=== PATIENT | female | born 1970 | race Caucasian/White ===

== ENCOUNTER 2018-06-15 19:20 | Emergency (ER) | payer MEDICARE, MEDICAID, SELFPAY ==
[2018-06-15] VITALS (8 sets, daily range): BP systolic 90–105; BP diastolic 60–74; PULSE 77–93; RESP 18–22; TEMP 36.7; O2SAT 93–96
--- NOTE | 2018-06-15 19:27 | DI.RAD.S_ITS ---
PROCEDURE: XR CHEST 1V INDICATIONS: chest pain TECHNIQUE: One view of the chest was acquired. COMPARISON: [facility], CR, XR CHEST 1 VIEW, 05/24/2018, 12:10. FINDINGS: Surgical changes and devices: None. Lungs and pleura: No pleural effusions or pneumothorax. Lungs are clear. Mediastinum: Mediastinal contours appear normal. Heart size is normal. Bones and chest wall: No suspicious bony lesions. Overlying soft tissues appear unremarkable. IMPRESSION: No acute pulmonary process. Dictated by: Keri Benites M.D. on 06/15/2018 at 20:40 Approved by: Keri Benites M.D. on 06/15/2018 at 20:41
[2018-06-15 19:49] LABS: Add Manual Diff / Slide Review NO; Basophils Percent Auto 0.6 % (0-2); Eosinophils Percent Auto 1.7 % (2-4); Hematocrit 39.7 % (36-46); Hemoglobin 13.2 g/dL (12.0-16.0); Lymphocytes Percent Auto 47.9 % (25-40); Mean Corpuscular HGB Conc 33.4 % (30-36); Mean Corpuscular Hemoglobin 28.2 PG (26-34); Mean Corpuscular Volume 84.3 fL (80-100); Monocytes Percent Auto 8.8 % (3-14); Neutrophils Absolute Auto 5000 /uL (3000-5900); Platelet Count 340 X10^3/uL (150-400); White Blood Cell Count 12.2 X10^3/uL (4.5-11.0)
[2018-06-15 19:55] LABS: Prothrombin Time 10.4 SECONDS (10.1-12.7)
[2018-06-15 19:58] LABS: PTT Partial Thromboplastin Tim 31 SECONDS (26.4-36.2)
[2018-06-15 19:59] LABS: Alanine Aminotransferase 24 IU/L (9-52); Albumin 3.8 g/dL (3.5-5.0); Albumin Globulin Ratio 1.2 (1.0-2.8); Alkaline Phosphatase 90 U/L (38-126); Aspartate Aminotransferase 22 IU/L (14-36); BUN Creatinine Ratio 7.3 (6-22); Bilirubin Total 0.2 mg/dL (0.2-1.3); Blood Urea Nitrogen 8 mg/dL (7-17); Calcium 8.6 mg/dL (8.4-10.2); Carbon Dioxide 28 mmol/L (22-32); Chloride 104 mmol/L (98-107); Creatine Kinase 56 U/L (30-135); Estimated Glomerular Filt Rate 52.8 mL/min (>60); Globulin 3.1 g/dL (1.7-4.1); Glucose 114 mg/dL (70-100); HEMOLYSIS < 15 (0-50); Lipase 106 U/L (23-300); Potassium 4.1 mmol/L (3.4-5.1); Sodium 140 mmol/L (137-145); Total Protein 6.9 g/dL (6.3-8.2)
[2018-06-15 20:12] LABS: Troponin I < 0.012 ng/mL (0.01-0.034)
--- NOTE | 2018-06-15 20:33 | DI.CT.S_ITS ---
PROCEDURE: CT ANGIO CHEST PE PROTOCOL INDICATIONS: SOB, CP, sedentary lifestyle, tachycardic TECHNIQUE: After the administration of intravenous contrast, 2 mm thick sections acquired from the pulmonary apices to the posterior costophrenic angles. 3-dimensional maximum intensity projection (MIP) coronal and sagittal reformats were then acquired through the thorax. For radiation dose reduction, the following was used: automated exposure control, adjustment of mA and/or kV according to patient size. COMPARISON: [facility], CR, XR CHEST 1V, 06/15/2018, 19:37. [facility], CT, CT ANGIO CHEST ABDOMEN, 05/25/2018, 13:58. FINDINGS: Image quality: Excellent. Pulmonary arteries: Pulmonary arteries are normal in size, and demonstrate no intraluminal filling defects to suggest central pulmonary embolism. Lungs and pleura: Minimal appearance of scattered groundglass like opacities. These are suspected to be residual of multiple areas of opacity identified on the 05/25/18 exam. No pleural effusions or pneumothorax. Central and peripheral airways are patent. Mediastinum: Heart size is normal, without pericardial effusion. No mediastinal or hilar adenopathy. Thoracic aorta is normal in caliber and enhancement. Esophagus is normal in caliber, without hiatal hernia. Bones and chest wall: No suspicious bony lesions. Ribs and thoracic spine appear intact throughout. Thyroid gland is unremarkable. No axillary or supraclavicular adenopathy. Abdomen: Hepatic cyst is noted. Otherwise, visualized upper abdominal solid organs appear normal in the early arterial phase of enhancement. IMPRESSION: 1. No pulmonary embolism. 2. Faint scattered groundglass opacities suggestive of resolving previously identified infection/inflammation. Dictated by: Keri Benites M.D. on 06/16/2018 at 8:44 Approved by: Keri Benites M.D. on 06/16/2018 at 8:47
--- NOTE | 2018-06-15 20:55 | ED_ITS ---
HPI - Chest Pain General Chief Complaint: Chest Pain Stated Complaint: Chest Pain Time Seen by Provider: 06/15/18 19:25 Source: patient and EMS Mode of arrival: EMS Limitations: no limitations History of Present Illness HPI narrative: 48-year-old female with history of hypertension hyperlipidemia presents with sharp and stabbing anterior chest pain without palliation or radiation which started sometime around noon today. She states it does hurt worse with movement or deep breath. She denies associated symptoms such as dizziness, weakness or lightheadedness. She denies any nausea, vomiting or diarrhea. She denies any history of the same. She does state that she feels short of breath but with further discussion it seems more related to a discomfort with a deep breath. She denies any recent travel, or injuries or surgeries, history of blood clots or cancer, she does mention that she historically just lays in bed all the time. She denies any lower extremity swelling or pain nor does she use any type of blood thinner. She does occasionally take aspirin. Patient was transported by EMS and was administered nitroglycerin which had no effect and morphine prior to her arrival. The morphine helped but that combination lowered her blood pressure to the 90s. MD complaint: chest pain Onset (ago): minute(s) Duration: intermittent Onset: during rest Pain location: substernal Severity: moderate Quality: sharp Pain radiation: none Relieving factors: nothing Exacerbating factors: inspiration Context: recent immobilization Treatments prior to arrival chest pain: aspirin and nitroglycerin Related Data On Oral Contraceptives: No Home Medications Medication Instructions Recorded Confirmed omeprazole 20 mg PO QDAY #0 06/18/11 rosuvastatin [Crestor] #0 12/07/11 alprazolam 0.25 mg PO PRN #0 10/01/12 aspirin 81 mg PO QDAY #0 09/14/16 lisinopril 2.5 mg PO QDAY #0 09/14/16 meloxicam [Mobic] 7.5 mg PO AMCC #0 tab 09/14/16 Previous Rx's Medication Instructions Recorded nitroglycerin [Nitrostat] 0.4 mg SUBLINGUAL Q5MP PRN #20 tab 09/15/16 Allergies Allergy/AdvReac Type Severity Reaction Status Date / Time adhesive [ADHESIVE] Allergy Intermediate RASH Verified 06/15/18 19:31 metformin [METFORMIN] AdvReac Intermediate VOMITING/DI Verified 06/15/18 19:31 ARRHEA codeine [CODEINE] AdvReac Mild VOMITING Verified 06/15/18 19:31 Review of Systems Review of Systems All systems reviewed & are unremarkable except as noted in HPI and below Constitutional Denies chills, Denies fever(s), Denies lethargy and Denies weakness Eyes Denies change in vision, Denies eye discharge, Denies irritation and Denies loss of vision ENT Ears, Nose, Mouth, and Throat: Denies change in voice, Denies neck pain and Denies sore throat Cardiovascular Reports chest pain, Denies irregular heart rhythm, Denies lightheadedness, Denies palpitations, Denies dyspnea, Denies dyspnea on exertion and Denies orthopnea Respiratory Denies cough, Reports pain on inspiration, Reports pain with cough, Denies dyspnea, Denies dyspnea on exertion and Denies wheezing Gastrointestinal Gastrointestinal: Denies abdominal pain, Denies change in bowel habits, Denies diarrhea, Denies nausea and Denies vomiting Genitourinary Denies hematuria, Denies flank pain, Denies urinary incontinence and Denies urinary urgency Musculoskeletal Denies neck pain Integumentary/Breasts Denies pruritus, Denies erythema, Denies rash and Denies wounds Neurologic Denies confusion, Denies loss of vision and Denies weakness Psychiatric Denies anxiety, Denies confusion, Denies depression, Denies homicidal ideation and Denies suicidal ideation Endocrine Denies palpitations Hematologic/Lymphatic Denies easy bruising Allergic/Immunologic Denies wheezing PFSH Medical History Anxiety (Acute) COPD (chronic obstructive pulmonary disease) (Acute) Chronic pain (Acute) Diabetes (Acute) Fibromyalgia (Acute) HTN (hypertension) (Acute) Hyperlipidemia (Acute) Exam Narrative Exam Narrative: 48-year-old female in obvious distress, tearful and anxious, clutching her anterior chest stating it hurts Initial Vital Signs Initial Vital Signs: Vital Signs Temperature 98.1 F 06/15/18 19:10 Pulse Rate 93 H 06/15/18 19:10 Respiratory Rate 18 06/15/18 19:10 Blood Pressure 103/70 06/15/18 19:10 Pulse Oximetry 95 06/15/18 19:10 Const General: cooperative, well developed, acute distress and anxious Nutritional Appearance: well nourished Orientation: alert, awake, oriented x3 and not confused HENVA Head: normocephalic and atraumatic Ears: external ears normal and TM's normal bilaterally Nose: external nose normal and No nasal discharge Face and sinus: sinuses nontender, face symmetric, no sinus tenderness and No dry mucous membranes Mouth: oral mucosae normal and moist mucous membranes Teeth and gingiva: dentition normal Throat: tonsils normal and uvula midline Eyes General: appearance normal, both eyes and all related structures Eyelids: eyelids normal Conjunctivae: conjunctivae normal Sclera: sclerae normal Pupils: PERRL EOM: EOM intact bilaterally Chest Chest: normal inspection of the chest and tenderness (With palpation of anterior chest) Resp Effort & Inspection: normal respiratory effort, able to speak in complete sentences, no respiratory distress and no use of accessory muscles Auscultation: clear to auscultation bilaterally, no rales, no rhonchi and no wheezes GI Inspection: non-distended Palpation: soft, no hepatosplenomegaly, No guarding, No pulsatile mass and No tender Auscultation: normal bowel sounds Back/Spine/Pelvis Back: No CVA tenderness Cervical Spine: cervical ROM normal and No pain with cervical ROM Thoracic/Lumbar Spine: thoracic and lumbar spine normal to inspection Skin General: no rashes or lesions noted, No jaundice and No petechiae Neuro General: alert, oriented x3, gait normal and no focal motor deficits Cognition: normal cognition Speech: speech normal Gait: normal gait Extrem General: full ROM, no clubbing, cyanosis or edema, no pedal edema and no calf tenderness Right lower extremity: no edema Left lower extremity: no edema Psych Appearance: well kempt Mental Status: mental status grossly normal Mood: anxious mood Attitude: cooperative Thought Content: normal and suicidality Judgment: judgment good Scores HEART Score Heart Score history: Slightly Suspicious Heart Score EKG: Normal Heart Score Age: 45-64 years old Heart Score risk factors: 1-2 risk factors Heart Score troponin: < or = to normal limit Heart Score Total: 2 Course Orders Ordered: ED Orders 06/15/18 20:33 CT angio chest PE protocol Stat Discontinued Medications Ketorolac Tromethamine (Toradol) 15 mg IV NOW ONE Stop: 06/15/18 20:34 Last Admin: 06/15/18 21:20 Dose: 15 mg Vital Signs - 8 hr 06/15/18 21:27 06/15/18 22:09 06/15/18 23:01 Pulse Rate 80 77 Respiratory Rate 21 19 20 Blood Pressure Blood Pressure [Left Arm] 97/74 95/74 90/66 Pulse Oximetry 95 96 96 06/15/18 23:24 06/15/18 23:29 Pulse Rate 78 78 Respiratory Rate 18 18 Blood Pressure 90/60 Blood Pressure [Left Arm] 90/60 Pulse Oximetry 95 95 MDM - Chest Pain Differential Diagnosis Likely pneumothorax, stable angina, unstable angina pectoris, atypical chest pain, st elevation myocardial infarction, costochondritis, chest pain and biliary colic Medical Records Data Attestation: I reviewed the patient's medical records. Lab Data Attestation: I reviewed the patient's lab results. Result diagrams: 06/15/18 19:39 06/15/18 19:39 Lab Results 06/15/18 06/15/18 06/15/18 Range/Units 19:39 19:39 19:39 WBC 12.2 H (4.5-11.0) X10^3/uL RBC 4.70 (4.0-5.2) X10^6/uL Hgb 13.2 (12.0-16.0) g/dL Hct 39.7 (36-46) % MCV 84.3 (80-100) fL MCH 28.2 (26-34) PG MCHC 33.4 (30-36) % RDW 16.0 H (11.6-14.8) % Plt Count 340 (150-400) X10^3/uL Neut % (Auto) 41.0 L (50-75) % Lymph % (Auto) 47.9 H (25-40) % Alfalfa % (Auto) 8.8 (3-14) % Eos % (Auto) 1.7 L (2-4) % Baso % (Auto) 0.6 (0-2) % Neut # (Auto) 5000 (7819-3674) /uL PT 10.4 (10.1-12.7) SECONDS INR 1.0 (0.9-1.3) APTT 31 (26.4-36.2) SECONDS Sodium 140 (137-145) mmol/L Potassium 4.1 (3.4-5.1) mmol/L Chloride 104 (98-107) mmol/L Carbon Dioxide 28 (22-32) mmol/L BUN 8 (7-17) mg/dL Creatinine 1.10 H (0.52-1.04) mg/dL Estimated GFR 52.8 L (>60) mL/min BUN/Creatinine Ratio 7.3 (6-22) Glucose 114 H (70-100) mg/dL Calcium 8.6 (8.4-10.2) mg/dL Total Bilirubin 0.2 (0.2-1.3) mg/dL AST 22 (14-36) IU/L ALT 24 (9-52) IU/L Alkaline Phosphatase 90 (38-126) U/L Total Creatine Kinase 56 (30-135) U/L Troponin I < 0.012 (0.01-0.034) ng/mL Total Protein 6.9 (6.3-8.2) g/dL Albumin 3.8 (3.5-5.0) g/dL Globulin 3.1 (1.7-4.1) g/dL Albumin/Globulin Ratio 1.2 (1.0-2.8) Lipase 106 (23-300) U/L Imaging Data CT scan - chest: Radiologist's impression: Pulmonary embolism is not identified. Scattered ground-glass opacities in the right upper, right middle lobe and lower lobes bilaterally may represent interstitial process of indeterminate chronicity. No pleural fluid. No thoracic aneurysm or dissection identified ECG Data Attestation: I personally reviewed and interpreted this ECG as follows: Prior ECG tracings: not available for review Interpretation: Normal sinus rhythm, rate 95, no ectopy. No signs ischemia status has ST segmental elevation or depression, or T-wave inversions MDM Narrative Medical decision making narrative: Patient presents with multiple hours of sharp and stabbing, reproducible anterior chest pain without radiation. She denies cardiac equivalent such as dizziness, weakness or lightheadedness, shortness of breath, nausea, vomiting or diaphoresis. EKG is normal sinus rhythm without any signs of ischemia. Troponins negative. HEART Score 2. Pain sharp and reproduceable on exam. CTA Chest shows no PE. Liver, GB, pancreatic labs normal. Patient has history of costochondritis and states this feels the same Discharge Plan Departure Patient Disposition: Home, Self-Care Clinical Impression: Acute chest wall pain Discharge Date/Time: 06/15/18 23:49 Interventions: ED Discharge Assessment Last Done: 06/15/18 23:29 Instructions: DI for Atypical Chest Pain Activity Restrictions/Additional Instructions: *You have been diagnosed with [ chest wall pain, noncardiac ] *What to do: *Take medications as directed, such as anti-inflammatories and Tylenol *Follow up with your primary care provider in 2-3 days, call for an appointment. Let them know you were seen in the Emergency Department and that we ask that you be seen in follow up *Return to ER if you should have any new, worsening or concerning symptoms , such as [ shortness of breath, fever over 101 F, persistent vomiting, other bothersome symptoms] Prescriptions: No Action omeprazole 20 MG capsule,delayed release(DR/EC) 20 mg PO QDAY Qty: 0 RF: 0 rosuvastatin [Crestor] 10 MG tablet Qty: 0 RF: 0 alprazolam 0.25 MG tablet 0.25 mg PO PRN Qty: 0 RF: 0 aspirin 81 MG tablet,delayed release (DR/EC) 81 mg PO QDAY Qty: 0 RF: 0 meloxicam [Mobic] 7.5 MG tablet 7.5 mg PO AMCC Qty: 0 RF: 0 lisinopril 2.5 MG tablet 2.5 mg PO QDAY Qty: 0 RF: 0 nitroglycerin [Nitrostat] 0.4 MG tablet, sublingual 0.4 mg Sublingual Q5MP PRNQty: 20 RF: 0 Referrals: Shikha Swartz PA-C [Primary Care Provider] -
[2018-06-15] MEDS: KETOROLAC 60 MG/2 ML VIAL 15 MG IV (21:20)
--- NOTE | 2018-06-15 23:27 | PC.NURSE ---
throughout the patient's stay she was holding her chest and complaining of severe pain. After the torodol IV she said the pains were less frequent but still quite sever when they came. Md made aware. Patient went in to tell patient she didn't have a blood clot and the Ibuprofen and tylenol would work best for what is most likely chondocondritis.
== END 2018-06-15 23:49 | disposition home or self-care (01) ==
PROVIDERS: Emergency Provider Emergency Medicine; Family Provider Physician Assistant; PCP Physician Assistant
DX: R07.89 Other chest pain (principal)
CPT/HCPCS: 36415; 71045; 71275; 80053; 82550; 82553; 83690; 84484; 85025; 85610; 85730; 93005; 96374; 99283; 99285; J1885; Q9967

== ENCOUNTER 2018-09-18 16:29 | Emergency (ER) | payer MEDICARE, MEDICAID, SELFPAY ==
[2018-09-18] VITALS (9 sets, daily range): BP systolic 92–123; BP diastolic 61–80; PULSE 70–80; RESP 12–26; TEMP 37; O2SAT 98–100; BMI 30.7
--- NOTE | 2018-09-18 16:55 | PC.NURSE ---
reports, woke up with headache, always waking with headache, dizziness, chest pain for 2 hours, shortness of breath, anxious, states, i should have taken xanax
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
[2018-09-18 17:35] LABS: Add Manual Diff / Slide Review NO; Basophils Percent Auto 0.7 % (0-2); Eosinophils Percent Auto 1.9 % (2-4); Hematocrit 42.2 % (36-46); Hemoglobin 13.8 g/dL (12.0-16.0); Lymphocytes Percent Auto 48.2 % (25-40); Mean Corpuscular HGB Conc 32.8 % (30-36); Mean Corpuscular Hemoglobin 27.5 PG (26-34); Mean Corpuscular Volume 83.7 fL (80-100); Monocytes Percent Auto 6.5 % (3-14); Neutrophils Absolute Auto 4800 /uL (3000-5900); Neutrophils Percent Auto 42.7 % (50-75); Platelet Count 315 X10^3/uL (150-400); Red Blood Cell Count 5.04 X10^6/uL (4.0-5.2); Red Cell Distribution Width 16.3 % (11.6-14.8); White Blood Cell Count 11.1 X10^3/uL (4.5-11.0)
--- NOTE | 2018-09-18 17:38 | PC.NURSE ---
medicated for comfort, states, squeezing
--- NOTE | 2018-09-18 17:38 | PC.NURSE ---
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
[2018-09-18] MEDS: MORPHINE 4 MG/ML INJ IV ×2 (17:40→19:23)
[2018-09-18] MEDS: ALPRAZolam 0.5 MG TABLET 1 MG PO (17:46)
[2018-09-18] MEDS: SODIUM CHLORIDE 0.9% 1,000 ML 1000 ML IV (17:49)
--- NOTE | 2018-09-18 17:49 | PC.NURSE ---
saline not scanned, pt arrived with ns infusing.
[2018-09-18 17:50] LABS: INR 0.9 (0.9-1.3); Prothrombin Time 9.8 SECONDS (10.1-12.7)
[2018-09-18 17:53] LABS: PTT Partial Thromboplastin Tim 31 SECONDS (26.4-36.2)
[2018-09-18 17:55] LABS: Alanine Aminotransferase 22 IU/L (9-52); Albumin Globulin Ratio 1.2 (1.0-2.8); Alkaline Phosphatase 84 U/L (38-126); Aspartate Aminotransferase 23 IU/L (14-36); Bilirubin Total 0.2 mg/dL (0.2-1.3); Blood Urea Nitrogen 8 mg/dL (7-17); Calcium 8.8 mg/dL (8.4-10.2); Carbon Dioxide 29 mmol/L (22-32); Chloride 104 mmol/L (98-107); Creatine Kinase 32 U/L (30-135); Estimated Glomerular Filt Rate > 60.0 mL/min (>60); Globulin 3.3 g/dL (1.7-4.1); Glucose 81 mg/dL (70-100); HEMOLYSIS < 15 (0-50); Lipase 116 U/L (23-300); Potassium 4.3 mmol/L (3.4-5.1); Sodium 141 mmol/L (137-145); Total Protein 7.3 g/dL (6.3-8.2)
[2018-09-18 18:00] LABS: B Type Natriuretic Peptide < 29.4 (<100)
[2018-09-18 18:07] LABS: Troponin I < 0.012 ng/mL (0.01-0.034)
--- NOTE | 2018-09-18 18:28 | PC.NURSE ---
pt states, still has pain, and states, not slurring at this time. reassured. still waiting for pending result
[2018-09-18 20:16] LABS: Troponin I < 0.012 ng/mL (0.01-0.034)
== END 2018-09-18 21:29 | disposition home or self-care (01) ==
PROVIDERS: Emergency Provider Emergency Medicine; Family Provider Physician Assistant; PCP Physician Assistant
DX: R07.89 Other chest pain (principal); Z77.29 Contact with and (suspected) exposure to other hazardous substances
CPT/HCPCS: 36415; 71045; 80053; 82550; 83690; 83880; 84484; 85025; 85610; 85730; 93005; 93010; 93041; 96361; 96374; 96376; 99285; J2270

== ENCOUNTER → 2018-12-24 12:45 | Outpatient (CLI) | payer MEDICARE, MEDICAID, SELFPAY ==
--- NOTE | 2018-12-24 | DI.RAD.S_ITS ---
PROCEDURE: XR KUB INDICATIONS: pain TECHNIQUE: One view of the abdomen acquired. COMPARISON: [facility], CT, KIDNEY/ URETER/BLADDER, 10/01/2012, 18:11. [facility], CT, CT ANGIO CHEST PE PROTOCOL, 06/15/2018, 20:32. FINDINGS: Surgical changes and devices: Surgical clips in the right lower quadrant. Bowel: Bowel gas pattern is nonspecific with proximal colonic gas and paucity of small bowel gas and distal colonic gas. Soft tissues: No suspicious abdominal calcifications. Visualized solid organ contours appear normal in size. Bones: No suspicious bony lesions. IMPRESSION: Nonspecific bowel gas pattern. If clinical symptoms persist or clinical suspicion for pathology is high, CT with contrast is suggested for further evaluation. Dictated by: Leah Salgado M.D. on 12/24/2018 at 17:33 Approved by: Leah Salgado M.D. on 12/24/2018 at 17:35
== END ==
PROVIDERS: Family Provider Physician Assistant; PCP Physician Assistant; Visit Provider Family Medicine
DX: R10.9 Unspecified abdominal pain (principal); R14.1 Gas pain
CPT/HCPCS: 74018

== ENCOUNTER 2019-01-10 03:48 | Emergency (ER) | payer MEDICARE, MEDICAID, SELFPAY ==
[2019-01-10] VITALS (14 sets, daily range): BP systolic 74–137; BP diastolic 54–96; PULSE 82–110; RESP 13–24; TEMP 36.4–36.7; O2SAT 89–98; BMI 29.2
[2019-01-10] MEDS: SODIUM CHLORIDE 0.9% 1,000 ML 1000 ML IV ×2 (04:30→05:30)
[2019-01-10 04:59] LABS: Add Manual Diff / Slide Review NO; Basophils Absolute Auto 100 /uL (0-100); Basophils Percent Auto 0.4 % (0-2); Eosinophils Absolute Auto 200 /uL (0-450); Eosinophils Percent Auto 1.3 % (2-4); Hematocrit 45.7 % (36-46); Hemoglobin 15.1 g/dL (12.0-16.0); Lymphocytes Absolute Auto 4800 /uL (1100-4500); Lymphocytes Percent Auto 39.4 % (25-40); Mean Corpuscular Hemoglobin 27.8 PG (26-34); Mean Corpuscular Volume 84.2 fL (80-100); Monocytes Absolute Auto 900 /uL (0-900); Monocytes Percent Auto 7.1 % (3-14); Neutrophils Absolute Auto 6300 /uL (1500-7000); Neutrophils Percent Auto 51.8 % (50-75); Platelet Count 325 X10^3/uL (150-400); Red Blood Cell Count 5.43 X10^6/uL (4.0-5.2); Red Cell Distribution Width 16.1 % (11.6-14.8); White Blood Cell Count 12.1 X10^3/uL (4.5-11.0)
[2019-01-10 05:04] LABS: Creatine Kinase 77 U/L (30-135)
[2019-01-10 05:12] LABS: Acetaminophen < 10 ug/mL (10-30); Alanine Aminotransferase 31 IU/L (9-52); Albumin 4.3 g/dL (3.5-5.0); Albumin Globulin Ratio 1.3 (1.0-2.8); Alkaline Phosphatase 64 U/L (38-126); Aspartate Aminotransferase 31 IU/L (14-36); BUN Creatinine Ratio 12.5 (6-22); Bilirubin Total 0.3 mg/dL (0.2-1.3); Blood Urea Nitrogen 10 mg/dL (7-17); Calcium 8.7 mg/dL (8.4-10.2); Carbon Dioxide 21 mmol/L (22-32); Chloride 107 mmol/L (98-107); Estimated Glomerular Filt Rate > 60.0 mL/min (>60); Ethanol (ETOH) 166 mg/dL; Globulin 3.3 g/dL (1.7-4.1); Glucose 118 mg/dL (70-100); HEMOLYSIS 28 (0-50); Potassium 4.7 mmol/L (3.4-5.1); Sodium 143 mmol/L (137-145); Total Protein 7.6 g/dL (6.3-8.2)
[2019-01-10 05:19] LABS: Troponin I < 0.012 ng/mL (0.01-0.034)
[2019-01-10 05:50] LABS: Urine Amphetamines Negative (Negative); Urine Barbiturates Negative (Negative); Urine Benzodiazepines Positive (Negative); Urine Cocaine Negative (Negative); Urine MDMA Negative (Negative); Urine Methadone Negative (Negative); Urine Methamphetamines Negative (Negative); Urine Morphine/Opi cutoff 2000 Negative (Negative); Urine Oxycodone Negative (Negative); Urine Phencyclidine Negative (Negative); Urine Tetrahydrocannabinol Positive (Negative); Urine Tricyclic Antidepressant Negative (Negative)
--- NOTE | 2019-01-10 06:06 | ED_ITS ---
HPI - Overdose <Jyothi Harish, DO - Last Filed: 01/12/19 07:46> General Chief Complaint: Toxicology Problem Stated Complaint: wants detox at [facility] Time Seen by Provider: 01/10/19 04:11 Source: patient and family Mode of arrival: ambulatory Limitations: no limitations History of Present Illness HPI Narrative: Patient is a 48-year-old female who presents 20 to go to detox from benzodiazepines. His she states that she called and got herself a bed at [facility]. However her speech is slurring and she is drowsy. Her daughter states that she took at least 8 Xanax prior to to calling her for a ride. She also drinks alcohol. His she now it is to the point where she is very difficult to understand. Her daughter says she has been through this with her many times in the past. She has significant history of coronary artery disease and cardiomyopathy. Onset (ago): hour(s) Related Data Home Medications Medication Instructions Recorded Confirmed alprazolam 2 mg PO QAM PRN 09/18/18 01/10/19 carvedilol 3.125 mg PO BID 09/18/18 01/10/19 fluticasone 1 spray INTRANASAL PRN PRN 09/18/18 01/10/19 fluticasone [Flovent HFA] 2 puff INHALATION BID 09/18/18 01/10/19 gabapentin 2 cap PO TID 09/18/18 01/10/19 isosorbide mononitrate 30 mg PO DAILY 09/18/18 01/10/19 liraglutide [Victoza 2-Leroy] 1.8 mg SUBCUT DAILY 09/18/18 01/10/19 loperamide 2 mg PO BID PRN 09/18/18 01/10/19 omeprazole 1 cap PO BID 09/18/18 01/10/19 ondansetron HCl 1 tab PO TID PRN 09/18/18 01/10/19 tizanidine 2 mg PO DAILY PRN 09/18/18 01/10/19 trazodone 100 mg PO BEDTIME PRN 09/18/18 01/10/19 alprazolam 1 mg PO QPM PRN 01/10/19 01/10/19 aspirin 325 mg PO DAILY 01/10/19 01/10/19 atorvastatin 20 mg PO DAILY 01/10/19 01/10/19 fluoxetine 80 mg PO DAILY 01/10/19 01/10/19 hydroxyzine pamoate 50 mg PO DAILY PRN 01/10/19 01/10/19 ibuprofen 800 mg PO Q6H PRN 01/10/19 01/10/19 lisinopril 2.5 mg PO DAILY 01/10/19 01/10/19 meloxicam 15 mg PO DAILY PRN 01/10/19 01/10/19 polyethylene glycol 3350 17 g PO DAILY 01/10/19 01/10/19 sucralfate 1 g PO QID 01/10/19 01/10/19 valacyclovir 1,000 mg PO Q8H 01/10/19 01/10/19 zolpidem 5 mg PO BEDTIME PRN 01/10/19 01/10/19 Previous Rx's Medication Instructions Recorded nitroglycerin [Nitrostat] 0.4 mg SUBLINGUAL Q5MP PRN #20 tab 09/15/16 Allergies Allergy/AdvReac Type Severity Reaction Status Date / Time adhesive [ADHESIVE] Allergy Intermediate RASH Verified 06/15/18 19:31 metformin [METFORMIN] AdvReac Intermediate VOMITING/DI Verified 06/15/18 19:31 ARRHEA codeine [CODEINE] AdvReac Mild VOMITING Verified 06/15/18 19:31 Review of Systems <Jyothi Moreira, - Last Filed: 01/12/19 07:46> Review of Systems ROS Unobtainable: All systems reviewed & are unremarkable except as noted in HPI and below Constitutional Denies fever(s) and Reports lethargy Eyes Denies change in vision, Denies eye discharge, Denies irritation and Denies loss of vision Cardiovascular Denies chest pain, Denies irregular heart rhythm, Denies lightheadedness, Denies palpitations, Denies dyspnea, Denies dyspnea on exertion and Denies orthopnea Respiratory Denies cough, Denies dyspnea, Denies dyspnea on exertion and Denies wheezing Gastrointestinal Gastrointestinal: Denies abdominal pain, Denies change in bowel habits, Denies diarrhea, Denies nausea and Denies vomiting Musculoskeletal Denies back pain, Denies muscle weakness, Denies numbness and Denies tingling Integumentary/Breasts Denies pruritus, Denies erythema, Denies rash and Denies wounds Neurologic Denies loss of vision, Denies numbness and Denies tingling Endocrine Denies palpitations Allergic/Immunologic Denies wheezing PFSH <DO Luke Juarez Last Filed: 01/12/19 07:46> Medical History Anxiety (Acute) COPD (chronic obstructive pulmonary disease) (Acute) Chronic pain (Acute) Diabetes (Acute) Fibromyalgia (Acute) HTN (hypertension) (Acute) Hyperlipidemia (Acute) Social History Smoking Status: Current every day smoker Social History Smoking Status: Current every day smoker alcohol intake: current substance use type: marijuana Exam <DO Luke Juarez Last Filed: 01/12/19 07:46> Initial Vital Signs Initial Vital Signs: Vital Signs Temperature 97.5 F L 01/10/19 03:55 Pulse Rate 110 H 01/10/19 03:55 Respiratory Rate 18 01/10/19 03:55 Blood Pressure 87/59 L 01/10/19 03:55 Pulse Oximetry 94 01/10/19 03:55 Gen.: Patient initially responsive to voice, drowsy continues to fall asleep HEENT: head is atraumatic pupils are equal reactive non pin point Neck: neck is supple Lungs: clear bilaterally no wheezing rales or rhonchi Cardiac: regular rate no murmurs Abdomen: soft nontender nondistended Extremities: moving all extremities Neurologic: slurring speech, responsive to painful stimuli <Annamarie Quispe DO - Last Filed: 01/10/19 18:06> Initial Vital Signs Initial Vital Signs: Vital Signs Temperature 97.5 F L 01/10/19 03:55 Pulse Rate 110 H 01/10/19 03:55 Respiratory Rate 18 01/10/19 03:55 Blood Pressure 87/59 L 01/10/19 03:55 Pulse Oximetry 94 01/10/19 03:55 Scores <DO Luke Juarez Last Filed: 01/12/19 07:46> GCS Davis coma scale eye opening: To pressure Red[place] coma scale verbal response: Words Davis coma scale motor response: Localising Davis coma scale total score: 10 Course <DO Luke Juarez Last Filed: 01/12/19 07:46> Orders Ordered: Discontinued Medications Aspirin (Aspirin Ec) 81 mg PO NOW ONE Stop: 01/10/19 11:19 Last Admin: 01/10/19 11:34 Dose: 81 mg Carvedilol (Coreg) 3.125 mg PO NOW ONE Stop: 01/10/19 11:19 Last Admin: 01/10/19 11:33 Dose: Not Given Carvedilol (Coreg) 3.125 mg PO NOW ONE Stop: 01/10/19 11:46 Last Admin: 01/10/19 11:44 Dose: 3.125 mg Gabapentin (Neurontin) 400 mg PO NOW ONE Stop: 01/10/19 11:19 Last Admin: 01/10/19 11:33 Dose: 400 mg Sodium Chloride (Normal Saline 0.9%) 1,000 mls @ 1,000 mls/hr IV CONT LUCIA Last Infusion: 01/10/19 05:30 Dose: 1,000 mls/hr Admin: 01/10/19 04:30 Dose: 1,000 mls/hr Sodium Chloride (Normal Saline 0.9%) 1,000 mls @ 1,000 mls/hr IV BOLUS ONE Stop: 01/10/19 07:37 Last Infusion: 01/10/19 06:42 Dose: 1,000 mls/hr Admin: 01/10/19 05:30 Dose: 1,000 mls/hr Isosorbide Mononitrate (Imdur) 30 mg PO NOW ONE Stop: 01/10/19 11:21 Last Admin: 01/10/19 11:33 Dose: 30 mg Lisinopril (Zestril) 5 mg PO NOW ONE Stop: 01/10/19 11:19 Last Admin: 01/10/19 11:33 Dose: 5 mg Pantoprazole Sodium (Protonix) 40 mg PO NOW ONE Stop: 01/10/19 11:17 Last Admin: 01/10/19 11:33 Dose: 40 mg Vital Signs - 8 hr 01/10/19 10:15 01/10/19 10:43 01/10/19 11:33 Temperature Pulse Rate 85 97 H 92 H Respiratory Rate 17 18 Blood Pressure 132/72 Blood Pressure [Left Arm] 105/67 137/92 H Pulse Oximetry 96 01/10/19 11:44 01/10/19 13:13 01/10/19 14:07 Temperature 98.1 F Pulse Rate 92 H 82 87 Respiratory Rate 14 18 Blood Pressure 132/79 125/92 H Blood Pressure [Left Arm] 130/82 Pulse Oximetry 96 98 <Annamarie Quispe, DO - Last Filed: 01/10/19 18:06> Orders Ordered: Discontinued Medications Aspirin (Aspirin Ec) 81 mg PO NOW ONE Stop: 01/10/19 11:19 Last Admin: 01/10/19 11:34 Dose: 81 mg Carvedilol (Coreg) 3.125 mg PO NOW ONE Stop: 01/10/19 11:19 Last Admin: 01/10/19 11:33 Dose: Not Given Carvedilol (Coreg) 3.125 mg PO NOW ONE Stop: 01/10/19 11:46 Last Admin: 01/10/19 11:44 Dose: 3.125 mg Gabapentin (Neurontin) 400 mg PO NOW ONE Stop: 01/10/19 11:19 Last Admin: 01/10/19 11:33 Dose: 400 mg Sodium Chloride (Normal Saline 0.9%) 1,000 mls @ 1,000 mls/hr IV CONT LUCIA Last Infusion: 01/10/19 05:30 Dose: 1,000 mls/hr Admin: 01/10/19 04:30 Dose: 1,000 mls/hr Sodium Chloride (Normal Saline 0.9%) 1,000 mls @ 1,000 mls/hr IV BOLUS ONE Stop: 01/10/19 07:37 Last Infusion: 01/10/19 06:42 Dose: 1,000 mls/hr Admin: 01/10/19 05:30 Dose: 1,000 mls/hr Isosorbide Mononitrate (Imdur) 30 mg PO NOW ONE Stop: 01/10/19 11:21 Last Admin: 01/10/19 11:33 Dose: 30 mg Lisinopril (Zestril) 5 mg PO NOW ONE Stop: 01/10/19 11:19 Last Admin: 01/10/19 11:33 Dose: 5 mg Pantoprazole Sodium (Protonix) 40 mg PO NOW ONE Stop: 01/10/19 11:17 Last Admin: 01/10/19 11:33 Dose: 40 mg Vital Signs - 8 hr 01/10/19 10:15 01/10/19 10:43 01/10/19 11:33 Temperature Pulse Rate 85 97 H 92 H Respiratory Rate 17 18 Blood Pressure 132/72 Blood Pressure [Left Arm] 105/67 137/92 H Pulse Oximetry 96 01/10/19 11:44 01/10/19 13:13 01/10/19 14:07 Temperature 98.1 F Pulse Rate 92 H 82 87 Respiratory Rate 14 18 Blood Pressure 132/79 125/92 H Blood Pressure [Left Arm] 130/82 Pulse Oximetry 96 98 MDM - Overdose <Jyothi Moreira DO - Last Filed: 01/12/19 07:46> Medical Records Attestation: I reviewed the patient's medical records. Lab Data Attestation: I reviewed the patient's lab results. Result diagrams: 01/10/19 04:15 01/10/19 04:15 Lab Results 01/10/19 01/10/19 01/10/19 Range/Units 04:15 04:15 04:15 WBC 12.1 H (4.5-11.0) X10^3/uL RBC 5.43 H (4.0-5.2) X10^6/uL Hgb 15.1 (12.0-16.0) g/dL Hct 45.7 (36-46) % MCV 84.2 (80-100) fL MCH 27.8 (26-34) PG MCHC 33.0 (30-36) % RDW 16.1 H (11.6-14.8) % Plt Count 325 (150-400) X10^3/uL Neut % (Auto) 51.8 (50-75) % Lymph % (Auto) 39.4 (25-40) % [place] % (Auto) 7.1 (3-14) % Eos % (Auto) 1.3 L (2-4) % Baso % (Auto) 0.4 (0-2) % Neut # (Auto) 6300 (4746-5915) /uL Lymph # (Auto) 4800 H (4799-7066) /uL [place] # (Auto) 900 (0-900) /uL Eos # (Auto) 200 (0-450) /uL Baso # (Auto) 100 (0-100) /uL Sodium 143 (137-145) mmol/L Potassium 4.7 (3.4-5.1) mmol/L Chloride 107 (98-107) mmol/L Carbon Dioxide 21 L (22-32) mmol/L BUN 10 (7-17) mg/dL Creatinine 0.80 (0.52-1.04) mg/dL Estimated GFR > 60.0 (>60) mL/min BUN/Creatinine Ratio 12.5 (6-22) Glucose 118 H (70-100) mg/dL Calcium 8.7 (8.4-10.2) mg/dL Total Bilirubin 0.3 (0.2-1.3) mg/dL AST 31 (14-36) IU/L ALT 31 (9-52) IU/L Alkaline Phosphatase 64 (38-126) U/L Total Creatine Kinase 77 (30-135) U/L CK-MB (CK-2) TNP CK-MB (CK-2) Rel Index TNP Troponin I < 0.012 (0.01-0.034) ng/mL Total Protein 7.6 (6.3-8.2) g/dL Albumin 4.3 (3.5-5.0) g/dL Globulin 3.3 (1.7-4.1) g/dL Albumin/Globulin Ratio 1.3 (1.0-2.8) Salicylates 6.0 (<20) mg/dL Urine Opiates Screen (Negative) Ur Oxycodone Screen (Negative) Urine Methadone Screen (Negative) Acetaminophen < 10 L (10-30) ug/mL Ur Barbiturates Screen (Negative) U Tricyclic Antidepress (Negative) Ur Phencyclidine Scrn (Negative) Ur Amphetamines Screen (Negative) U Methamphetamines Scrn (Negative) Ur MDMA Scrn (Ecstasy) (Negative) U Benzodiazepines Scrn (Negative) Urine Cocaine Screen (Negative) U Marijuana (THC) Screen (Negative) Ethyl Alcohol 166 mg/dL 01/10/19 Range/Units 05:30 WBC (4.5-11.0) X10^3/uL RBC (4.0-5.2) X10^6/uL Hgb (12.0-16.0) g/dL Hct (36-46) % MCV (80-100) fL MCH (26-34) PG MCHC (30-36) % RDW (11.6-14.8) % Plt Count (150-400) X10^3/uL Neut % (Auto) (50-75) % Lymph % (Auto) (25-40) % [place] % (Auto) (3-14) % Eos % (Auto) (2-4) % Baso % (Auto) (0-2) % Neut # (Auto) (8786-1732) /uL Lymph # (Auto) (6273-2487) /uL [place] # (Auto) (0-900) /uL Eos # (Auto) (0-450) /uL Baso # (Auto) (0-100) /uL Sodium (137-145) mmol/L Potassium (3.4-5.1) mmol/L Chloride (98-107) mmol/L Carbon Dioxide (22-32) mmol/L BUN (7-17) mg/dL Creatinine (0.52-1.04) mg/dL Estimated GFR (>60) mL/min BUN/Creatinine Ratio (6-22) Glucose (70-100) mg/dL Calcium (8.4-10.2) mg/dL Total Bilirubin (0.2-1.3) mg/dL AST (14-36) IU/L ALT (9-52) IU/L Alkaline Phosphatase (38-126) U/L Total Creatine Kinase (30-135) U/L CK-MB (CK-2) CK-MB (CK-2) Rel Index Troponin I (0.01-0.034) ng/mL Total Protein (6.3-8.2) g/dL Albumin (3.5-5.0) g/dL Globulin (1.7-4.1) g/dL Albumin/Globulin Ratio (1.0-2.8) Salicylates (<20) mg/dL Urine Opiates Screen Negative (Negative) Ur Oxycodone Screen Negative (Negative) Urine Methadone Screen Negative (Negative) Acetaminophen (10-30) ug/mL Ur Barbiturates Screen Negative (Negative) U Tricyclic Antidepress Negative (Negative) Ur Phencyclidine Scrn Negative (Negative) Ur Amphetamines Screen Negative (Negative) U Methamphetamines Scrn Negative (Negative) Ur MDMA Scrn (Ecstasy) Negative (Negative) U Benzodiazepines Scrn Positive H (Negative) Urine Cocaine Screen Negative (Negative) U Marijuana (THC) Screen Positive H (Negative) Ethyl Alcohol mg/dL Point of Care Testing Glucose POC 120 ECG Data Attestation: I personally reviewed and interpreted this ECG as follows: Prior ECG tracings: available for review Interpretation: normal sinus rhythm rate [address] changes no T-wave inversions similar to previous EKGs. MDM Narrative Medical decision making narrative: patient initially was able to give nurse some history with slurring of speech daughter. However patient progressively got sleepy ear responsive only to painful stimuli. Blood pressure also noted to decreased significantly it to a systolic in the 70s. She is given IV fluids placed in Trendelenburg. It does quickly return to the 90s. Patient is sleeping. Positive for alcohol as well. We did call to check bed placement for his [facility] right now they do not have beds is however they think that there will be discharges in the morning and they do request a social work evaluation. At this point patient is not medically cleared she will need to wake up and be more responsive and able to engage in conversation. Patient signed out to Dr. Quispe for further evaluation and treatment. <Annamarie Quispe, - Last Filed: 01/10/19 18:06> Lab Data Attestation: I reviewed the patient's lab results. Lab Results 01/10/19 01/10/19 01/10/19 Range/Units 04:15 04:15 04:15 WBC 12.1 H (4.5-11.0) X10^3/uL RBC 5.43 H (4.0-5.2) X10^6/uL Hgb 15.1 (12.0-16.0) g/dL Hct 45.7 (36-46) % MCV 84.2 (80-100) fL MCH 27.8 (26-34) PG MCHC 33.0 (30-36) % RDW 16.1 H (11.6-14.8) % Plt Count 325 (150-400) X10^3/uL Neut % (Auto) 51.8 (50-75) % Lymph % (Auto) 39.4 (25-40) % [place] % (Auto) 7.1 (3-14) % Eos % (Auto) 1.3 L (2-4) % Baso % (Auto) 0.4 (0-2) % Neut # (Auto) 6300 (7460-6095) /uL Lymph # (Auto) 4800 H (0448-8596) /uL [place] # (Auto) 900 (0-900) /uL Eos # (Auto) 200 (0-450) /uL Baso # (Auto) 100 (0-100) /uL Sodium 143 (137-145) mmol/L Potassium 4.7 (3.4-5.1) mmol/L Chloride 107 (98-107) mmol/L Carbon Dioxide 21 L (22-32) mmol/L BUN 10 (7-17) mg/dL Creatinine 0.80 (0.52-1.04) mg/dL Estimated GFR > 60.0 (>60) mL/min BUN/Creatinine Ratio 12.5 (6-22) Glucose 118 H (70-100) mg/dL Calcium 8.7 (8.4-10.2) mg/dL Total Bilirubin 0.3 (0.2-1.3) mg/dL AST 31 (14-36) IU/L ALT 31 (9-52) IU/L Alkaline Phosphatase 64 (38-126) U/L Total Creatine Kinase 77 (30-135) U/L CK-MB (CK-2) TNP CK-MB (CK-2) Rel Index TNP Troponin I < 0.012 (0.01-0.034) ng/mL Total Protein 7.6 (6.3-8.2) g/dL Albumin 4.3 (3.5-5.0) g/dL Globulin 3.3 (1.7-4.1) g/dL Albumin/Globulin Ratio 1.3 (1.0-2.8) Salicylates 6.0 (<20) mg/dL Urine Opiates Screen (Negative) Ur Oxycodone Screen (Negative) Urine Methadone Screen (Negative) Acetaminophen < 10 L (10-30) ug/mL Ur Barbiturates Screen (Negative) U Tricyclic Antidepress (Negative) Ur Phencyclidine Scrn (Negative) Ur Amphetamines Screen (Negative) U Methamphetamines Scrn (Negative) Ur MDMA Scrn (Ecstasy) (Negative) U Benzodiazepines Scrn (Negative) Urine Cocaine Screen (Negative) U Marijuana (THC) Screen (Negative) Ethyl Alcohol 166 mg/dL 01/10/19 Range/Units 05:30 WBC (4.5-11.0) X10^3/uL RBC (4.0-5.2) X10^6/uL Hgb (12.0-16.0) g/dL Hct (36-46) % MCV (80-100) fL MCH (26-34) PG MCHC (30-36) % RDW (11.6-14.8) % Plt Count (150-400) X10^3/uL Neut % (Auto) (50-75) % Lymph % (Auto) (25-40) % [place] % (Auto) (3-14) % Eos % (Auto) (2-4) % Baso % (Auto) (0-2) % Neut # (Auto) (6037-7998) /uL Lymph # (Auto) (1001-9391) /uL [place] # (Auto) (0-900) /uL Eos # (Auto) (0-450) /uL Baso # (Auto) (0-100) /uL Sodium (137-145) mmol/L Potassium (3.4-5.1) mmol/L Chloride (98-107) mmol/L Carbon Dioxide (22-32) mmol/L BUN (7-17) mg/dL Creatinine (0.52-1.04) mg/dL Estimated GFR (>60) mL/min BUN/Creatinine Ratio (6-22) Glucose (70-100) mg/dL Calcium (8.4-10.2) mg/dL Total Bilirubin (0.2-1.3) mg/dL AST (14-36) IU/L ALT (9-52) IU/L Alkaline Phosphatase (38-126) U/L Total Creatine Kinase (30-135) U/L CK-MB (CK-2) CK-MB (CK-2) Rel Index Troponin I (0.01-0.034) ng/mL Total Protein (6.3-8.2) g/dL Albumin (3.5-5.0) g/dL Globulin (1.7-4.1) g/dL Albumin/Globulin Ratio (1.0-2.8) Salicylates (<20) mg/dL Urine Opiates Screen Negative (Negative) Ur Oxycodone Screen Negative (Negative) Urine Methadone Screen Negative (Negative) Acetaminophen (10-30) ug/mL Ur Barbiturates Screen Negative (Negative) U Tricyclic Antidepress Negative (Negative) Ur Phencyclidine Scrn Negative (Negative) Ur Amphetamines Screen Negative (Negative) U Methamphetamines Scrn Negative (Negative) Ur MDMA Scrn (Ecstasy) Negative (Negative) U Benzodiazepines Scrn Positive H (Negative) Urine Cocaine Screen Negative (Negative) U Marijuana (THC) Screen Positive H (Negative) Ethyl Alcohol mg/dL Point of Care Testing Glucose POC 120 ECG Data Attestation: I personally reviewed and interpreted this ECG as follows: Interpretation: sinus rhythm, rate of 90, pr of 164, qrs of 101, qtc of 439. NO ST changes appreciated. MDM Narrative Medical decision making narrative: Patient evaluated by myself after signed out by Dr. Moreira. Patient awakens easily to verbal stimuli but falls back asleep quickly. Labs were reviewed, EKG UDS. Plan at this time is to wait for patient to be medically cleared. If she continues to wish for detox will consult with social work and recontact [facility] as they had potential beds available today. Recheck 1030, patient is still quite sleepy but arouses easily to verbal stimuli. She is rolling around on the bed frequently. She is waking up. 1130, recheck. Patient is alert and oriented. Dong much better. She is still interested in Detox. She denies taking any additional xanax, family had suspected that she had. She did have alcohol on board initially so unclear if purely related to alcohol or combination. Patient is medically cleared for detox. [facility] contacted. Sending over information. [facility] declines based on patient's past medical history. I discussed with patient. She plans to return home at this time and is comfortable returning home. She is already calling her daughter for a ride while I am in the room. She does not show any signs of withdrawal at this time. Patient was given some additional options. Discharge Plan Departure Patient Disposition: Home Clinical Impression: Desire for detoxification, Alcohol intoxication Discharge Date/Time: 01/10/19 14:09 Interventions: ED Discharge Assessment Last Done: 01/10/19 14:07 Activity Restrictions/Additional Instructions: Follow-up with your primary care office/[facility] or the attached number for options for detox. Continue home medications as prescribed. I do recommend avoiding alcohol. Return to the ER if you are having shaking, tremors, new chest pain, shortness of breath, passing out, persistent vomiting or other new or concerning symptoms. Below is another option for assistance if needed. If you feel you need to go to [facility]. Call had of time ([phone]) to inquire about an available bed. If there are no beds called daily and 9 AM and 9 PM to check on bed availability. If you're feeling suicidal or having suicidal thoughts, contact the suicide hotline: . Prescriptions: No Action nitroglycerin [Nitrostat] 0.4 MG tablet, sublingual 0.4 mg Sublingual Q5MP PRNQty: 20 RF: 0 tizanidine 4 mg tablet 2 mg PO DAILY PRN (Reason: muscle spasm) RF: 0 ondansetron HCl 8 mg tablet 1 tab PO TID PRN (Reason: Nausea And Vomiting) RF: 0 isosorbide mononitrate 30 mg tablet extended release 24 hr 30 mg PO DAILY RF: 0 gabapentin 400 mg capsule 2 cap PO TID RF: 0 carvedilol 3.125 mg tablet 3.125 mg PO BID RF: 0 trazodone 100 mg tablet 100 mg PO BEDTIME PRN (Reason: insomnia or depression) RF: 0 Flovent HFA 44 mcg/actuation HFA aerosol inhaler 2 puff Inhalation BID RF: 0 omeprazole 20 mg capsule,delayed release(DR/EC) 1 cap PO BID RF: 0 alprazolam 2 mg tablet 2 mg PO QAM PRN (Reason: Anxiety) RF: 0 fluticasone 50 mcg/actuation spray,suspension 1 spray Intranasal PRN PRN (Reason: Allergy Symptoms) RF: 0 loperamide 2 mg capsule 2 mg PO BID PRN (Reason: Diarrhea) RF: 0 Victoza 2-Leroy 0.6 mg/0.1 mL (18 mg/3 mL) Pen Injector 1.8 mg subcut DAILY RF: 0 atorvastatin 20 mg tablet 20 mg PO DAILY RF: 0 fluoxetine 40 mg capsule 80 mg PO DAILY RF: 0 hydroxyzine pamoate 50 mg capsule 50 mg PO DAILY PRN (Reason: itching and hives) RF: 0 zolpidem 5 mg tablet 5 mg PO BEDTIME PRN (Reason: Sleep) RF: 0 polyethylene glycol 3350 17 gram Powder In Packet 17 g PO DAILY RF: 0 aspirin 325 mg Tablet 325 mg PO DAILY RF: 0 ibuprofen 800 mg Tablet 800 mg PO Q6H PRN (Reason: pain and inflammation) RF: 0 meloxicam 15 mg Tablet 15 mg PO DAILY PRN (Reason: pain and inflammation) RF: 0 sucralfate 1 gram tablet 1 g PO QID RF: 0 valacyclovir 500 mg Tablet 1,000 mg PO Q8H RF: 0 alprazolam 2 mg tablet 1 mg PO QPM PRN (Reason: Anxiety) RF: 0 lisinopril 2.5 mg tablet 2.5 mg PO DAILY RF: 0 Referrals: Shikha Swartz PA-C [Primary Care Provider] -
--- NOTE | 2019-01-10 06:24 | PC.NURSE ---
Pt states she wants to go to detox for benzodiazapines, and called [facility] to get herself a bed an hour prior to arrival and is here for a medical clearance to go there. 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 Pt lives alone and called daugther to bring her here. Her daughter is at bedside and reports pt told her she took more Xanax than she should have, 8mg of Xanax, prior to calling her for a ride because she new she was going to detox. Daughter states pt has a hx of sustance abuse with prior detox and hospitalization. Pt is lethargic and slurring speech upon answering questions. PT denies wanting to harm self or others. Pt states she has DM type 2, cardiomyopathy and coronary artery disease.
--- NOTE | 2019-01-10 08:06 | PC.NURSE ---
pt is too drowsy to do well on the gcs. wakes up and falls back to sleep before answering simple questions. snoring loudly. maintaining airway.
--- NOTE | 2019-01-10 10:45 | PC.NURSE ---
Pt sleeping but wakes easily to a/o x 4. Taking water po. Encouraged to eat breakfast. Pt asking for xanax, states she didn't have any yesterday. Easy work of breathing. Skin is pink / warm/ dry.
--- NOTE | 2019-01-10 10:55 | PC.NURSE ---
Called for [facility] evaluation. Now pending.
[2019-01-10] MEDS: ISOSORBIDE MONONITRATE ER 30 MG TABLET PO (11:33)
[2019-01-10] MEDS: LISINOPRIL 5 MG TABLET PO (11:33)
[2019-01-10] MEDS: PANTOPRAZOLE 20 MG TABLET 40 MG PO (11:33)
[2019-01-10] MEDS: GABAPENTIN 100 MG CAPSULE 400 MG PO (11:33)
[2019-01-10] MEDS: ASPIRIN EC 81 MG TABLET PO (11:34)
[2019-01-10] MEDS: CARVEDILOL 3.125 MG TABLET PO (11:44)
--- NOTE | 2019-01-10 11:58 | PC.NURSE ---
Spoke w/ Estefania from [facility] intake [phone]. Will fax documents to [phone].
== END 2019-01-10 14:09 | disposition home or self-care (01) ==
PROVIDERS: Emergency Medicine; Emergency Provider Emergency Medicine; Family Provider Physician Assistant; PCP Physician Assistant
DX: F10.929 Alcohol use, unspecified with intoxication, unspecified (principal)
CPT/HCPCS: 80053; 80305; 80320; 80329; 82550; 82962; 84484; 85025; 93005; 96360; 96361; 99285; G0480

== ENCOUNTER → 2019-03-11 07:39 | Outpatient (CLI) | payer MEDICARE, MEDICAID, SELFPAY ==
--- NOTE | 2019-03-11 | DI.MRI.S_ITS ---
PROCEDURE: MR HEAD/BRAIN WO/W CON INDICATIONS: MEMORY LOSS/WEAKNESS/DIPLOPIA TECHNIQUE: Noncontrast axial T1 spin echo, axial T2 fast spin echo, sagittal and axial FLAIR, coronal T2 fast spin echo, axial gradient echo, axial diffusion and ADC through the brain. After the administration of contrast, axial and coronal 3D VIBE or T1 spin echo with fat saturation through the brain. COMPARISON: None. FINDINGS: Image quality: Partially degraded by motion artifact. CSF Spaces: Basal cisterns are patent. No extra-axial fluid collections. Ventricles are normal in size and shape. Brain: No midline shift. No intracranial bleeds or masses. No abnormal intracranial enhancement. The brainstem appears normal. Diffusion-weighted images demonstrate no acute ischemic insults. No chronic ischemic insults. Normal intravascular flow voids are present. Skull and face: Calvarial marrow is normal in signal. Orbits appear normal. Sinuses: Mild mucosal thickening within the bilateral sphenoid and right ethmoid air cells. Sinuses and mastoids otherwise appear clear. IMPRESSION: No acute intracranial abnormality. No explanation for memory loss, weakness, nor diplopia. Dictated by: Ericka Merrill M.D. on 03/11/2019 at 9:35 Approved by: Ericka Merrill M.D. on 03/11/2019 at 9:38
== END ==
PROVIDERS: PCP Family Medicine; Visit Provider Psychiatry & Neurology Neurology
DX: R41.3 Other amnesia (principal); R53.1 Weakness; H53.2 Diplopia
CPT/HCPCS: 70553

== ENCOUNTER 2019-08-03 05:58 | Emergency (ER) | payer MEDICARE, MEDICAID, OTHER, SELFPAY ==
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
[2019-08-03 06:00] VITALS: BP 118/74; PULSE 112; RESP 20; TEMP 36.8; O2SAT 97; BMI 27.6
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
[2019-08-03] MEDS: ACETAMINOPHEN 325 MG TABLET 975 MG PO (06:41)
[2019-08-03 07:57] VITALS: BP 116/71; PULSE 105; RESP 15; O2SAT 94
[2019-08-03] MEDS: HYDROCODONE/ACET 5/325 PREPACK 1 BOTTLE MISC (07:57)
== END 2019-08-03 08:02 | disposition home or self-care (01) ==
PROVIDERS: Emergency Provider Emergency Medicine; PCP Family Medicine
DX: S00.83XA Contusion of other part of head, initial encounter (principal); S02.2XXA Fracture of nasal bones, initial encounter for closed fracture; Y04.0XXA Assault by unarmed brawl or fight, initial encounter
CPT/HCPCS: 70450; 70486; 99283

== ENCOUNTER → 2020-04-07 13:29 | Outpatient (CLI) | payer MEDICARE, MEDICAID, SELFPAY ==
--- NOTE | 2020-04-07 | DI.MRI.S_ITS ---
PROCEDURE: MR HIP LT WO CON INDICATIONS: PAIN IN LEFT HIP TECHNIQUE: Noncontrast coronal T1 spin echo and STIR through the bony pelvis. Coronal and axial T2 fast spin echo with fat saturation, sagittal T1 spin echo, and oblique axial T2 fast spin echo with fat saturation through the hip. COMPARISON: None. FINDINGS: Image quality: Excellent. Bones and joints: Bone marrow of the pelvic ring and proximal femurs show normal signal throughout. No intraosseous lesions or fractures. No avascular necrosis of the femoral heads. The visualized lower lumbar spine appears normally aligned. Tendons and ligaments: The gluteus medius and minimus tendons appear intact, without associated muscle atrophy. The nearby proximal iliotibial band also appears intact. The iliopsoas tendon appears intact, without adjacent bursal fluid collections or evidence for impingement syndrome. Note is made of definite asymmetric edema along the greater trochanteric bursa on the left, without a focal fluid collection. The appearance is consistent with a mild bursitis in this area, in the absence of blood trauma to that site. The origin of the hamstring tendon is intact at the ischial tuberosity, as well as the associated sacrotuberous ligament. The straight and reflected heads of the rectus femoris muscle origin appear intact, as well as the conjoint tendon. The ligamentum teres appears intact where visualized. Labrum and cartilage: The acetabular labrum appears intact in the absence of intra-articular contrast. Cartilage surface of the femoral head appears of normal thickness. The alpha angle of the femur is within normal limits at less than 55 degrees. Soft tissues: Visualized muscles demonstrate normal bulk and internal signal. Quadratus femoris muscle demonstrates no internal edema to suggest ischiofemoral impingement. The proximal sciatic neurovascular bundle appears normal adjacent to the hamstring tendons. No free pelvic fluid. Bladder wall thickness is normal. Genitourinary structures and bowel loops appear normal where visualized. IMPRESSION: Mild greater trochanteric bursitis present at the lateral border of the left hip, in the setting of absence of focal blunt trauma to that site. Elsewhere the examination is normal for age. Minimal hip joint osteoarthritis incidentally noted, symmetric bilaterally. Dictated by: You Pickard M.D. on 04/07/2020 at 16:10 Approved by: You Pickard M.D. on 04/07/2020 at 16:12
== END ==
PROVIDERS: PCP Family Medicine; Referring Provider Orthopaedic Surgery Adult Reconstructive Orthopaedic Surgery; Visit Provider Orthopaedic Surgery Adult Reconstructive Orthopaedic Surgery
DX: M25.552 Pain in left hip (principal); M70.62 Trochanteric bursitis, left hip
CPT/HCPCS: 73721

== ENCOUNTER → 2020-05-07 12:45 | Outpatient (CLI) | payer MEDICARE, MEDICAID, SELFPAY ==
--- NOTE | 2020-05-07 12:47 | DI.MRI.S_ITS ---
PROCEDURE: MR LUMBAR SPINE WO CON INDICATIONS: Low back pain TECHNIQUE: Noncontrast sagittal T1 spin echo and T2 fast echo, sagittal STIR, axial T1 and T2 fast spin echo through the lumbar spine. In cases with scoliosis, additional coronal T2 fast spin echo may be performed. COMPARISON: None. FINDINGS: Image quality: Excellent. Alignment and Curvature: There is normal bony alignment. Bone Marrow: Marrow is of normal overall signal. No acute vertebral body compression fractures. Spinal Cord: Conus medullaris terminates at the L1-L2 level. Visualized cord demonstrates normal signal and size. Paraspinous Soft Tissues: No paravertebral masses. T12-L1: Minimal disc bulge. Mild facet hypertrophy. No canal stenosis or foraminal stenosis. L1-L2: Mild facet hypertrophy. No canal stenosis or foraminal stenosis. L2-L3: Mild facet hypertrophy. No canal stenosis or foraminal stenosis. L3-L4: Mild disc bulge. Facet and ligament hypertrophy. No canal stenosis. Far right lateral disc protrusion impinging on the right L3 nerve root far laterally. L4-L5: Mild disc bulge. Facet ligament hypertrophy. Borderline canal stenosis. Mild bilateral foraminal narrowing. L5-S1: Bilateral facet hypertrophy. Mild disc bulge. No canal stenosis or foraminal stenosis. IMPRESSION: 1. There is a focal far right lateral disc protrusion at L3-L4, impinging on the right L3 nerve root far laterally. Question: Does this patient have a right L3 radiculopathy? 2. Multilevel facet arthropathy. 3. Mild multilevel disc bulges Dictated by: Ghassan Morales M.D. on 05/07/2020 at 13:21 Approved by: Ghassan Morales M.D. on 05/07/2020 at 13:29
== END ==
PROVIDERS: PCP Family Medicine; Referring Provider Physical Medicine & Rehabilitation; Visit Provider Physical Medicine & Rehabilitation
DX: M51.26 Other intervertebral disc displacement, lumbar region (principal); M47.816 Spondylosis without myelopathy or radiculopathy, lumbar region
CPT/HCPCS: 72148

== ENCOUNTER 2020-07-29 23:53 | Emergency (ER) | payer MEDICARE, MEDICAID, SELFPAY ==
--- NOTE | 2020-07-29 23:54 | ED_ITS ---
HPI - Chest Pain General Chief Complaint: Arrhythmia/Palpitations Stated Complaint: states heart issues/pulse 130 Time Seen by Provider: 07/29/20 23:54 Source: patient Mode of arrival: Ambulatory Limitations: no limitations History of Present Illness HPI narrative: 50-year-old female smoker with history of anxiety and substance abuse presents with a chief complaint of palpitations, chest pain and shortness of breath that started a few hours ago. She denies any provocation, palliation or radiation of her symptoms. She is not dizzy nor weak or lightheaded. She states she had a few drinks for the 1st time in the past few days tonight and had a THC edible she denies any cocaine or methamphetamines. She denies any change in her diet or medications. She has had a runny nose, sore throat or fever or chills. She denies any abdominal pain or change in bowel habits such as constipation or diarrhea. She denies any dysuria, frequency or urgency. MD complaint: chest pain Onset (ago): hour(s) Duration: constant Onset: during rest Pain location: substernal Severity: moderate Quality: tightness Associated symptoms: palpitations Treatments prior to arrival chest pain: aspirin Related Data On Oral Contraceptives: No Home Medications Medication Instructions Recorded Confirmed alprazolam 2 mg PO QAM PRN 09/18/18 01/10/19 carvedilol 3.125 mg PO BID 09/18/18 01/10/19 fluticasone propionate 1 spray INTRANASAL PRN PRN 09/18/18 01/10/19 fluticasone propionate [Flovent 2 puff INHALATION BID 09/18/18 01/10/19 HFA] gabapentin 2 cap PO TID 09/18/18 01/10/19 isosorbide mononitrate 30 mg PO DAILY 09/18/18 01/10/19 liraglutide [Victoza 2-Leroy] 1.8 mg SUBCUT DAILY 09/18/18 01/10/19 loperamide 2 mg PO BID PRN 09/18/18 01/10/19 omeprazole 1 cap PO BID 09/18/18 01/10/19 ondansetron HCl 1 tab PO TID PRN 09/18/18 01/10/19 tizanidine 2 mg PO DAILY PRN 09/18/18 01/10/19 trazodone 100 mg PO BEDTIME PRN 09/18/18 01/10/19 alprazolam 1 mg PO QPM PRN 01/10/19 01/10/19 aspirin 325 mg PO DAILY 01/10/19 01/10/19 atorvastatin 20 mg PO DAILY 01/10/19 01/10/19 fluoxetine 80 mg PO DAILY 01/10/19 01/10/19 hydroxyzine pamoate 50 mg PO DAILY PRN 01/10/19 01/10/19 ibuprofen 800 mg PO Q6H PRN 01/10/19 01/10/19 lisinopril 2.5 mg PO DAILY 01/10/19 01/10/19 meloxicam 15 mg PO DAILY PRN 01/10/19 01/10/19 polyethylene glycol 3350 17 g PO DAILY 01/10/19 01/10/19 sucralfate 1 g PO QID 01/10/19 01/10/19 valacyclovir 1,000 mg PO Q8H 01/10/19 01/10/19 zolpidem 5 mg PO BEDTIME PRN 01/10/19 01/10/19 Previous Rx's Medication Instructions Recorded nitroglycerin [Nitrostat] 0.4 mg SUBLINGUAL Q5MP PRN #20 tab 09/15/16 hydrocodone-acetaminophen 1 tab PO Q4-6H PRN #10 tab 08/03/19 doxycycline hyclate 100 mg PO BID #20 tab 07/30/20 fluconazole 150 mg PO Q3D #2 tab 07/30/20 Allergies Allergy/AdvReac Type Severity Reaction Status Date / Time adhesive [ADHESIVE] Allergy Intermediate RASH Verified 08/03/19 06:09 metformin [METFORMIN] AdvReac Intermediate VOMITING/DI Verified 08/03/19 06:09 ARRHEA codeine [CODEINE] AdvReac Mild VOMITING Verified 08/03/19 06:09 Review of Systems Constitutional Constitutional: Denies chills, Denies fatigue, Denies fever(s), Denies frequent falls, Denies lethargy and Denies weakness Eyes Eyes: Denies change in vision, Denies eye discharge, Denies irritation and Denies loss of vision ENT Ears, Nose, Mouth, and Throat: Denies change in voice, Denies dizziness, Denies neck pain, Denies sore throat and Denies throat swelling Cardiovascular Cardiovascular: Reports chest pain, Reports rapid heart rate, Reports irregular heart rhythm, Denies lightheadedness, Denies palpitations, Denies dyspnea, Denies dyspnea on exertion and Denies orthopnea Respiratory Respiratory: Denies cough, Denies dyspnea, Denies dyspnea on exertion and Denies wheezing Gastrointestinal Gastrointestinal: Denies abdominal pain, Denies change in bowel habits, Denies diarrhea, Denies nausea and Denies vomiting Musculoskeletal Musculoskeletal: Denies neck pain and Denies numbness Integumentary/Breasts Skin/Breast: Denies pruritus, Denies erythema, Denies rash and Denies wounds Neurologic Neurologic: Denies behavioral changes, Denies confusion, Denies dizziness, Denies frequent falls, Denies loss of vision, Denies numbness and Denies weakness Psychiatric Psychiatric: Reports anxiety, Denies behavioral changes, Denies confusion, Denies depression, Denies homicidal ideation and Denies suicidal ideation Endocrine Endocrine: Denies fatigue, Denies flushing and Denies palpitations Hematologic/Lymphatic Hematologic/Lymphatic: Denies easy bruising Allergic/Immunologic Allergic/Immunologic: Denies urticaria, Denies throat swelling and Denies wheezing Patient History Medical History Anxiety (Acute) Chronic pain (Acute) COPD (chronic obstructive pulmonary disease) (Acute) Diabetes (Acute) Fibromyalgia (Acute) HTN (hypertension) (Acute) Hyperlipidemia (Acute) Social History Smoking Status: Current every day smoker alcohol intake: current substance use type: marijuana Smoking Status: Current every day smoker alcohol intake frequency: 3 or more drinks per day Substance Use Type: marijuana and prescription drug Exam Narrative Exam Narrative: GENERAL: [50] year old patient appears stated age. Well- nourished, well-developed patient, in mild distress. Anxious, tearful HEAD: Atraumatic. Normocephalic. EYES: Pupils equal round and reactive. Extraocular motions intact. No scleral icterus. No injection or drainage. ENT: Nose without bleeding, purulent drainage. Throat without erythema, tonsillar hypertrophy or exudate. Airway patent. NECK: Trachea midline. Non tender CARDIOVASCULAR: Tachycardic and regular rhythm without murmurs, gallops, or rubs. RESPIRATORY: Clear to auscultation. Breath sounds equal bilaterally. No wheezes, rales, or rhonchi. GASTROINTESTINAL: Abdomen soft, non-tender, nondistended. EXTREMITIES: No edema or joint tenderness. BACK: Nontender without deformity or crepitance. No flank tenderness. NEURO: AOx3. SKIN: No rash or erythema of visible areas Initial Vital Signs Initial Vital Signs: Vital Signs Temperature 97.9 F 07/30/20 00:00 Pulse Rate 130 H 07/30/20 00:00 Respiratory Rate 24 07/30/20 00:00 Blood Pressure 169/94 H 07/30/20 00:00 Pulse Oximetry 96 07/30/20 00:00 Course Orders Ordered: ED Orders 07/29/20 23:54 EKG-12 Lead Stat 07/30/20 00:01 XR chest 1V Stat 07/30/20 00:05 Complete Blood Count AUTO DIFF Stat Comprehensive Metabolic Panel Stat D Dimer Stat Magnesium Stat NT-proBNP (BNP-Adult 18+) Stat Partial Thromboplastin Time Stat Prothrombin Time INR Stat Thyroid Stimulating Hormone Stat Troponin & CK Cardiac Panel Stat 07/30/20 01:25 Urine Drug Screen, Rapid Stat 07/30/20 01:27 CT angio chest PE protocol Stat 07/30/20 03:10 Basic Metabolic Panel Stat Troponin I Stat Discontinued Medications Doxycycline Hyclate (Vibramycin) 100 mg PO NOW ONE Stop: 07/30/20 04:08 Sodium Chloride (Normal Saline 0.9%) 1,000 mls @ 1,000 mls/hr IV BOLUS ONE Stop: 07/30/20 00:59 Last Infusion: 07/30/20 01:08 Dose: 0 mls/hr Documented by: Admin: 07/30/20 00:12 Dose: 1,000 mls/hr Documented by: JASON Lactated Ringer's (Lactated Ringers) 1,000 mls @ 1,000 mls/hr IV BOLUS ONE Stop: 07/30/20 01:54 Last Infusion: 07/30/20 03:12 Dose: 0 mls/hr Documented by: Admin: 07/30/20 01:07 Dose: 1,000 mls/hr Documented by: JASON Vital Signs Vital signs: Vital Signs - 8 hr 07/30/20 00:00 07/30/20 00:51 07/30/20 01:00 Temperature 97.9 F Pulse Rate 130 H 115 H 121 H Respiratory Rate 24 17 22 Blood Pressure 169/94 H Pulse Oximetry 96 96 96 07/30/20 01:12 07/30/20 01:30 Temperature Pulse Rate 127 H 141 H Respiratory Rate 37 H 31 H Blood Pressure 150/82 H 148/111 H Pulse Oximetry 96 96 MDM - Chest Pain Lab Data Result diagrams: 07/30/20 00:05 07/30/20 03:10 Labs: Lab Results 07/30/20 07/30/20 07/30/20 Range/Units 00:05 00:05 00:05 WBC 18.5 H (4.5-11.0) X10^3/uL RBC 4.85 (4.0-5.2) X10^6/uL Hgb 14.3 (12.0-16.0) g/dL Hct 42.5 (36-46) % MCV 87.7 (80-100) fL MCH 29.6 (26-34) PG MCHC 33.7 (30-36) % RDW 15.0 H (11.6-14.8) % Plt Count 355 (150-400) X10^3/uL Neut % (Auto) 65.7 (50-75) % Lymph % (Auto) 24.2 L (25-40) % [place] % (Auto) 8.0 (3-14) % Eos % (Auto) 0.7 L (2-4) % Baso % (Auto) 1.4 (0-2) % Neut # (Auto) 58437 H (3306-2216) /uL Lymph # (Auto) 4500 (4147-9410) /uL [place] # (Auto) 1500 H (0-900) /uL Eos # (Auto) 100 (0-450) /uL Baso # (Auto) 300 H (0-100) /uL PT 11.4 (10.1-12.7) SECONDS INR 1.0 (0.9-1.3) APTT 32 (26.4-36.2) SECONDS D-Dimer 207 (<230) ng/mL Sodium (137-145) mmol/L Potassium (3.4-5.1) mmol/L Chloride (98-107) mmol/L Carbon Dioxide (22-32) mmol/L BUN (7-17) mg/dL Creatinine (0.52-1.04) mg/dL Estimated GFR (>60) mL/min BUN/Creatinine Ratio (6-22) Glucose (70-100) mg/dL Calcium (8.4-10.2) mg/dL Magnesium (1.6-2.3) mg/dL Total Bilirubin (0.2-1.3) mg/dL AST (14-36) IU/L ALT (<35) IU/L Alkaline Phosphatase (38-126) U/L Total Creatine Kinase (30-135) U/L CK-MB (CK-2) (<2.37) ng/mL CK-MB (CK-2) Rel Index (1.5-5.0) % Troponin I (0.01-0.034) ng/mL NT-Pro-B Natriuret Pep (<125) pg/mL Total Protein (6.3-8.2) g/dL Albumin (3.5-5.0) g/dL Globulin (1.7-4.1) g/dL Albumin/Globulin Ratio (1.0-2.8) TSH (0.47-4.68) uIU/mL U Opiates 300ng/mL cut (Negative) Ur Oxycodone Screen (Negative) Urine Methadone Screen (Negative) Ur Barbiturates Screen (Negative) U Tricyclic Antidepress (Negative) Ur Phencyclidine Scrn (Negative) Ur Amphetamines Screen (Negative) U Methamphetamines Scrn (Negative) Ur MDMA Scrn (Ecstasy) (Negative) U Benzodiazepines Scrn (Negative) Urine Cocaine Screen (Negative) U Marijuana (THC) Screen (Negative) COVID-19 PCR (Negative) 07/30/20 07/30/20 07/30/20 Range/Units 00:05 00:05 01:25 WBC (4.5-11.0) X10^3/uL RBC (4.0-5.2) X10^6/uL Hgb (12.0-16.0) g/dL Hct (36-46) % MCV (80-100) fL MCH (26-34) PG MCHC (30-36) % RDW (11.6-14.8) % Plt Count (150-400) X10^3/uL Neut % (Auto) (50-75) % Lymph % (Auto) (25-40) % [place] % (Auto) (3-14) % Eos % (Auto) (2-4) % Baso % (Auto) (0-2) % Neut # (Auto) (6163-9001) /uL Lymph # (Auto) (6463-7782) /uL [place] # (Auto) (0-900) /uL Eos # (Auto) (0-450) /uL Baso # (Auto) (0-100) /uL PT (10.1-12.7) SECONDS INR (0.9-1.3) APTT (26.4-36.2) SECONDS D-Dimer (<230) ng/mL Sodium 140 (137-145) mmol/L Potassium 3.8 (3.4-5.1) mmol/L Chloride 109 H (98-107) mmol/L Carbon Dioxide 19 L (22-32) mmol/L BUN 6 L (7-17) mg/dL Creatinine 0.60 (0.52-1.04) mg/dL Estimated GFR > 60.0 (>60) mL/min BUN/Creatinine Ratio 10.0 (6-22) Glucose 237 H (70-100) mg/dL Calcium 9.6 (8.4-10.2) mg/dL Magnesium 2.0 (1.6-2.3) mg/dL Total Bilirubin 0.4 (0.2-1.3) mg/dL AST 34 (14-36) IU/L ALT 31 (<35) IU/L Alkaline Phosphatase 109 (38-126) U/L Total Creatine Kinase 173 H (30-135) U/L CK-MB (CK-2) 1.44 (<2.37) ng/mL CK-MB (CK-2) Rel Index 0.8 L (1.5-5.0) % Troponin I < 0.012 (0.01-0.034) ng/mL NT-Pro-B Natriuret Pep 44 (<125) pg/mL Total Protein 8.4 H (6.3-8.2) g/dL Albumin 4.6 (3.5-5.0) g/dL Globulin 3.8 (1.7-4.1) g/dL Albumin/Globulin Ratio 1.2 (1.0-2.8) TSH 1.51 (0.47-4.68) uIU/mL U Opiates 300ng/mL cut Negative (Negative) Ur Oxycodone Screen Negative (Negative) Urine Methadone Screen Negative (Negative) Ur Barbiturates Screen Negative (Negative) U Tricyclic Antidepress Negative (Negative) Ur Phencyclidine Scrn Negative (Negative) Ur Amphetamines Screen Negative (Negative) U Methamphetamines Scrn Negative (Negative) Ur MDMA Scrn (Ecstasy) Negative (Negative) U Benzodiazepines Scrn Negative (Negative) Urine Cocaine Screen Negative (Negative) U Marijuana (THC) Screen Positive H (Negative) COVID-19 PCR (Negative) 07/30/20 07/30/20 Range/Units 02:30 03:10 WBC (4.5-11.0) X10^3/uL RBC (4.0-5.2) X10^6/uL Hgb (12.0-16.0) g/dL Hct (36-46) % MCV (80-100) fL MCH (26-34) PG MCHC (30-36) % RDW (11.6-14.8) % Plt Count (150-400) X10^3/uL Neut % (Auto) (50-75) % Lymph % (Auto) (25-40) % [place] % (Auto) (3-14) % Eos % (Auto) (2-4) % Baso % (Auto) (0-2) % Neut # (Auto) (0212-4059) /uL Lymph # (Auto) (9130-0596) /uL [place] # (Auto) (0-900) /uL Eos # (Auto) (0-450) /uL Baso # (Auto) (0-100) /uL PT (10.1-12.7) SECONDS INR (0.9-1.3) APTT (26.4-36.2) SECONDS D-Dimer (<230) ng/mL Sodium 137 (137-145) mmol/L Potassium 4.0 (3.4-5.1) mmol/L Chloride 107 (98-107) mmol/L Carbon Dioxide 21 L (22-32) mmol/L BUN 4 L (7-17) mg/dL Creatinine 0.52 (0.52-1.04) mg/dL Estimated GFR > 60.0 (>60) mL/min BUN/Creatinine Ratio 7.7 (6-22) Glucose 192 H (70-100) mg/dL Calcium 8.6 (8.4-10.2) mg/dL Magnesium (1.6-2.3) mg/dL Total Bilirubin (0.2-1.3) mg/dL AST (14-36) IU/L ALT (<35) IU/L Alkaline Phosphatase (38-126) U/L Total Creatine Kinase (30-135) U/L CK-MB (CK-2) (<2.37) ng/mL CK-MB (CK-2) Rel Index (1.5-5.0) % Troponin I < 0.012 (0.01-0.034) ng/mL NT-Pro-B Natriuret Pep (<125) pg/mL Total Protein (6.3-8.2) g/dL Albumin (3.5-5.0) g/dL Globulin (1.7-4.1) g/dL Albumin/Globulin Ratio (1.0-2.8) TSH (0.47-4.68) uIU/mL U Opiates 300ng/mL cut (Negative) Ur Oxycodone Screen (Negative) Urine Methadone Screen (Negative) Ur Barbiturates Screen (Negative) U Tricyclic Antidepress (Negative) Ur Phencyclidine Scrn (Negative) Ur Amphetamines Screen (Negative) U Methamphetamines Scrn (Negative) Ur MDMA Scrn (Ecstasy) (Negative) U Benzodiazepines Scrn (Negative) Urine Cocaine Screen (Negative) U Marijuana (THC) Screen (Negative) COVID-19 PCR Negative (Negative) Imaging Data CT scan - chest: Radiologist's Impression: Mild patchy bilateral small ground-glass densities may represent atypical pneumonia. No PE ECG Data Attestation: I personally reviewed and interpreted this ECG as follows: Prior ECG tracings: available for review Interpretation: Sinus tachycardia, rate 133, occasional PVCs. No ST segmental elevation or depression MDM Narrative Medical decision making narrative: Multiple etiologies for patient's symptoms considered including: [Coronavirus versus pulmonary embolism versus myocardial infarction versus pneumonia versus anxiety versus other] Patient's symptoms improved over duration of stay with above-stated therapies. Findings and discharge diagnosis discussed with patient/family followed by verbalization of understanding Return precautions discussed with patient/family whom verbalize understanding. Discharge Plan Departure Patient Disposition: Home Clinical Impression: Atypical pneumonia Instructions: DI for Atypical Pneumonia Activity Restrictions/Additional Instructions: *You have been diagnosed with [atypical pneumonia. No evidence of a blood clot, heart attack and your coronavirus swab was negative] *What to do: *Take medications as directed *Follow up with your primary care provider in 2-3 days, call for an appointment. Let them know you were seen in the Emergency Department and that we ask that you be seen in follow up *Return to ER if you should have any new, worsening or concerning symptoms Prescriptions: New doxycycline hyclate 100 mg tablet 100 mg PO BID Qty: 20 RF: 0 fluconazole 150 mg tablet 150 mg PO Q3D Qty: 2 RF: 0 No Action nitroglycerin [Nitrostat] 0.4 MG tablet, sublingual 0.4 mg Sublingual Q5MP PRNQty: 20 RF: 0 tizanidine 4 mg tablet 2 mg PO DAILY PRN (Reason: muscle spasm) RF: 0 ondansetron HCl 8 mg tablet 1 tab PO TID PRN (Reason: Nausea And Vomiting) RF: 0 isosorbide mononitrate 30 mg tablet extended release 24 hr 30 mg PO DAILY RF: 0 gabapentin 400 mg capsule 2 cap PO TID RF: 0 carvedilol 3.125 mg tablet 3.125 mg PO BID RF: 0 trazodone 100 mg tablet 100 mg PO BEDTIME PRN (Reason: insomnia or depression) RF: 0 Flovent HFA 44 mcg/actuation HFA aerosol inhaler 2 puff Inhalation BID RF: 0 omeprazole 20 mg capsule,delayed release(DR/EC) 1 cap PO BID RF: 0 alprazolam 2 mg tablet 2 mg PO QAM PRN (Reason: Anxiety) RF: 0 fluticasone propionate 50 mcg/actuation spray,suspension 1 spray Intranasal PRN PRN (Reason: Allergy Symptoms) RF: 0 loperamide 2 mg capsule 2 mg PO BID PRN (Reason: Diarrhea) RF: 0 Victoza 2-Leroy 0.6 mg/0.1 mL (18 mg/3 mL) Pen Injector 1.8 mg subcut DAILY RF: 0 atorvastatin 20 mg tablet 20 mg PO DAILY RF: 0 fluoxetine 40 mg capsule 80 mg PO DAILY RF: 0 hydroxyzine pamoate 50 mg capsule 50 mg PO DAILY PRN (Reason: itching and hives) RF: 0 zolpidem 5 mg tablet 5 mg PO BEDTIME PRN (Reason: Sleep) RF: 0 polyethylene glycol 3350 17 gram Powder In Packet 17 g PO DAILY RF: 0 aspirin 325 mg Tablet 325 mg PO DAILY RF: 0 ibuprofen 800 mg Tablet 800 mg PO Q6H PRN (Reason: pain and inflammation) RF: 0 meloxicam 15 mg Tablet 15 mg PO DAILY PRN (Reason: pain and inflammation) RF: 0 sucralfate 1 gram tablet 1 g PO QID RF: 0 valacyclovir 500 mg Tablet 1,000 mg PO Q8H RF: 0 alprazolam 2 mg tablet 1 mg PO QPM PRN (Reason: Anxiety) RF: 0 lisinopril 2.5 mg tablet 2.5 mg PO DAILY RF: 0 hydrocodone-acetaminophen 5-325 mg tablet 1 tab PO Q4-6H PRN (Reason: pain) Qty: 10 RF: 0 Referrals: Christ Tipton MD [Primary Care Provider] -
[2020-07-30] VITALS: BP 169/94; PULSE 130; RESP 24; TEMP 36.6; O2SAT 96
--- NOTE | 2020-07-30 00:01 | DI.RAD.S_ITS ---
PROCEDURE: XR CHEST 1V INDICATIONS: chest pain, SOB TECHNIQUE: One view of the chest was acquired. COMPARISON: [facility], CR, XR CHEST 1V, 09/18/2018, 17:15. FINDINGS: Surgical changes and devices: None. Lungs and pleura: Lungs are clear. No pleural effusions or pneumothorax. Mediastinum: Mediastinal contours appear normal. Heart size is normal. Bones and chest wall: No suspicious bony lesions. Overlying soft tissues appear unremarkable. IMPRESSION: No acute cardiopulmonary disease process. Dictated by: Amy Gomez MD, PhD on 07/30/2020 at 8:27 Approved by: Amy Gomez MD, PhD on 07/30/2020 at 8:27
[2020-07-30] MEDS: SODIUM CHLORIDE 0.9% 1,000 ML 1000 ML IV (00:12)
[2020-07-30 00:17] LABS: Add Manual Diff / Slide Review NO; Basophils Absolute Auto 300 /uL (0-100); Basophils Percent Auto 1.4 % (0-2); Eosinophils Absolute Auto 100 /uL (0-450); Eosinophils Percent Auto 0.7 % (2-4); Hematocrit 42.5 % (36-46); Hemoglobin 14.3 g/dL (12.0-16.0); Lymphocytes Absolute Auto 4500 /uL (1100-4500); Lymphocytes Percent Auto 24.2 % (25-40); Mean Corpuscular HGB Conc 33.7 % (30-36); Mean Corpuscular Hemoglobin 29.6 PG (26-34); Mean Corpuscular Volume 87.7 fL (80-100); Monocytes Absolute Auto 1500 /uL (0-900); Neutrophils Absolute Auto 12200 /uL (1500-7000); Neutrophils Percent Auto 65.7 % (50-75); Platelet Count 355 X10^3/uL (150-400); Prothrombin Time 11.4 SECONDS (10.1-12.7); Red Blood Cell Count 4.85 X10^6/uL (4.0-5.2); White Blood Cell Count 18.5 X10^3/uL (4.5-11.0)
[2020-07-30 00:20] LABS: PTT Partial Thromboplastin Tim 32 SECONDS (26.4-36.2)
[2020-07-30 00:23] LABS: Alanine Aminotransferase 31 IU/L (<35); Albumin 4.6 g/dL (3.5-5.0); Albumin Globulin Ratio 1.2 (1.0-2.8); Alkaline Phosphatase 109 U/L (38-126); Aspartate Aminotransferase 34 IU/L (14-36); Bilirubin Total 0.4 mg/dL (0.2-1.3); Blood Urea Nitrogen 6 mg/dL (7-17); Calcium 9.6 mg/dL (8.4-10.2); Carbon Dioxide 19 mmol/L (22-32); Chloride 109 mmol/L (98-107); Creatine Kinase 173 U/L (30-135); Estimated Glomerular Filt Rate > 60.0 mL/min (>60); Globulin 3.8 g/dL (1.7-4.1); Glucose 237 mg/dL (70-100); Potassium 3.8 mmol/L (3.4-5.1); Sodium 140 mmol/L (137-145); Total Protein 8.4 g/dL (6.3-8.2)
[2020-07-30 00:29] LABS: D Dimer 207 ng/mL (<230)
[2020-07-30 00:35] LABS: NT-proBNP (BNP-Adult 18+) 44 pg/mL (<125); Troponin I < 0.012 ng/mL (0.01-0.034)
[2020-07-30 00:38] LABS: CKMB % Relative Index 0.8 % (1.5-5.0); Creatine Kinase MB 1.44 ng/mL (<2.37); HEMOLYSIS 26 (0-50)
[2020-07-30 00:51] VITALS: PULSE 115; RESP 17; O2SAT 96
[2020-07-30 01:00] VITALS: PULSE 121; RESP 22; O2SAT 96
[2020-07-30] MEDS: LACTATED RINGERS 1,000 ML 1000 ML IV (01:07)
[2020-07-30 01:12] VITALS: BP 150/82; PULSE 127; RESP 37; O2SAT 96
--- NOTE | 2020-07-30 01:27 | DI.CT.S_ITS ---
PROCEDURE: CT ANGIO CHEST PE PROTOCOL INDICATIONS: chest pain, tachycardia, SOB TECHNIQUE: After the administration of intravenous contrast, 2 mm thick sections acquired from the pulmonary apices to the posterior costophrenic angles. 3-dimensional maximum intensity projection (MIP) coronal and sagittal reformats were then acquired through the thorax. For radiation dose reduction, the following was used: automated exposure control, adjustment of mA and/or kV according to patient size. COMPARISON: [facility], CT, CT ANGIO CHEST ABDOMEN, 05/25/2018, 13:58. [facility], CT, CT ANGIO CHEST PE PROTOCOL, 06/15/2018, 20:32. FINDINGS: Image quality: Excellent. Pulmonary arteries: Pulmonary arteries are normal in size, and demonstrate no intraluminal filling defects to suggest central pulmonary embolism. Lungs and pleura: Extensive small focal areas of very subtle patchy ground-glass opacities bilaterally, predominantly in the lung bases. These are present on the study of 05/25/18. No pleural effusions or pneumothorax. Central and peripheral airways are patent. Mediastinum: Heart size is normal, without pericardial effusion. Mildly prominent bilateral hilar lymph nodes. These are relatively stable compared to the previous study. Thoracic aorta is normal in caliber and enhancement. Esophagus is normal in caliber, without hiatal hernia. Bones and chest wall: No suspicious bony lesions. Ribs and thoracic spine appear intact throughout. Thyroid gland is unremarkable. No axillary or supraclavicular adenopathy. Abdomen: Stable right lobe liver cyst versus hemangioma, measuring 2.4 cm on the most inferior image. IMPRESSION: 1. No evidence of pulmonary emboli. 2. Patchy ground-glass opacities, with a bibasilar predominance, likely representing an ongoing inflammatory process. 3. Stable mediastinal lymph node prominence, likely reactive. Comment: Final report is concordant with preliminary interpretation provided by [facility]. Dictated by: Ghassan Morales M.D. on 07/30/2020 at 7:59 Approved by: Ghassan Morales M.D. on 07/30/2020 at 8:06
[2020-07-30 01:30] VITALS: BP 148/111; PULSE 141; RESP 31; O2SAT 96
[2020-07-30 01:40] LABS: Ur Creatinine Normal (Normal); Ur Specific Gravity Normal (Normal); Urine Tetrahydrocannabinol Positive (Negative); Urine pH Normal (Normal)
[2020-07-30 01:41] LABS: UR Morphine/Opiate cutoff 300 Negative (Negative); Urine Amphetamines Negative (Negative); Urine Barbiturates Negative (Negative); Urine Benzodiazepines Negative (Negative); Urine Cocaine Negative (Negative); Urine MDMA Negative (Negative); Urine Methadone Negative (Negative); Urine Methamphetamines Negative (Negative); Urine Oxycodone Negative (Negative); Urine Phencyclidine Negative (Negative); Urine Tricyclic Antidepressant Negative (Negative)
[2020-07-30 02:02] LABS: Thyroid Stimulating Hormone 1.51 uIU/mL (0.47-4.68)
[2020-07-30 03:27] LABS: BUN Creatinine Ratio 7.7 (6-22); Blood Urea Nitrogen 4 mg/dL (7-17); Calcium 8.6 mg/dL (8.4-10.2); Carbon Dioxide 21 mmol/L (22-32); Chloride 107 mmol/L (98-107); Estimated Glomerular Filt Rate > 60.0 mL/min (>60); Glucose 192 mg/dL (70-100); HEMOLYSIS < 15 (0-50); Sodium 137 mmol/L (137-145)
[2020-07-30 03:31] LABS: COVID19 -Nasal RAPID Negative (Negative)
[2020-07-30 03:39] LABS: Troponin I < 0.012 ng/mL (0.01-0.034)
[2020-07-30 04:36] VITALS: BP 149/99; PULSE 98; RESP 20; O2SAT 96
[2020-07-30] MEDS: DOXYCYCLINE HYCLATE 100 MG TABLET PO (04:42)
== END 2020-07-30 04:38 | disposition home or self-care (01) ==
PROVIDERS: Emergency Provider Emergency Medicine; PCP Family Medicine
DX: J18.9 Pneumonia, unspecified organism (principal); R07.9 Chest pain, unspecified; R06.02 Shortness of breath
CPT/HCPCS: 36415; 71045; 71275; 80048; 80053; 80305; 82550; 82553; 83735; 83880; 84443; 84484; 85025; 85379; 85610; 85730; 87635; 93005; 96360; 96361; 99285; Q9967

== ENCOUNTER → 2020-08-20 10:56 | Outpatient (CLI) | payer MEDICARE, MEDICAID, SELFPAY ==
[2020-08-20 13:37] LABS: Adenovirus F 40/41 Not Detected (Not Detect); Astrovirus Not Detected (Not Detect); Campylobacter Not Detected (Not Detect); Clostridium difficile toxin AB Not Detected (Not Detect); Cryptosporidium Not Detected (Not Detect); Cyclospora cayetanensis Not Detected (Not Detect); Entamoeba histolytica Not Detected (Not Detect); Enteroaggregative E.coli Not Detected (Not Detect); Enteropathogenic E.coli Not Detected (Not Detect); Enterotoxigenic E.coli It/st Not Detected (Not Detect); Giardia lamblia Not Detected (Not Detect); Norovirus GI/GII Not Detected (Not Detect); Plesiomonsa shigelloides Not Detected (Not Detect); Rotavirus A Not Detected (Not Detect); Salmonella Not Detected (Not Detect); Sapovirus Not Detected (Not Detect); Shiga-like toxin-prod E.coli Not Detected (Not Detect); Shigella/Enteroinvasive E.coli Not Detected (Not Detect); Vibrio Not Detected (Not Detect); Vibrio cholerae Not Detected (Not Detect); Yersinia enterocolitica Not Detected (Not Detect)
== END ==
PROVIDERS: PCP Physician Assistant; Referring Provider Specialist; Visit Provider Specialist
DX: R19.7 Diarrhea, unspecified (principal)
CPT/HCPCS: 87507

== ENCOUNTER → 2020-08-21 13:56 | Outpatient (CLI) | payer MEDICARE, MEDICAID, SELFPAY ==
[2020-08-23 09:16] LABS: COVID19 Sendout Not Detected (Not Detect)
== END ==
PROVIDERS: PCP Physician Assistant; Referring Provider Nurse Practitioner; Visit Provider Nurse Practitioner
DX: Z11.59 Encounter for screening for other viral diseases (principal)
CPT/HCPCS: 87635

== ENCOUNTER 2020-08-24 07:29 | Day surgery (SDC) | payer MEDICARE, MEDICAID, SELFPAY ==
--- NOTE | 2020-08-24 | PATH_ITS ---
[facility] Accession Number: [id number] . 01 Material submitted: . PART A: gastrointestinal site - PYLORIC CHANNEL PART B: uvula - BASE OF UVULA PART C: colon - ASCENDING COLON PART D: colon - COLON AT 80CM PART E: colon - COLON POLYP AT 30CM PART F: rectum - RECTAL POLYP . 01 Clinical history: . C: ASCENDING COLON X2 . 02 Diagnosis: A. Pyloric Channel: Portions of gastric antral mucosa with mild chronic inflammation. Negative for Helicobacter organisms by immunohistochemistry. There is focal intestinal metaplasia present. Negative for dysplasia and malignancy. . B. Base of Uvula: Squamous epitheluim with no diagnostic abnormality. . C. Ascending Colon: Portions of tubular adenoma x2. . D. Colon at 80 cm: Portions of tubular adeoma x3. . E. Colon Polyp at 30 cm: Superficial portions of colorectal mucosa x2 with patchy hyperplastic mucosal features. Additional levels through the block are noncontributory. . F. Rectal Polyp: Hyperplastic polyp. MRV 08/30/2020 1356 Local . 02 Electronically signed: . Ama Fleming MD, Pathologist NPI- [id number] . 01 Gross description: . Part A: PYLORIC CHANNEL: Received in formalin are 3 fragment(s) of lan, soft tissue measuring 0.4 x 0.3 x 0.1 cm to 0.2 x 0.2 x 0.2 cm submitted entirely in 1 cassette(s) Part B: BASE OF UVULA: Received in formalin are 2 fragment(s) of lan, soft tissue measuring 0.3 x 0.2 x 0.1 cm to 0.2 x 0.2 x 0.1 cm submitted entirely in 1 cassette(s) Part C: ASCENDING COLON: Received in formalin are 2 fragment(s) of lan, soft tissue measuring 0.4 x 0.4 x 0.1 cm to 0.3 x 0.2 x 0.2 cm submitted entirely in 1 cassette(s) Part D: COLON AT 80CM: Received in formalin are 3 fragment(s) of lan, soft tissue measuring 0.4 x 0.3 x 0.3 cm to 0.2 x 0.2 x 0.1 cm submitted entirely in 1 cassette(s) Part E: COLON POLYP AT 30CM: Received in formalin are 2 fragment(s) of lan, soft tissue measuring 0.5 x 0.5 x 0.2 cm to 0.4 x 0.3 x 0.2 cm submitted entirely in 1 cassette(s) Part F: RECTAL POLYP: Received in formalin is 1 fragment(s) of lan, soft tissue measuring 0.5 x 0.3 x 0.2 cm submitted entirely in 1 cassette(s) /QBJ 08/25/2020 0902 Local . 02 Microscopic: . An immunohistochemical stain was performed to evaluate for Helicobacter organisms and is negative. The control stain showed appropriate reactivity. . * This test was developed and its performance characteristics determined by [facility]. It has not been cleared or approved by the U.S. Food and Drug Administration. The FDA has determined that such clearance or approval is not necessary. This test is used for clinical purposes. It should not be regarded as investigational or for research. . 02 Pathologist provided ICD-10: K29.70, K63.5, R11.2, R19.7 . 02 CPT . 013281, 265031, 373000, 442550, 653762, 378611, R20647 Performed at: 01 [facility] [address] [place] [address], [place], [place] [id number] MD Vikram Hadley MD Phone: [phone] Performed at: 02 [facility] [address] [place], [place] [id number] MD Lexis Garcia MD Phone: [phone]
[2020-08-24 07:51] VITALS: BP 128/78; PULSE 93; RESP 18; TEMP 36.8; O2SAT 98; BMI 32.4
[2020-08-24] MEDS: LACTATED RINGERS 1,000 ML 200 ML IV (08:00)
--- NOTE | 2020-08-24 08:15 | PM.PREOP ---
Pre-operative Note COVID-19 COVID-19 status: Negative Result date/Date tested (Pos, Neg/Pending): 08/21/20 Interval Note History & Physical reviewed/Exam performed by Physician: Yes Changes to H&P: No ASA Class (for procedural sedation): III
[2020-08-24] MEDS: INSULIN REGULAR 100 UNIT/ML 3 ML VIAL IV (08:24)
--- NOTE | 2020-08-24 08:26 | SUR.PREOP ---
Insulin given as ordered, s/s of hypoglycemia discussed.
[2020-08-24] MEDS: fentaNYL 250 MCG/5 ML INJ IV (08:39)
[2020-08-24] MEDS: ONDANSETRON 4 MG/2 ML INJ IV ×2 (08:40→09:43)
[2020-08-24] MEDS: LIDOCAINE 4% SOLN 50 ML 20 ML TOP (08:41)
[2020-08-24] MEDS: MIDAZOLAM 5 MG/5 ML VIAL IV ×2 (08:43→08:56)
--- NOTE | 2020-08-24 09:27 | PM.OP.ENDO ---
Operative Date/Time/Diagnoses Date of procedure: 08/24/20 Time of procedure: 09:27 Pre-op diagnosis: History of polyps. Chronic nausea. Post-op diagnosis: same (Superficial pyloric channel ulcer. Biopsies taken. A few small polyps in her colon. Many may not be truly adenomatous.) Procedure & Clinicians Study performed: EGD with cold biopsy. Colonoscopy with cold biopsy. Same procedure as scheduled: Yes Indications: Try to determine cause of persistent nausea. Multiples polyps on last colonoscopy. Recommendation was made for a 2 year follow-up. Surgeon: Andrew Queen Procedure Notes SCOAP/Timeout: Performed Procedure in detail: The patient had topical anesthetic applied to oropharynx. She was placed in left lateral decubitus position and underwent IV sedation directed by the surgeon consisting of fentanyl and Versed. A bite block was inserted and the scope was advanced through it into the esophagus. The esophagus was unremarkable. GE junction was noted at 40 cm from the incisors.. The stomach insufflated well. There were no lesions seen in the body, antrum or at the incisura. The pyloric channel was slightly askew and mildly narrowed. There appeared to be inflammation in the pyloric channel and a very superficial ulcer was seen.. The duodenum was unremarkable to the 4th part. The scope was brought back into the stomach and retroflexed. The proximal stomach was remarkable for a hiatal hernia not seen from above. No other lesions were seen. The scope was straightened and biopsies were taken of the pyloric channel region.. The scope was straightened and brought out through the esophagus again. No lesions were seen in the esophagus. The patient's uvula had been resected and the base looked a little unusual on scope visualization. Therefore it was biopsied. The scope was removed and the patient tolerated the procedure well. I did not see any lesions above or at her cords. The patient was repositioned. The patient underwent additional cautious IV sedation directed by the surgeon consisting of fentanyl and Versed. Digital exam was unremarkable. The scope was inserted and advanced through the rectum into the sigmoid, descending, transverse, and ascending colon. No lesions were seen.. The cecum was reached identified by the ileocecal valve and the appendiceal opening. The scope was gradually brought out. Tiny Polyps were found at the ascending colon, 80 cm from the anal verge, 30 cm from the anal verge and 1 in the rectum. These may not all be adenomatous. The scope ultimately was retroflexed in the rectum. The appearance was remarkable for scarring on old hemorrhoidal disease.. The scope was removed and the patient tolerated the procedure well. The prep was adequate. Scope withdrawal time: 9 minutes(13 total) Sedation minutes: 41 Findings: polyp (Small lesions. May not be adenomatous.) and other findings (Superficial pyloric channel ulcer.) Specimen(s): other (Biopsy of the pyloric channel, of the uvula stump, and polyps in the colon.) Complications: none Post-procedure Recommendations: Colonscopy in 5 years and Continue medication(s) (Pantoprazole) Follow up: weeks (2) Disposition: PACU
[2020-08-24 09:29] VITALS: BP 103/66; PULSE 81; RESP 20; TEMP 36.3; O2SAT 94
[2020-08-24 09:34] VITALS: BP 92/62; PULSE 86; RESP 20; O2SAT 96
[2020-08-24 09:39] VITALS: BP 95/65; PULSE 84; RESP 18; O2SAT 97
[2020-08-24 09:50] VITALS: BP 99/69; PULSE 80; RESP 20; TEMP 36.3; O2SAT 97
[2020-08-24 10:05] VITALS: BP 99/75; PULSE 80; RESP 18; O2SAT 98
== END 2020-08-24 10:11 | disposition home or self-care (01) ==
PROVIDERS: PCP Physician Assistant; Referring Provider Physician Assistant; Visit Provider Specialist
PROC: 0DJ08ZZ Inspection of Upper Intestinal Tract, Via Natural or Artificial Opening Endoscopic (ICD-10-PCS; CPT 43235; principal; 2020-08-24 08:30)
PROC: 0DJD8ZZ Inspection of Lower Intestinal Tract, Via Natural or Artificial Opening Endoscopic (ICD-10-PCS; CPT 45378; 2020-08-24 08:30)
DX: K29.50 Unspecified chronic gastritis without bleeding (principal); E11.9 Type 2 diabetes mellitus without complications; J44.9 Chronic obstructive pulmonary disease, unspecified; I10 Essential (primary) hypertension; Z86.73 Personal history of transient ischemic attack (TIA), and cerebral infarction without residual deficits; I25.2 Old myocardial infarction; D12.2 Benign neoplasm of ascending colon; D12.6 Benign neoplasm of colon, unspecified
CPT/HCPCS: 45380; 43239; 99152; 99153; J2250; J2405; J3010

== ENCOUNTER → 2020-09-13 12:28 | Outpatient (CLI) | payer MEDICARE, MEDICAID, SELFPAY ==
--- NOTE | 2020-09-13 | DI.CT.S_ITS ---
PROCEDURE: CT CHEST W CON INDICATIONS: Localized enlarged lymph nodes TECHNIQUE: After the administration of intravenous contrast, 5 mm thick sections acquired from the pulmonary apices to the posterior costophrenic angles. 1 mm axial lung, 5 mm thick coronal and sagittal reformats and 7 mm axial MIP were acquired. For radiation dose reduction, the following was used: automated exposure control, adjustment of mA and/or kV according to patient size. COMPARISON: [facility], CT, CT ANGIO CHEST PE PROTOCOL, 07/30/2020, 1:30. FINDINGS: Image quality: Excellent. Lungs and pleura: No acute air space opacities. No pleural effusions or pneumothorax. Central and peripheral airways are patent and normal in caliber. Mediastinum: Heart size is normal. No pericardial effusion. Currently there is no mediastinal or hilar adenopathy by size criteria. Thoracic aorta and central pulmonary arteries are normal in size. Esophagus is normal in caliber. No hiatal hernia. Bones and chest wall: No suspicious bony lesions. No vertebral body compression fractures. No axillary or supraclavicular adenopathy by size criteria. Thyroid gland appears normal where well seen . Abdomen: Visualized upper abdominal solid organs appear normal. Upper abdominal bowel loops are normal in caliber. Water density hepatic cyst posteriorly on the right IMPRESSION: Resolution of mildly prominent lymph nodes at the mediastinum and each hilum. This is consistent with previously present mild reactive adenopathy. No follow-up recommended. Dictated by: You Pickard M.D. on 09/13/2020 at 17:20 Approved by: You Pickard M.D. on 09/13/2020 at 17:22
== END ==
PROVIDERS: PCP Physician Assistant; Referring Provider Physician Assistant; Visit Provider Physician Assistant
DX: R59.0 Localized enlarged lymph nodes (principal)
CPT/HCPCS: 71260; Q9967

== ENCOUNTER → 2021-03-25 08:26 | Outpatient (CLI) | payer MEDICARE, MEDICAID, SELFPAY ==
--- NOTE | 2021-03-25 | DI.NM.S_ITS ---
PROCEDURE: [place] GASTRIC EMPTYING STUDY RADIOPHARMACEUTICAL: 1 mCi Tc-99m sulfur colloid in an egg sandwich. INDICATIONS: history of other diseases of the digestive system TECHNIQUE: A Tc-99m labeled sulfur colloid labeled egg sandwich or oatmeal was served to the patient. Anterior and posterior planar images of the abdomen were obtained at 0 minutes and 30 minutes, then at hourly intervals up to 4 hours. The patient was upright and ambulating during the interval. COMPARISON: [facility], [place], [place] GASTRIC EMPTYING STUDY, 06/01/2017, 9:06. FINDINGS: The stomach has normal size, morphology, and position. There is normal emptying of solid gastric contents from the stomach by visual inspection. No gastroesophageal reflux is visualized. The percentage of tracer retained at specific time points are as follows: Time point Percent gastric retention Normal range 30 minutes 93% 70% or more 1 hour 63% 30% to 90% 2 hours 40% 60% or less 3 hours 1% 30% or less 4 hours - 10% or less IMPRESSION: Normal gastric emptying study. Dictated by: Leah Salgado M.D. on 03/25/2021 at 12:45 Approved by: Leah Salgado M.D. on 03/25/2021 at 12:47
== END ==
PROVIDERS: PCP Physician Assistant; Referring Provider Internal Medicine Gastroenterology; Visit Provider Internal Medicine Gastroenterology
DX: R19.7 Diarrhea, unspecified (principal); R10.9 Unspecified abdominal pain; Z87.19 Personal history of other diseases of the digestive system
CPT/HCPCS: 78264; A9541

== ENCOUNTER → 2021-04-04 12:57 | Outpatient (CLI) | payer MEDICARE, MEDICAID, SELFPAY ==
[2021-04-04 15:34] LABS: COVID19 -Nasal RAPID Negative (Negative)
== END ==
PROVIDERS: PCP Physician Assistant; Visit Provider Student in an Organized Health Care Education/Training Program
DX: Z20.822 Contact with and (suspected) exposure to COVID-19 (principal)
CPT/HCPCS: 87635; C9803

== ENCOUNTER 2021-04-06 13:54 | Day surgery (SDC) | payer MEDICARE, MEDICAID, SELFPAY ==
--- NOTE | 2021-04-06 | PATH_ITS ---
[facility] Accession Number: [id number] . 01 Material submitted: . PART A: small bowel - SMALL BOWEL BIOPSY PART B: colon - RIGHT COLON BIOPSY PART C: colon - TRANSVERSE COLON POLYP PART D: colon - LEFT COLON BIOPSY PART E: rectum - RECTAL POLYP . 01 Clinical history: . A: R/O CELIAC B: R/O MICRO COLITIS D: R/O MICRO COLITIS . 02 Diagnosis: A. Small Bowel, Biopsy: Duodenal mucosa with no diagnostic abnormality. Negative for active inflammation, features of sprue, dysplasia, or malignancy. . B, D: Right Colon, Left Colon, Biopsies: Colonic mucosa with no diagnostic abnormality. Negative for active, chronic, and microscopic colitis. Negative for dysplasia and malignancy. . . C. Transverse Colon, Polyp, Biopsy: Tubular adenoma. . E. Rectum, Polyp, Biopsy: Tubular adenoma. [facility] 04/11/2021 1043 Local . 02 Electronically signed: . Lexis Garcia MD, Pathologist NPI- [id number] . 01 Gross description: . Part A: SMALL BOWEL BIOPSY: Received in formalin are multiple fragment(s) of lan, soft tissue measuring 0.1 x 0.1 x 0.1 cm to 0.3 x 0.2 x 0.2 cm submitted entirely in 1 cassette(s) Part B: RIGHT COLON BIOPSY: Received in formalin are multiple fragment(s) of lan, soft tissue measuring 0.1 x 0.1 x 0.1 cm to 0.2 x 0.2 x 0.2 cm submitted entirely in 1 cassette(s) Part C: TRANSVERSE COLON POLYP: Received in formalin are 2 fragment(s) of lan, soft tissue measuring 0.1 x 0.1 x 0.1 cm to 0.3 x 0.2 x 0.2 cm submitted entirely in 1 cassette(s) Part D: LEFT COLON BIOPSY: Received in formalin are multiple fragment(s) of lan, soft tissue measuring 0.1 x 0.1 x 0.1 cm to 0.3 x 0.2 x 0.2 cm submitted entirely in 1 cassette(s) Part E: RECTAL POLYP: Received in formalin are 2 fragment(s) of lan, soft tissue measuring 0.1 x 0.1 x 0.1 cm to 0.3 x 0.2 x 0.2 cm submitted entirely in 1 cassette(s) /[facility] 04/07/2021 2009 Local . 02 Pathologist provided ICD-10: D12.3, D12.8 . 02 CPT . 355889, 291677, 179197, 429384, 495314 Performed at: 01 [facility] [address] [id number] MD Vikram Hadley MD Phone: [phone] Performed at: [facility] [address] [place], [place] [id number] MD Lexis Garcia MD Phone: [phone]
--- NOTE | 2021-04-06 08:10 | PM.HP.1 ---
History of Present Illness History of Present Illness Date Patient Seen: 04/06/21 Chief complaint: SDC Narrative: 51-year-old female seen at our office on 03/03/2021 for multiple chronic GI complaints. Please refer to that office note for further details. She is here for further evaluation of prior history of pyloric channel ulcer and possible poor gastric emptying as well as chronic diarrhea Patient History Medical History (Updated 04/06/21 @ 14:10 by Gabriela Kauffman RN) Anxiety Arthritis Bowel and bladder incontinence Chest pain Chronic pain COPD (chronic obstructive pulmonary disease) Diabetes Endometriosis Epigastric pain Fibromyalgia GERD (gastroesophageal reflux disease) History of adenomatous polyp of colon History of TIA (transient ischemic attack) HTN (hypertension) Hyperlipidemia Obstructive sleep apnea on CPAP Pyloric channel ulcer Weight loss Surgical History (Updated 04/06/21 @ 14:11 by Gabriela Kauffman RN) History of appendectomy History of colonoscopy (~07/2020) History of esophagogastroduodenoscopy (EGD) (~07/2020) History of tonsillectomy Hx of hysterectomy Family & Social History Family History Grandfather Hypertension Heart disease Diabetes mellitus Grandmother Diabetes mellitus Hypertension Heart disease Mother Ovarian cancer Social History: household members none Tobacco & Substance use: Tobacco type cigarettes Smoking Status Current every day smoker alcohol intake current alcohol intake frequency a few times a week Substance Use Type marijuana Meds Home Medications and Allergies Home Medications Medication Instructions Recorded Confirmed Type nitroglycerin [Nitrostat] 0.4 mg SUBLINGUAL Q5MP PRN #20 tab 09/15/16 04/06/21 Rx Victoza 2-Leroy 1.8 mg SUBCUT DAILY 09/18/18 04/06/21 History loperamide 2 mg PO BID PRN 09/18/18 04/06/21 History atorvastatin 20 mg PO DAILY 01/10/19 04/06/21 History lisinopril 20 mg PO DAILY 01/10/19 04/06/21 History albuterol sulfate 90 mcg/actuation 1 inhalation INHALATION PRN PRN 08/11/20 04/06/21 History aerosol inhaler diphenhydramine HCl 25 mg capsule 25 mg PO BEDTIME 08/11/20 04/06/21 History melatonin 5 mg capsule 5 mg PO DAILY 08/11/20 04/06/21 History multivitamin 1 cap PO DAILY 08/11/20 04/06/21 History pantoprazole 20 mg tablet,delayed 20 mg PO DAILY 08/11/20 04/06/21 History release acetaminophen [Tylenol Extra 1,000 mg PO DAILY 08/24/20 04/06/21 History Strength] Carafate 1 tab PO QID 04/06/21 04/06/21 History cyclobenzaprine 10 mg PO BEDTIME 04/06/21 04/06/21 History Allergies Allergy/AdvReac Type Severity Reaction Status Date / Time adhesive [ADHESIVE] Allergy Intermediate RASH Verified 08/24/20 07:46 metformin [METFORMIN] AdvReac Intermediate VOMITING/DI Verified 08/24/20 07:46 ARRHEA codeine [CODEINE] AdvReac Mild VOMITING Verified 08/24/20 07:46 Exam Narrative Exam Narrative: General: Patient is well developed, not in apparent distress Cardiovascular: Regular rate and rhythm, no murmurs, rubs, or gallops; no evidence of edema; no palpable abdominal aortic aneurysm Gastrointestinal: Normoactive bowel sounds, soft, nontender, nondistended, no rebound tenderness, no hepatosplenomegaly, no evidence of hernia Assessment & Plan Assessment & Plan narrative: 51-year-old female with chronic GI complaints here for further evaluation of upper GI symptoms of chronic nausea and vomiting and longstanding diarrhea. Prior colonoscopy done showed multiple colon polyps. Regarding the procedure(s), the risks and potential complications, benefits, and alternatives (including not doing the procedure) were discussed with the patient. The risks include but are not limited to bleeding, splenic injury, infection, perforation which may require surgical intervention, missed lesions, and adverse reactions to sedative medicines. After a question and answer period, the patient agreed to proceed with the procedure(s) and gives informed consent.
[2021-04-06 14:23] VITALS: BP 127/88; PULSE 97; RESP 18; TEMP 36.5; O2SAT 97; BMI 32.4
[2021-04-06] MEDS: SODIUM CHLORIDE 0.9% 1,000 ML 70 ML IV (14:34)
--- NOTE | 2021-04-06 15:07 | P.OP.ENDO_ITS ---
Operative Date/Time/Diagnoses Date of procedure: 04/06/21 Procedure Notes Procedure in detail: Surgeon: Harvinder Garcia MD Procedure: Esophagogastroduodenoscopy with biopsies and colonoscopy with biopsies Preoperative diagnosis: Nausea vomiting, history of pyloric channel ulcer; chronic diarrhea; (normal gastric emptying study February 2021) Postoperative diagnosis: Gastric erythema; colon polyps x2 status post polypectomy; sigmoid diverticulosis; grade 1 internal hemorrhoids Medications: Monitored anesthesia care due to history of fibromyalgia and other comorbidities Preanesthesia Assessment An H and P was performed/updated and the Px?s ASA class is 3. The procedure was discussed in detail with the patient. The potential risks and complications including infection, bleeding, missed lesions, perforation, need for surgery in case of perforation, prolonged hospital stay, and were explained. A brief question and answer period was allotted and once all questions were answered, informed consent was obtained. The patient was brought back to the procedure room and placed on standard monitoring. The patient?s vital signs were monitored continuously throughout the entire procedure. Prior to starting, a timeout was performed to confirm the patient?s identity, allergies, medications, and procedure. Procedure in detail The patient was placed in left lateral decubitus position and a bite block was inserted. The tip of the upper endoscope was placed into the mouth and advanced without difficulty under direct visualization into the esophagus. Esophagus: The entire esophagus appeared normal with a regular Z-line Stomach: There was no evidence of solid food within the stomach and only a small amount of residual fluid which was suctioned without difficulty. The pyloric channel was examined with no evidence of residual ulcer. There was no note of any significant stenosis and the pylorus was noted to be widely patent. There was mild erythema in the antrum and biopsies were not taken as these were previously done last year with no evidence of H pylori Retroflexion was performed in the stomach which revealed nonspecific erythema in the gastric cardia Duodenum: The visualized duodenal mucosa was normal up until the 2nd portion. Biopsies were taken rule out celiac disease with minimal After the upper endoscopy, preparations were made for the flexible sigmoidoscopy. Once adequate sedation was obtained a MARISELA was performed. The digital rectal examination did not reveal any palpable lesions. The tip of the adult upper endoscope was placed in the anal canal and advanced without difficulty all the way to the cecum which was identified by the appendiceal orifice and ileocecal valve. The terminal ileum was intubated to a distance of 5 cm from the ileocecal valve and the mucosa appeared normal. The upper endoscope was then brought back to the cecum and careful examination of all mendoza of the colon was performed with irrigation of any residual stool. The mucosa throughout the entire colon appeared normal. Random biopsies were ta jeanie from the right and left colon to rule out microscopic colitis. There was minimal bleeding In the transverse colon, a 2 mm sessile polyp was removed by means of cold forceps. Resection and retrieval was complete with minimal bleeding In the rectum, a 2 mm sessile polyp was removed by means of cold forceps. Resection retrieval was complete with minimal bleeding In the sigmoid colon, there was note of multiple small diverticula Retroflexion was performed in the rectum which revealed grade 1 internal hemorrhoids The patient tolerated the procedure well and will be brought back to the [facility] area to be discharged once criteria are met. The prep was judged to be good and adequate to identify polyps less than 5 mm. The withdrawal time was 8 minutes. Complications There were no complications and estimated blood loss was minimal. Recommendations Resume previous diet Continue outpatient medications Follow-up pathology results Repeat colonoscopy in 3 years given multiple polyps on last colonoscopy and polyps on this exam Call our office ([facility]) to schedule follow-up with Carmenza An emergency contact number was given to the patient for any complications related to the procedure
[2021-04-06 15:32] VITALS: BP 127/82; PULSE 91; RESP 18; TEMP 37.1; O2SAT 97
[2021-04-06 15:37] VITALS: BP 114/77; PULSE 93; RESP 18; O2SAT 97
[2021-04-06 15:42] VITALS: BP 111/73; PULSE 91; RESP 18; O2SAT 97
[2021-04-06 15:47] VITALS: BP 114/78; PULSE 88; RESP 14; O2SAT 98
[2021-04-06 15:57] VITALS: BP 118/84; PULSE 88; RESP 16; TEMP 36.9; O2SAT 97
== END 2021-04-06 16:10 | disposition home or self-care (01) ==
PROVIDERS: PCP Physician Assistant; Referring Provider Internal Medicine Gastroenterology; Visit Provider Internal Medicine Gastroenterology
PROC: 0DJD8ZZ Inspection of Lower Intestinal Tract, Via Natural or Artificial Opening Endoscopic (ICD-10-PCS; CPT 45378; principal; 2021-04-06 15:00)
PROC: 0DJ08ZZ Inspection of Upper Intestinal Tract, Via Natural or Artificial Opening Endoscopic (ICD-10-PCS; CPT 43235; 2021-04-06 15:00)
DX: R19.7 Diarrhea, unspecified (principal); R11.2 Nausea with vomiting, unspecified; Z87.11 Personal history of peptic ulcer disease; K57.30 Diverticulosis of large intestine without perforation or abscess without bleeding; K64.0 First degree hemorrhoids; F17.210 Nicotine dependence, cigarettes, uncomplicated; J44.9 Chronic obstructive pulmonary disease, unspecified; I10 Essential (primary) hypertension; G47.33 Obstructive sleep apnea (adult) (pediatric); D12.3 Benign neoplasm of transverse colon; D12.8 Benign neoplasm of rectum
CPT/HCPCS: 45380; 43239

== ENCOUNTER → 2021-04-14 09:46 | Outpatient (CLI) | payer MEDICARE, MEDICAID, SELFPAY ==
--- NOTE | 2021-04-14 09:47 | DI.RAD.S_ITS ---
PROCEDURE: [place] BARIUM SWALLOW W SPEECH INDICATIONS: Dysphagia, unspecified COMPARISON: None. TECHNIQUE: Examination was conducted in conjunction with speech pathology per standard protocol. In the lateral projection, filming was performed of the patient swallowing. AP projection filming may also be performed with patient swallowing. COMPARISON: FINDINGS: Function: The oral preparatory phase appears normal, with proper containment. The subsequent oral propulsive phase, pharyngeal phase, and esophageal phase of swallowing also appear normal with all proffered substances. No laryngotracheal penetration or aspiration. No pathologic vallecular pooling. 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 No cervical esophageal webs. No Zenker's diverticulum. No strictures. Normal transit time of a calibrated barium tablet. IMPRESSION: Cricopharyngeal bar. There was normal transit of a calibrated barium tablet. Dictated by: eK Cerda M.D. on 04/14/2021 at 16:30 Approved by: Ke Cerda M.D. on 04/14/2021 at 16:30
--- NOTE | 2021-04-14 15:24 | ST.SWALLOW ---
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 Carmenza Lackey Setting Setting Outpatient Care Patient Information Identification Type Name Patient History Patient was referred for VFSS for further workup of cervical dysphagia. Patient has dysphagia with pills and solid food which has worsened since her sleep apnea surgery years ago. Subjective Observations Patient arrived on time. She was cooperative during the study. Patient Positioning Position View Lat-A/P Imaging Lateral View Textures Administered Trials Presented Thin Liquid via Spoon,Thin Liquid via Cup,[place] Liquid via Spoon,[place] Liquid via Cup,Honey Liquid via Spoon, Pudding Thick Liquid via Spoon ,Regular Textures,Barium Tablet Oral Phase Source: MBSIMP (TM) (C) Bolus Specific Scoring Grid Lip Closure No Impairment (WNL) Tongue Control During Bolus Hold No Impairment (WNL) Bolus Prep/Mastication No Impairment (WNL) Bolus Transport/Lingual Motion No Impairment (WNL) Oral Residue No Impairment (WNL) Residue Clearing No Impairment (WNL) Additional Oral Phase Observations No oral phase dysphagia observed. Pharyngeal Phase Source: MBSIMP (TM) (C) Bolus Specific Scoring Grid Soft Palate Elevation No Impairment (WNL) Tongue Base Strength/Range of Motion Mild Impairment Laryngeal Elevation Mild Impairment Anterior Hyoid Movement Mild Impairment Epiglottic Range of Motion Mild Impairment Vallecular Residue Yes: partially cleared with effortful swallow and multiple swallows Laryngeal Vestibular Closure Mild Impairment Pharyngeal Stripping Wave Mild Impairment Pharyngeal Contraction No Impairment (WNL) Posterior Pharyngeal Wall Residue Yes Clearance of Posterior Pharyngeal Wall WFL Residue Upper Esophageal Sphincter Opening No Impairment (WNL) Residue in the Pyriform Sinuses No Additional Pharyngeal Phase Observations Observed partial laryngeal elevation, reduced hyoid excursion, incomplete epiglottic inversion and incomplete laryngeal vestibular closure which all contribute to a collection of residue in the valleculae which did not fully clear with subsequent swallows and trace penetration (without aspiration) of liquids during multiple swallows. This correlates with a Penetration Aspiration Scale score of 2. Pharyngoesophageal segment ( PES) opening appears to be complete in distension and duration; however, there is a narrowing of the esophagus below the PES which is likely contributing to patient's globus sensation. A/P View Textures Administered Trials Presented [place] Liquid via Spoon,Barium Tablet A/P View Observations Pharyngeal Contraction No Impairment (WNL) Esophageal Clearance Upright Position No Impairment (WNL) Additional Observations As stated above, a narrowing of the esophagus consistent with a cricopharyngeal bar was present below the pharyngoesophageal segment opening. All boluses passed around the protrusion without obstruction of flow. Esophageal Observations Esophageal Function Complete clearance. Clinical Impressions Dysphagia Type Pharyngeal Findings Patient presents with mild pharyngeal dysphagia characterized by impairments in laryngeal elevation, anterior hyoid excursion, epiglottic movement and laryngeal vestibular closure. Patient may benefit from outpatient speech therapy including education on impairment and compensatory strategies (small bites/sips, slow rate, multiple swallows) as well as strengthening exercises (effortful swallow, noel maneuver, shaker/ CTAR). Additionally, it is recommended she f/u with her doctor regarding the suspected cricopharyngeal bar. Rehabilitation Potential Good Patient Appropriate for Therapy Yes Recommendations Diet Liquids Order Thin Diet Order Regular Medication Recommendation Whole in Carrier,One at a Time Treatment Plan Therapy Recommendations Outpatient Speech Therapy
== END ==
PROVIDERS: PCP Physician Assistant; Referring Provider Internal Medicine Gastroenterology; Visit Provider Internal Medicine Gastroenterology
DX: R13.10 Dysphagia, unspecified (principal)
CPT/HCPCS: 74230; 92611

== ENCOUNTER → 2021-06-09 12:44 | Outpatient (CLI) | payer MEDICARE, MEDICAID, SELFPAY ==
--- NOTE | 2021-06-09 | DI.CT.S_ITS ---
PROCEDURE: CT ABDOMEN PELVIS W CON INDICATIONS: Essential (primary) hypertension TECHNIQUE: After the administration of oral and intravenous contrast, axial sections were acquired from the lung bases to the pubic symphysis. Coronal and sagittal reformats were performed. For radiation dose reduction, the following was used: automated exposure control, adjustment of mA and/or kV according to patient size. COMPARISON:[facility], CR, XR CHEST 1 VIEW, 10/14/2017, 17:17. [facility], CT, CT CHEST W CON, 09/13/2020, 12:34. [facility], CT, KIDNEY/ URETER/BLADDER, 10/01/2012, 18:11. FINDINGS: Image quality: Excellent. Lung bases: Unremarkable. Small hiatal hernia. Heart: No significant findings. ABDOMEN: Liver: There is hepatic steatosis. A 2 cm hypodense nodule is seen in the segment V, unchanged compared to 09/13/2020, most likely a cyst or hemangioma. Gallbladder: Unremarkable. Biliary ducts: Unremarkable. Pancreas: Unremarkable. Spleen: Unremarkable. Adrenal Glands: Unremarkable. Kidneys and Ureters: There is a 1.7 x 2.5 cm parapelvic cyst in left kidney. A 1 cm exophytic cyst is also seen in the left kidney. No renal stone or hydronephrosis. Kidneys are normal in size and enhancement. Stomach and Bowel: Stomach, small bowel loops, and colon are unremarkable. Peritoneum: No abnormal intraperitoneal fluid. No free air. Ventral Wall: Small fat containing umbilical hernia. Abdominal Nodes: No retroperitoneal or mesenteric adenopathy by size criteria. Vessels: Aorta and inferior vena cava are normal in size. PELVIS: Pelvic Organs: Unremarkable. Bladder: Unremarkable. Pelvic Nodes: No enlarged lymph nodes. Miscellaneous: No inguinal hernias are seen. There is a patch-like skin thickening around the umbilicus. Bones: Unremarkable. IMPRESSION: 1. Hepatic steatosis. There is a 2 cm low-density nodule in segment V of liver, unchanged in size compared to 09/13/2020. It is probably a cyst or hemangioma. 2. Left renal cysts. 3. Skin thickening around the umbilicus. Please correlate with findings on physical exam. Dictated by: Leah Salgado M.D. on 06/09/2021 at 15:16 Approved by: Leah Salgado M.D. on 06/09/2021 at 22:43
== END ==
PROVIDERS: PCP Physician Assistant; Referring Provider Family Medicine; Visit Provider Family Medicine
DX: I10 Essential (primary) hypertension (principal); K76.0 Fatty (change of) liver, not elsewhere classified; N28.1 Cyst of kidney, acquired; K42.9 Umbilical hernia without obstruction or gangrene
CPT/HCPCS: 74177

== ENCOUNTER 2021-12-29 19:33 | Emergency (ER) | payer MEDICARE, MEDICAID, SELFPAY ==
[2021-12-29 19:40] VITALS: BP 135/85; PULSE 100; RESP 20; TEMP 36.3; O2SAT 96
--- NOTE | 2021-12-29 20:45 | PC.NURSE ---
Pt declined eye acuity at this time r/t pain opening eye.
[2021-12-29] MEDS: PROPARACAINE 0.5% OPHTH SOL 1 DROPS EYE-LEFT (20:52)
[2021-12-29] MEDS: FLUORESCEIN 1 MG STRIP EYE-LEFT (20:52)
== END 2021-12-29 21:31 | disposition left against medical advice (07) ==
PROVIDERS: PCP Physician Assistant
DX: S05.92XA Unspecified injury of left eye and orbit, initial encounter (principal); X58.XXXA Exposure to other specified factors, initial encounter
CPT/HCPCS: 99282

== ENCOUNTER 2022-06-16 15:37 | Emergency (ER) | payer MEDICARE, MEDICAID, SELFPAY ==
[2022-06-16] VITALS (10 sets, daily range): BP systolic 141–166; BP diastolic 72–91; PULSE 79–95; RESP 16–29; TEMP 36.9; O2SAT 95–98; BMI 31.6
--- NOTE | 2022-06-16 15:41 | DI.RAD.S_ITS ---
PROCEDURE: XR CHEST 1V INDICATIONS: chest pain TECHNIQUE: One view of the chest was acquired. COMPARISON: [facility], CR, XR CHEST 1V, 07/30/2020, 0:17. FINDINGS: Surgical changes and devices: None. Lungs and pleura: Lungs are clear. No pleural effusions or pneumothorax. Mediastinum: Mediastinal contours appear normal. Heart size is normal. Bones and chest wall: No suspicious bony lesions. Overlying soft tissues appear unremarkable. IMPRESSION: No acute cardiopulmonary abnormalities or focal airspace disease. Dictated by: Getachew David M.D. on 06/16/2022 at 16:37 Approved by: Getachew David M.D. on 06/16/2022 at 16:37
--- NOTE | 2022-06-16 15:53 | ED.CHESTPAIN ---
HPI - Chest Pain General Chief Complaint: Chest Pain Stated Complaint: blood pressure high, chest pain Time Seen by Provider: 06/16/22 15:44 Source: patient Mode of arrival: Ambulatory Limitations: no limitations History of Present Illness HPI narrative: This 52-year-old woman comes to the ER today because her blood pressure is too high. She says that she has had a little bit of dull chest pain and a little bit of mild shortness of breath slightly worse than average. She says she has felt a little foggy headed just slightly. She also reports blood pressure much higher than she is used to seeing. This was pointed out to her by her physical therapist who she was meeting with today for back pain and left hip bursitis and she also contacted her primary care doctor who encouraged her to come to the emergency department with blood pressures of about 220/120. She has been taking all of her regular medication. She has not needed to take nitroglycerin for angina lately. She does continue to smoke cigarettes. She has no fever. She endorses chronic cough. She has no abdominal pain nausea vomiting diarrhea. She generally feels poorly. Related Data Home Medications Medication Instructions Recorded Confirmed liraglutide 0.6 mg/0.1 mL (18 mg/3 1.8 mg SUBCUT DAILY 09/18/18 04/06/21 mL) subcutaneous pen injector (Victoza 2-Leroy) loperamide 2 mg capsule 2 mg PO BID PRN Diarrhea 09/18/18 04/06/21 atorvastatin 20 mg tablet 20 mg PO DAILY 01/10/19 04/06/21 lisinopril 2.5 mg tablet 20 mg PO DAILY 01/10/19 04/06/21 albuterol sulfate 90 mcg/actuation 1 inhalation inhalation PRN PRN 08/11/20 04/06/21 aerosol inhaler (Proventil HFA) Wheezing diphenhydramine HCl 25 mg capsule 25 mg PO BEDTIME 08/11/20 04/06/21 (Allergy (diphenhydramine)) melatonin 5 mg capsule 5 mg PO DAILY 08/11/20 04/06/21 multivitamin 1 cap PO DAILY 08/11/20 04/06/21 pantoprazole 20 mg tablet,delayed 20 mg PO DAILY 08/11/20 04/06/21 release acetaminophen 500 mg tablet 1,000 mg PO DAILY 08/24/20 04/06/21 (Tylenol Extra Strength) Carafate 1 tab PO QID 04/06/21 04/06/21 cyclobenzaprine 10 mg tablet 10 mg PO BEDTIME 04/06/21 04/06/21 Previous Rx's Medication Instructions Recorded nitroglycerin 0.4 mg sublingual 0.4 mg sublingual Q5MP PRN #20 tabs 09/15/16 tablet (Nitrostat) promethazine 25 mg tablet 25 mg PO TID PRN nausea and 06/16/22 vomiting #10 tabs Allergies Allergy/AdvReac Type Severity Reaction Status Date / Time adhesive [ADHESIVE] Allergy Intermediate RASH Verified 06/16/22 15:47 metformin [METFORMIN] AdvReac Intermediate VOMITING/DI Verified 06/16/22 15:47 ARRHEA codeine [CODEINE] AdvReac Mild VOMITING Verified 06/16/22 15:47 Review of Systems Review of Systems Narrative: Complete review of systems is negative other than as noted. Patient History Medical History (Updated 06/16/22 @ 17:27 by Bakari Calderon MD) Anxiety Arthritis Bowel and bladder incontinence Chest pain Chronic pain COPD (chronic obstructive pulmonary disease) Diabetes Endometriosis Epigastric pain Fibromyalgia GERD (gastroesophageal reflux disease) History of adenomatous polyp of colon History of TIA (transient ischemic attack) HTN (hypertension) Hyperlipidemia Obstructive sleep apnea on CPAP Pyloric channel ulcer Weight loss Surgical History (Updated 04/06/21 @ 14:11 by Gabriela Kauffman RN) History of appendectomy History of colonoscopy (~07/2020) History of esophagogastroduodenoscopy (EGD) (~07/2020) History of tonsillectomy Hx of hysterectomy Family History Grandfather Hypertension Heart disease Diabetes mellitus Grandmother Diabetes mellitus Hypertension Heart disease Mother Ovarian cancer Social History marital status: unknown household members: none Smoking Status: Current every day smoker alcohol intake: current substance use type: marijuana Smoking Status: Current every day smoker tobacco type: cigarettes alcohol intake frequency: a few times a week Substance Use Type: marijuana Exam Narrative Exam Narrative: GENERAL: Alert, cooperative and in no distress. HEAD: Atraumatic. Normocephalic. EYES: Sclera are clear without icterus. Extraocular movements are full. ENT: No rhinorrhea. Oropharynx is moist. Mouth exam is benign. NECK: Supple. Full range of motion. CARDIOVASCULAR: Normal rate and rhythm without murmur gallop or rub. RESPIRATORY: Clear to auscultation. Breath sounds equal bilaterally. No wheezes, rales, or rhonchi. GASTROINTESTINAL: Abdomen soft, non-tender, nondistended. EXTREMITIES: No edema, full range of motion. No obvious trauma. BACK: Normal inspection, no CVA tenderness. NEURO: Nonfocal examination, normal speech, normal gait. SKIN: No rash or erythema of visible areas PSYCH: Normally oriented. Normal range of affect. Appropriate behavior Initial Vital Signs Initial Vital Signs: Vital Signs Temperature 98.5 F 06/16/22 15:45 Course Orders Ordered: ED Orders 06/16/22 15:41 XR chest 1V Stat EKG-12 Lead Stat 06/16/22 16:18 Complete Blood Count AUTO DIFF Stat Comprehensive Metabolic Panel Stat Lipase Stat Magnesium Stat Troponin & CK Cardiac Panel Stat Discontinued Medications Metoprolol Tartrate (Metoprolol Tartrate 5 Mg/5 Ml Inj) 5 mg IV NOW ONE Stop: 06/16/22 15:58 Last Admin: 06/16/22 16:18 Dose: Not Given Documented By: AT Metoprolol Tartrate (Metoprolol Ir 25 Mg Tablet) 25 mg PO NOW ONE Stop: 06/16/22 15:58 Last Admin: 06/16/22 16:17 Dose: Not Given Documented By: AT Vital Signs Vital signs: Vital Signs - 8 hr 06/16/22 15:45 06/16/22 15:51 06/16/22 16:00 Temperature 98.5 F Pulse Rate 95 H Respiratory Rate 29 H Blood Pressure 165/91 H 141/80 H Pulse Oximetry 98 Oxygen Delivery Method Room Air 06/16/22 16:00 06/16/22 16:11 06/16/22 16:11 Temperature Pulse Rate 88 89 Respiratory Rate 23 19 Blood Pressure 143/82 H Pulse Oximetry 96 95 Oxygen Delivery Method Room Air Room Air 06/16/22 16:30 06/16/22 16:31 06/16/22 16:31 Temperature Pulse Rate 91 H 88 Respiratory Rate 24 18 Blood Pressure 144/72 H Pulse Oximetry 97 97 Oxygen Delivery Method 06/16/22 17:00 06/16/22 17:01 06/16/22 17:05 Temperature Pulse Rate 84 84 Respiratory Rate 21 Blood Pressure 155/88 H Pulse Oximetry 96 96 Oxygen Delivery Method 06/16/22 17:05 Temperature Pulse Rate 81 Respiratory Rate 16 Blood Pressure Pulse Oximetry 96 Oxygen Delivery Method Room Air MDM - Chest Pain Lab Data Result diagrams: 06/16/22 16:18 06/16/22 16:18 Labs: Lab Results 06/16/22 06/16/22 Range/Units 16:18 16:18 WBC 9.6 (4.5-11.0) X10^3/uL RBC 4.25 (4.0-5.2) X10^6/uL Hgb 13.3 (12.0-16.0) g/dL Hct 38.3 (36-46) % MCV 90.1 (80-100) fL MCH 31.4 (26-34) PG MCHC 34.8 (30-36) % RDW 14.0 (11.6-14.8) % Plt Count 316 (150-400) X10^3/uL Neut % (Auto) 54.1 (50-75) % Lymph % (Auto) 35.7 (25-40) % Tate % (Auto) 7.3 (3-14) % Eos % (Auto) 1.8 L (2-4) % Baso % (Auto) 1.1 (0-2) % Neut # (Auto) 5200 (9352-9554) /uL Lymph # (Auto) 3400 (4114-7472) /uL Tate # (Auto) 700 (0-900) /uL Eos # (Auto) 200 (0-450) /uL Baso # (Auto) 100 (0-100) /uL Sodium 141 (137-145) mmol/L Potassium 3.8 (3.4-5.1) mmol/L Chloride 107 (98-107) mmol/L Carbon Dioxide 22 (22-32) mmol/L BUN 11 (7-17) mg/dL Creatinine 0.55 (0.52-1.04) mg/dL Estimated GFR > 60 (>60) mL/min BUN/Creatinine Ratio 20.0 (6-22) Glucose 239 H (70-100) mg/dL Calcium 9.0 (8.4-10.2) mg/dL Magnesium 1.5 L (1.6-2.3) mg/dL Total Bilirubin 0.2 (0.2-1.3) mg/dL AST 34 (14-36) IU/L ALT 38 H (<35) IU/L Alkaline Phosphatase 120 (38-126) U/L Total Creatine Kinase 67 (30-135) U/L CK-MB (CK-2) TNP CK-MB (CK-2) Rel Index TNP Troponin I < 0.012 (0.01-0.034) ng/mL Total Protein 7.4 (6.3-8.2) g/dL Albumin 4.2 (3.5-5.0) g/dL Globulin 3.2 (1.7-4.1) g/dL Albumin/Globulin Ratio 1.3 (1.0-2.8) Lipase 338 H (23-300) U/L Imaging Data Chest x-ray: Radiologist's Impression: IMPRESSION:? No acute cardiopulmonary abnormalities or focal airspace disease. ? Dictated by: Getachew David M.D. on 06/16/2022 at 16:37 ? ? Approved by: Getachew David M.D. on 06/16/2022 at 16:37 ? MDM Narrative Medical decision making narrative: No dangerous abnormality discovered after workup today. Mildly elevated lipase. She does report drinking quite heavily before a multiple day episode of vomiting last weekend. The midepigastric pain has resolved. She still feels nauseated but has not been vomiting. I think that her blood pressure does not need any specific adjustment right now. I recommend that she abstain from alcohol. I wonder whether not she had a bout of pancreatitis last week and that was causing all the belly pain and nausea and just on its way down now. In any case will undergo for outpatient follow-up. Discharge Plan Departure Patient Disposition: Home Clinical Impression: Hypertension, Abdominal pain, Nausea Activity Restrictions/Additional Instructions: No immediately dangerous cause is identified for your symptoms today. Take the promethazine as needed for nausea. I strongly encourage you to abstain completely from alcohol in the coming days and weeks. Follow-up with your doctor for recheck of mild laboratory abnormalities today including magnesium and lipase. Eat a good diet including lots of raw dark-colored vegetables and lean meats over the next couple of days. Of course I recommend you quit smoking. Consider calling [facility] [employer] quit now to see if they have any additional advice that might be helpful to you. Return to the emergency department for new or worsening symptoms. Prescriptions: New promethazine 25 mg tablet 25 mg PO TID PRN (Reason: nausea and vomiting) Qty: 10 0RF No Action nitroglycerin [Nitrostat] 0.4 MG tablet, sublingual 0.4 mg Sublingual Q5MP PRNQty: 20 0RF multivitamin Capsule 1 cap PO DAILY melatonin 5 mg capsule 5 mg PO DAILY albuterol sulfate [Proventil HFA] 90 mcg/actuation HFA aerosol inhaler 1 inhalation INHALATION PRN PRN (Reason: Wheezing) diphenhydramine HCl [Allergy (diphenhydramine)] 25 mg capsule 25 mg PO BEDTIME pantoprazole 20 mg tablet,delayed release (DR/EC) 20 mg PO DAILY loperamide 2 mg capsule 2 mg PO BID PRN (Reason: Diarrhea) Victoza 2-Leroy 0.6 mg/0.1 mL (18 mg/3 mL) Pen Injector 1.8 mg subcut DAILY atorvastatin 20 mg tablet 20 mg PO DAILY lisinopril 2.5 mg tablet 20 mg PO DAILY acetaminophen [Tylenol Extra Strength] 500 mg Tablet 1,000 mg PO DAILY Carafate 1 tab PO QID cyclobenzaprine 10 mg Tablet 10 mg PO BEDTIME Referrals: Shikha Swartz PA-C [Primary Care Provider] -
[2022-06-16 16:27] LABS: Add Manual Diff / Slide Review NO; Basophils Absolute Auto 100 /uL (0-100); Basophils Percent Auto 1.1 % (0-2); Eosinophils Absolute Auto 200 /uL (0-450); Eosinophils Percent Auto 1.8 % (2-4); Hematocrit 38.3 % (36-46); Hemoglobin 13.3 g/dL (12.0-16.0); Lymphocytes Absolute Auto 3400 /uL (1100-4500); Lymphocytes Percent Auto 35.7 % (25-40); Mean Corpuscular HGB Conc 34.8 % (30-36); Mean Corpuscular Hemoglobin 31.4 PG (26-34); Mean Corpuscular Volume 90.1 fL (80-100); Monocytes Absolute Auto 700 /uL (0-900); Monocytes Percent Auto 7.3 % (3-14); Neutrophils Absolute Auto 5200 /uL (1500-7000); Neutrophils Percent Auto 54.1 % (50-75); Platelet Count 316 X10^3/uL (150-400); Red Blood Cell Count 4.25 X10^6/uL (4.0-5.2); White Blood Cell Count 9.6 X10^3/uL (4.5-11.0)
[2022-06-16 16:50] LABS: Alanine Aminotransferase 38 IU/L (<35); Albumin 4.2 g/dL (3.5-5.0); Albumin Globulin Ratio 1.3 (1.0-2.8); Alkaline Phosphatase 120 U/L (38-126); Aspartate Aminotransferase 34 IU/L (14-36); Bilirubin Total 0.2 mg/dL (0.2-1.3); Blood Urea Nitrogen 11 mg/dL (7-17); Carbon Dioxide 22 mmol/L (22-32); Chloride 107 mmol/L (98-107); Creatine Kinase 67 U/L (30-135); Estimated Glomerular Filt Rate > 60 mL/min (>60); Globulin 3.2 g/dL (1.7-4.1); Glucose 239 mg/dL (70-100); HEMOLYSIS 34 (0-50); Lipase 338 U/L (23-300); Magnesium 1.5 mg/dL (1.6-2.3); Potassium 3.8 mmol/L (3.4-5.1); Sodium 141 mmol/L (137-145); Total Protein 7.4 g/dL (6.3-8.2)
[2022-06-16 17:01] LABS: Troponin I < 0.012 ng/mL (0.01-0.034)
== END 2022-06-16 17:50 | disposition home or self-care (01) ==
PROVIDERS: Emergency Provider Family Medicine Addiction Medicine; PCP Physician Assistant
DX: I10 Essential (primary) hypertension (principal); R10.9 Unspecified abdominal pain; R11.0 Nausea; R79.89 Other specified abnormal findings of blood chemistry; R07.9 Chest pain, unspecified
CPT/HCPCS: 36415; 71045; 80053; 82550; 83690; 83735; 84484; 85025; 93005; 93010; 99284

== ENCOUNTER → 2022-08-01 14:55 | Outpatient (CLI) | payer MEDICARE, MEDICAID, SELFPAY ==
--- NOTE | 2022-08-01 | DI.MG.S_ITS ---
BILATERAL DIGITAL SCREENING MAMMOGRAM 3D/2D WITH CAD: 08/01/2022 CLINICAL: Routine screening. Family history of breast cancer. Comparison is made to exams dated: 03/29/2018 mammogram, 03/07/2017 mammogram, and 12/30/2013 mammogram - [facility]. Both breasts are almost entirely fatty (category a/<25% glandular tissue). Current study was also evaluated with a Computer Aided Detection (CAD) system. No significant masses, calcifications, or other findings are seen in either breast. There has been no significant interval change. IMPRESSION: NEGATIVE There is no mammographic evidence of malignancy. A 1 year screening mammogram is recommended. Based on the Tyrer Cuzick model (a risk assessment model) the patient's lifetime risk is 5.4% and her 10 year risk is 1.4%. According to the ACR, ACS, and NCCN guidelines, an annual breast MRI exam along with mammogram is recommended if the patient's lifetime risk is 20% or greater. This exam was interpreted at Station ID: [id number]. NOTE: For mammograms, a report in lay terms will be sent to the patient. Approximately 15% of breast malignancies will not be visualized mammographically. In the management of a palpable breast mass, a negative mammogram must not discourage biopsy of a clinically suspicious lesion. Electronically Signed By: Santo mooney/esequiel:08/01/2022 15:29:01 copy to: KISHAN ALVARADO letter sent: Normal Exam ACR BI-RADS Category 1: Negative [id number]
== END ==
PROVIDERS: PCP Physician Assistant; Referring Provider Physician Assistant; Visit Provider Physician Assistant
DX: Z12.31 Encounter for screening mammogram for malignant neoplasm of breast (principal); Z80.3 Family history of malignant neoplasm of breast
CPT/HCPCS: 77063; 77067

== ENCOUNTER → 2022-08-14 09:20 | Outpatient (CLI) | payer MEDICARE, MEDICAID, SELFPAY ==
--- NOTE | 2022-08-14 | DI.RAD.S_ITS ---
PROCEDURE: XR HIP W PEL IF DONE SUZETTE MIN 4V INDICATIONS: BILATERAL HIP PAIN TECHNIQUE: AP pelvis with lateral view(s) of the bilateral hip(s). COMPARISON: None. FINDINGS: Bones: No fractures or dislocations. Pelvic ring appears intact. No suspicious bony lesions. Minimal periarticular osteophytes are noted at the hip joints with very minimal narrowing. No erosions. Soft tissues: The visualized bowel gas pattern is normal. No suspicious soft tissue calcifications. IMPRESSION: Very minimal early arthritic change of the hip joints bilaterally. Dictated by: Keri Benites M.D. on 08/14/2022 at 14:23 Approved by: Keri Benites M.D. on 08/14/2022 at 14:23
== END ==
PROVIDERS: PCP Physician Assistant; Referring Provider Physician Assistant; Visit Provider Physician Assistant
DX: M25.551 Pain in right hip (principal); M25.552 Pain in left hip
CPT/HCPCS: 73522

== ENCOUNTER → 2022-09-15 15:09 | Outpatient (CLI) | payer MEDICARE, MEDICAID, SELFPAY ==
--- NOTE | 2022-09-15 | DI.MRI.S_ITS ---
PROCEDURE: MR LUMBAR SPINE WO CON INDICATIONS: STRAIN OF LUMBAR REGION/LUMBAR RADICULOPATHY TECHNIQUE: Noncontrast sagittal T1 spin echo and T2 fast echo, sagittal STIR, and T2 fast spin echo through the lumbar spine. In cases with scoliosis, additional coronal T2 fast spin echo may be performed. COMPARISON: [facility], MR, MR LUMBAR SPINE WO CON, 05/07/2020, 12:54. FINDINGS: Image quality: Excellent. Alignment and Curvature: There is normal bony alignment. Bone Marrow: Marrow is of normal overall signal. No acute vertebral body compression fractures. Spinal Cord: Conus medullaris terminates at the L1-L2 level. Visualized cord demonstrates normal signal and size. Paraspinous Soft Tissues: No paravertebral masses. T12-L1: Stable findings. No canal stenosis or foraminal stenosis. Mild facet hypertrophy. L1-L2: Stable findings. Mild facet hypertrophy. No canal stenosis or foraminal stenosis. L2-L3: Stable findings. Mild facet hypertrophy. No canal stenosis or foraminal stenosis. L3-L4: Continued presence of a far right lateral disc protrusion, possibly minimally increased compared to the previous study, with impingement on the right L3 nerve root far laterally. No central canal stenosis. Mild disc bulge and mild facet hypertrophy. Are L4-L5: Stable findings. Mild disc bulge. Prominent bilateral facet hypertrophy. No significant canal stenosis. Mild bilateral foraminal narrowing. L5-S1: Stable findings. Bilateral facet hypertrophy. Mild disc bulge. No canal stenosis or foraminal stenosis. IMPRESSION: 1. Question interval increase in far right lateral disc protrusion at L3-L4 with impingement on the right L3 nerve root far laterally. Question: Does this patient have symptoms of a right L3 radiculitis? 2. Otherwise stable findings. 3. Multilevel facet arthropathy. Dictated by: Ghassan Morales M.D. on 09/15/2022 at 15:50 Approved by: Ghassan Morales M.D. on 09/15/2022 at 15:56
== END ==
PROVIDERS: PCP Physician Assistant; Referring Provider Physician Assistant Surgical; Visit Provider Physician Assistant Surgical
DX: S39.012A Strain of muscle, fascia and tendon of lower back, initial encounter (principal); M47.26 Other spondylosis with radiculopathy, lumbar region; M51.16 Intervertebral disc disorders with radiculopathy, lumbar region
CPT/HCPCS: 72148

== ENCOUNTER → 2023-01-11 12:05 | Outpatient (CLI) | payer MEDICARE, MEDICAID, SELFPAY ==
[2023-01-11 13:25] LABS: Add Manual Diff / Slide Review NO; Basophils Absolute Auto 100 /uL (0-100); Basophils Percent Auto 0.3 % (0-2); Eosinophils Absolute Auto 300 /uL (0-450); Eosinophils Percent Auto 2.2 % (2-4); Hematocrit 43.1 % (36-46); Hemoglobin 14.6 g/dL (12.0-16.0); Lymphocytes Absolute Auto 4000 /uL (1100-4500); Lymphocytes Percent Auto 26.8 % (25-40); Mean Corpuscular HGB Conc 33.9 % (30-36); Mean Corpuscular Hemoglobin 30.1 PG (26-34); Mean Corpuscular Volume 88.7 fL (80-100); Monocytes Absolute Auto 1200 /uL (0-900); Monocytes Percent Auto 7.8 % (3-14); Neutrophils Absolute Auto 9400 /uL (1500-7000); Neutrophils Percent Auto 62.9 % (50-75); Platelet Count 401 X10^3/uL (150-400); Red Blood Cell Count 4.86 X10^6/uL (4.0-5.2)
[2023-01-11 13:29] LABS: Hemoglobin A1C% w Est Avg Glu 6.8 % (4.0-6.0)
[2023-01-11 13:32] LABS: INR 0.9 (0.9-1.3); Prothrombin Time 10.4 SECONDS (10.1-12.7)
[2023-01-11 13:35] LABS: PTT Partial Thromboplastin Tim 28 SECONDS (26-36)
[2023-01-11 13:36] LABS: BUN Creatinine Ratio 21.3 (6-22); Blood Urea Nitrogen 32 mg/dL (7-17); Calcium 10.2 mg/dL (8.4-10.2); Carbon Dioxide 25 mmol/L (22-32); Chloride 96 mmol/L (98-107); Estimated Glomerular Filt Rate 41 mL/min (>60); Glucose 104 mg/dL (70-100); HEMOLYSIS < 15 (0-50); Sodium 136 mmol/L (137-145)
[2023-01-11 13:37] LABS: Potassium 5.6 mmol/L (3.4-5.1)
== END ==
PROVIDERS: PCP Physician Assistant; Referring Provider Physical Medicine & Rehabilitation; Visit Provider Physical Medicine & Rehabilitation
DX: Z01.818 Encounter for other preprocedural examination (principal); Z51.81 Encounter for therapeutic drug level monitoring; R73.9 Hyperglycemia, unspecified; Z01.812 Encounter for preprocedural laboratory examination
CPT/HCPCS: 36415; 80048; 83036; 85025; 85610; 85730; 93005; 93010

== ENCOUNTER 2023-01-12 10:29 | Emergency (ER) | payer MEDICARE, MEDICAID, SELFPAY ==
[2023-01-12] VITALS (13 sets, daily range): BP systolic 93–120; BP diastolic 52–78; PULSE 98–113; RESP 18–27; TEMP 36.7; O2SAT 93–100
--- NOTE | 2023-01-12 10:57 | ED.ALLEREA ---
HPI - Allergic Reaction General Chief complaint: Allergic Reaction Stated complaint: swollen tongue x 1 week, lisinopril Time Seen by Provider: 01/12/23 10:33 Source: patient and EMS Mode of arrival: EMS History of Present Illness HPI narrative: Patient is a 52-year-old female history of hyperlipidemia, chronic back pain, fibromyalgia, hypertension on lisinopril, alcohol abuse, chronic back pain presenting today with throat swelling. She actually has had some throat swelling and tense tongue swelling ongoing for 1 week. She developed a rash about 5 days ago got prednisone and Pepcid. Today she feels like her voice is a little bit hoarse her in that her tongue is slightly more swollen. She still able to manage her secretions and talk without any problem. She is having pain all over. She says that the rash was started on both arms and has spread throughout her body. She has no fever or chills. She took 50 mg of Benadryl prior to arrival it has not helped. She apparently was prescribed Suboxone 2 weeks ago from her PCP but pharmacy will not fill it. Related Data Home Medications Medication Instructions Recorded Confirmed liraglutide 0.6 mg/0.1 mL (18 mg/3 1.8 mg SUBCUT DAILY 09/18/18 04/06/21 mL) subcutaneous pen injector (Victoza 2-Leroy) loperamide 2 mg capsule 2 mg PO BID PRN Diarrhea 09/18/18 04/06/21 atorvastatin 20 mg tablet 20 mg PO DAILY 01/10/19 04/06/21 lisinopril 2.5 mg tablet 20 mg PO DAILY 01/10/19 04/06/21 albuterol sulfate 90 mcg/actuation 1 inhalation inhalation PRN PRN 08/11/20 04/06/21 aerosol inhaler (Proventil HFA) Wheezing diphenhydramine HCl 25 mg capsule 25 mg PO BEDTIME 08/11/20 04/06/21 (Allergy (diphenhydramine)) melatonin 5 mg capsule 5 mg PO DAILY 08/11/20 04/06/21 multivitamin 1 cap PO DAILY 08/11/20 04/06/21 pantoprazole 20 mg tablet,delayed 20 mg PO DAILY 08/11/20 04/06/21 release acetaminophen 500 mg tablet 1,000 mg PO DAILY 08/24/20 04/06/21 (Tylenol Extra Strength) Carafate 1 tab PO QID 04/06/21 04/06/21 cyclobenzaprine 10 mg tablet 10 mg PO BEDTIME 04/06/21 04/06/21 Previous Rx's Medication Instructions Recorded nitroglycerin 0.4 mg sublingual 0.4 mg sublingual Q5MP PRN #20 tabs 09/15/16 tablet (Nitrostat) promethazine 25 mg tablet 25 mg PO TID PRN nausea and 06/16/22 vomiting #10 tabs epinephrine 0.3 mg/0.3 mL 0.3 mg (0.3 mL) IM Q5-15M PRN 01/12/23 injection, auto-injector anaphylaxis #2 ea Allergies Allergy/AdvReac Type Severity Reaction Status Date / Time adhesive [ADHESIVE] Allergy Intermediate RASH Verified 01/12/23 10:38 metformin [METFORMIN] AdvReac Intermediate VOMITING/DI Verified 01/12/23 10:38 ARRHEA codeine [CODEINE] AdvReac Mild VOMITING Verified 01/12/23 10:38 Review of Systems Review of Systems ROS Unobtainable: All systems reviewed & are unremarkable except as noted in HPI and below Patient History Medical History (Updated 01/12/23 @ 12:08 by Jyothi Moreira DO) Anxiety Arthritis Bowel and bladder incontinence Chest pain Chronic pain COPD (chronic obstructive pulmonary disease) Diabetes Endometriosis Epigastric pain Fibromyalgia GERD (gastroesophageal reflux disease) History of adenomatous polyp of colon History of TIA (transient ischemic attack) HTN (hypertension) Hyperlipidemia Obstructive sleep apnea on CPAP Pyloric channel ulcer Weight loss Surgical History (Updated 04/06/21 @ 14:11 by Gabriela Kauffman RN) History of appendectomy History of colonoscopy (~07/2020) History of esophagogastroduodenoscopy (EGD) (~07/2020) History of tonsillectomy Hx of hysterectomy Family History Grandfather Hypertension Heart disease Diabetes mellitus Grandmother Diabetes mellitus Hypertension Heart disease Mother Ovarian cancer Social History marital status: unknown household members: none Smoking Status: Current every day smoker alcohol intake: current substance use type: marijuana Smoking Status: Current every day smoker tobacco type: cigarettes alcohol intake frequency: a few times a week Substance Use Type: marijuana Exam Initial Vital Signs Initial Vital Signs: Vital Signs Temperature 98.1 F 01/12/23 10:30 Pulse Rate 113 H 01/12/23 10:30 Respiratory Rate 18 01/12/23 10:30 Blood Pressure 120/78 01/12/23 10:30 Pulse Oximetry 99 01/12/23 10:30 Oxygen Delivery Method 01/12/23 10:30 GENERAL: Awake alert well-appearing 52-year-old female HEENT: Head atraumatic,EOMI, pupils reactive, face symmetric, moist mucous membranes PHARYNX: No uvula is present she had DENIZ surgery no tonsils are present no significant airway edema no stridor no tongue swelling imaging own secretions CARDIOVASCULAR: Regular rate and rhythm without murmurs, rubs or gallops. RESPIRATORY: Breath sounds equal bilaterally, no wheezes rales or rhonchi. ABDOMEN: Soft, nontender. Normoactive bowel sounds all 4 quadrants. No guarding or rebound. EXTREMITIES: Normal range of motion, no clubbing or edema. Neurovascularly intact NEUROLOGICAL: Alert and oriented x4.Normal gait and speech. Cranial nerves II through XII grossly intact. SKIN: Mild blanchable erythematous rash on arms only no significant urticaria no petechiae Course Orders Ordered: Discontinued Medications Epinephrine HCl (Epinephrine 1 Mg/Ml) 0.3 mg IM NOW ONE Stop: 01/12/23 10:45 Last Admin: 01/12/23 11:00 Dose: 0.3 mg Documented By: CELESTE Famotidine (Famotidine 20 Mg/2 Ml Vial) 20 mg IV NOW LUCIA Last Admin: 01/12/23 11:00 Dose: 20 mg Documented By: CTS Methylprednisolone (Methylprednisolone 125 Mg/2 Ml Vial) 125 mg IV NOW ONE Stop: 01/12/23 10:45 Last Admin: 01/12/23 11:00 Dose: 125 mg Documented By: CTS Vital Signs Vital signs: Vital Signs - 8 hr 01/12/23 11:30 01/12/23 11:31 01/12/23 11:31 Pulse Rate 98 H 99 H Respiratory Rate 21 20 Blood Pressure 97/62 Pulse Oximetry 93 95 Oxygen Delivery Method 01/12/23 11:33 01/12/23 11:34 01/12/23 11:39 Pulse Rate 101 H Respiratory Rate 22 Blood Pressure 104/64 Pulse Oximetry Oxygen Delivery Method 01/12/23 12:00 01/12/23 12:12 01/12/23 12:12 Pulse Rate 103 H 103 H Respiratory Rate 27 H 20 Blood Pressure 93/63 Pulse Oximetry 95 95 Oxygen Delivery Method Room Air Room Air MDM - Allergic Reaction MDM Narrative Medical decision making narrative: Patient 52-year-old female who presents with throat pain difficulty swallowing ongoing for 1 week while on lisinopril. She developed a rash 3 days ago. She does not have signs of angioedema although this could be related to her lisinopril. She is overall feeling significantly better after epinephrine and Solu-Medrol. She took Benadryl prior to arrival. Unclear exactly what she is allergic to we discussed how she should not take lisinopril. This is not a classic presentation of angioedema secondary to lisinopril not convinced that is from that however due to safety and airway reasons recommend she stop taking it. She can follow up with PCP in regards to her blood pressure control. However her blood pressure is not significantly high here. She reports that her blood pressure has actually been low she may not need blood pressure medication any longer. No blood work necessarily indicated today. Last visit to this hospital was 06/16/2022 with elevated blood pressure. Differential diagnosis includes anaphylaxis versus angioedema Discharge Plan Departure Patient Disposition: Home Clinical Impression: Angioedema, Anaphylaxis Instructions: DI for Adverse Drug Reaction -- Allergic Activity Restrictions/Additional Instructions: *You have been diagnosed with allergic reaction *What to do: He is unclear exactly what you are allergic to it maybe lisinopril. I strongly recommend you stop taking lisinopril. You may require further allergy testing. *Continue to take medications as directed--> SENT TO [facility] Epinephrine 1 injection every 15 minutes x2 if needed for lip swelling tongue swelling difficulty breathing Finish prednisone as previously prescribed Benadryl 25-50 mg every 6 hours if needed for itching *Follow up with your primary care provider in 2-3 days or call [phone] *Return to ER if you should have increased difficulty breathing worsening rash or any new, worsening or concerning symptoms Prescriptions: New epinephrine 0.3 mg/0.3 mL auto-injector 0.3 mg IM Q5-15M PRN (Reason: anaphylaxis) Qty: 2 0RF Rx Instructions: do not exceed 3 doses per episode No Action nitroglycerin [Nitrostat] 0.4 MG tablet, sublingual 0.4 mg Sublingual Q5MP PRNQty: 20 0RF multivitamin Capsule 1 cap PO DAILY melatonin 5 mg capsule 5 mg PO DAILY albuterol sulfate [Proventil HFA] 90 mcg/actuation HFA aerosol inhaler 1 inhalation INHALATION PRN PRN (Reason: Wheezing) diphenhydramine HCl [Allergy (diphenhydramine)] 25 mg capsule 25 mg PO BEDTIME pantoprazole 20 mg tablet,delayed release (DR/EC) 20 mg PO DAILY loperamide 2 mg capsule 2 mg PO BID PRN (Reason: Diarrhea) Victoza 2-Leroy 0.6 mg/0.1 mL (18 mg/3 mL) Pen Injector 1.8 mg subcut DAILY atorvastatin 20 mg tablet 20 mg PO DAILY lisinopril 2.5 mg tablet 20 mg PO DAILY acetaminophen [Tylenol Extra Strength] 500 mg Tablet 1,000 mg PO DAILY Carafate 1 tab PO QID cyclobenzaprine 10 mg Tablet 10 mg PO BEDTIME promethazine 25 mg tablet 25 mg PO TID PRN (Reason: nausea and vomiting) Qty: 10 0RF Referrals: Shikha Swartz PA-C [Primary Care Provider] - Stand Alone Forms: Patient Portal/API
[2023-01-12] MEDS: methylPREDNISolone 125 MG/2 ML VIAL IV (11:00)
[2023-01-12] MEDS: EPINEPHrine 1 MG/ML 0.3 MG IM (11:00)
[2023-01-12] MEDS: FAMOTIDINE 20 MG/2 ML VIAL IV (11:00)
--- NOTE | 2023-01-12 11:16 | PC.NURSE ---
Pt states she has been taking lisinopril for years. t-7 days pt started with tongue swelling. was seen in the [facility] clinic and was made aware she was taking lisinopril. Placed pt on steroid pack and pt continued to take her lisinopril all week. Today presents with voice hoarseness, a rash which started 3 days ago, and tongue continues to be swollen. airway patent. Pt given 0.3mg IM epi, placed on cardiac monitoring along with additional meds per JAN. Pt resting on stretcher. water given. NAD
== END 2023-01-12 12:18 | disposition home or self-care (01) ==
PROVIDERS: Emergency Provider Emergency Medicine; PCP Physician Assistant
DX: T78.2XXA Anaphylactic shock, unspecified, initial encounter (principal); T78.3XXA Angioneurotic edema, initial encounter
CPT/HCPCS: 96372; 96374; 96375; 99284; J0171; J2930

== ENCOUNTER → 2023-10-02 08:46 | Outpatient (CLI) | payer MEDICARE, MEDICAID, SELFPAY ==
--- NOTE | 2023-10-02 | DI.NM.S_ITS ---
PROCEDURE: NM ERICA PERF SPECT R&S PHARM Rest and pharmacological stress myocardial perfusion SPECT with gated imaging and ejection fraction RADIOPHARMACEUTICAL: 12.7 mCi Tc-99m tetrafosmin IV at rest and 26.6 mCi Tc-99m tetrafosmin IV at peak effect of pharmacological stress. [id number] was performed. INDICATIONS: Dyspnea on exertion TECHNIQUE: Radiopharmaceutical was injected at peak stress test, and also at rest. SPECT images were obtained. SPECT myocardial perfusion images were displayed in short axis, horizontal long axis, and vertical long axis views. Gated images were reviewed using Qt Software software. COMPARISON: None. CARDIAC STRESS: A pharmacologic stress test was performed under the supervision of an attending staff, using an infusion of lexiscan 0.4mg IV X1. Hemodynamic data: There is normal blood pressure and heart rate response to pharmacologic stress. Symptoms: The patient had non-diagnostic chest pain with lexiscan. Aminophylline: none EKG: No diagnostic changes of ischemia; no ectopy. FINDINGS: Raw data: There is good myocardial uptake of radiotracer. No significant motion artifacts. Tbve-fy-dozqx ratio is 0.28 (normal is less than 0.38 for tetrafosmin tracer). Left ventricle function: Gated images demonstrate normal left ventricular wall thickening. No segmental wall motion abnormalities. No transient ischemic dilation; TID is 1.11 (normal less than 1.3). Left ventricle resting end diastolic volume is 104 mL. Left ventricle stress ejection fraction is 67%; normal range is above 45%. Myocardial perfusion: There is a mildly intense distal anterior wall defect consistent with breast attenuation artifact but prone imaging is not available to verify it. Small non-transmural infarction in the distal anterior wall can't be excluded due to absence of prone imaging. No ischemia. IMPRESSION: Low risk, probably normal pharm nuclear stress test 1) There is a mildly intense distal anterior wall defect consistent with breast attenuation artifact but prone imaging is not available to verify it. Small non-transmural infarction in the distal anterior wall can't be excluded due to absence of prone imaging. No ischemia. 2) Normal left ventricular size, wall motion, and systolic function (EF post stress 67%). 3) No ST change with lexiscan. 4) Non diagnostic chest pain with lexiscan. 5) Compared to the nuclear stress test done 09/15/2016, no significant change. Dictated by: Ele Murphy MD on 10/03/2023 at 16:50 Approved by: Ele Murphy MD on 10/03/2023 at 16:53
--- NOTE | 2023-10-02 | DI.ECHO.S_ITS ---
[facility] +---------+ : : [address] [place] [place] : : : : [id number] : : : : Phone: [phone]+ Echocardiogram Report + + :Name: ZAHEER TROTTER Study Date: 10/02/2023 Height: 64 in : :[facility] ReadingLocation: Weight: 183 lb : : Gender: Female BSA: 1.9 m2 : :: 1970 Age: 53 yrs BP: 139/101 mmHg: :Reason For Study: DYSPNEA ON EXERTION : :Ordering Physician: SUJATHA, : :ZABRINA Performed By: Daniela Washburn : :Referring: ZABRINA MURPHY : + + Interpretation Summary 1) Normal left ventricular size and thickness with low normal systolic function (EF 50-55%). 2) There are no obvious focal wall motion abnormalities noted but poor endocardial definition reduces the sensitivity for the detection of such. 3) Normal right ventricular size and function. 4) No significant valvular abnormalities. 5) No prior Echo available for comparison. Procedure: A two-dimensional transthoracic echocardiogram with color flow and Doppler was performed. The study quality was technically adequate. There is no prior echocardiogram noted for this patient. The patient was in sinus rhythm with heart rates between 71-83 bpm during the exam. Left Ventricle: The left ventricle is normal in size and wall thickness. The ejection fraction is estimated to be 50-55%. There are no obvious focal wall motion abnormalities noted but poor endocardial definition reduces the sensitivity for the detection of such. Right Ventricle: The right ventricle is normal in size and function. Atria: The left atrial size is normal. Right atrial size is normal. There is no Doppler evidence for an interatrial shunt. Mitral Valve: The mitral valve is normal in structure and function. There is trace mitral regurgitation. Aortic Valve: The aortic valve is trileaflet. The aortic valve opens well. There is no aortic valve stenosis. There is trace aortic regurgitation. Tricuspid Valve: The tricuspid valve is normal in structure and function. There is trace tricuspid regurgitation. Pulmonary artery pressures cannot be estimated because of the lack of a measurable TR jet velocity. Pulmonic Valve: The pulmonic valve leaflets are thin and pliable; valve motion is normal. There is no pulmonic valvular regurgitation. Great Vessels: The aortic root is normal size. The dimensions of the ascending aorta are normal. The IVC is of normal diameter and collapses greater than 50% with a sniff. This suggests a low right atrial pressure of 3 mm Hg. Pericardium/ Pleura There is no pericardial effusion. There is no pleural effusion. MMode/2D Measurements & Calculations LVIDd: 4.9 cm LVOT diam: 2.3 cm LVIDs: 3.3 cm Ao root diam: 3.1 cm FS: 32.8 % asc Aorta Diam: 3.8 cm EPSS: 1.2 cm Ao Arch Diam (Prox Trans): 3.2 cm IVSd: 0.69 cm LVPWd: 0.94 cm LV ahumada. diameter/BSA (cm/m^2): 2.6 LV sys. diameter/BSA (cm/m^2): 1.7 LA A2 area: 12.6 cm2 RA long axis: 4.9 cm LA A4 area: 14.4 cm2 RA area: 13.1 cm2 LA length (vol): 4.9 cm RA vol: 29.5 ml LA vol: 31.3 ml RA : 15.7 ml/m2 LA vol index: 16.6 ml/m2 IVC diam: 1.1 cm RVD1 (basal): 2.9 cm RVD2 (mid): 2.9 cm TAPSE: 1.6 cm Doppler Measurements & Calculations Ao V2 max: 128.8 cm/sec LVOT Max Lance: 77.7 cm/sec Ao V2 mean: 94.2 cm/sec LV V1 max P.4 mmHg Ao max P.6 mmHg LV V1 VTI: 14.7 cm Ao mean P.9 mmHg TRU(I,D): 2.3 cm2 Ao V2 VTI: 26.6 cm TRU(V,D): 2.5 cm2 sev ratio: 0.55 TRU indexed to BSA (cm^2/m^2): 1.2 MV E max lance: 47.8 cm/sec PA V2 max: 81.9 cm/sec MV A max lance: 75.9 cm/sec PA V2 mean: 59.8 cm/sec MV E/A: 0.63 PA mean P.6 mmHg Med Peak E' Lance: 4.3 cm/sec PA pr(Accel): 37.9 mmHg E/E' med: 11.2 Lat Peak E' Lance: 7.0 cm/sec E/E' lat: 6.8 E/e' average: 9.0 MV dec time: 0.24 sec SVLVOT): 60.0 ml Reading Physician:04:13 PM
== END ==
PROVIDERS: PCP Physician Assistant; Referring Provider Internal Medicine Cardiovascular Disease; Visit Provider Internal Medicine Cardiovascular Disease
DX: R06.09 Other forms of dyspnea (principal)
CPT/HCPCS: 78452; 93017; 93306; A9502; J2785

== ENCOUNTER 2023-10-16 13:34 | Observation (INO) | payer MEDICARE, MEDICAID, SELFPAY ==
[2023-10-16] VITALS (15 sets, daily range): BP systolic 126–170; BP diastolic 78–92; PULSE 78–118; RESP 16–54; TEMP 36.4–36.8; O2SAT 93–98
--- NOTE | 2023-10-16 13:58 | DI.RAD.S_ITS ---
PROCEDURE: XR CHEST 1V INDICATIONS: suspected sepsis TECHNIQUE: One view of the chest was acquired. COMPARISON: [facility], CR, XR CHEST 1V, 06/16/2022, 16:19. FINDINGS: Surgical changes and devices: None. Lungs and pleura: Lungs are clear. No pleural effusions or pneumothorax. Mediastinum: Mediastinal contours appear normal. Heart size is normal. Bones and chest wall: No suspicious bony lesions. Overlying soft tissues appear unremarkable. IMPRESSION: No acute cardiopulmonary abnormality is seen. Approved by: Jameel Graves M.D. on 10/16/2023 at 14:24
[2023-10-16] MEDS: LORazepam 2 MG/ML INJ 0.5 MG IV (14:15)
[2023-10-16] MEDS: SODIUM CHLORIDE 0.9% 1,000 ML 1000 ML IV (14:15)
[2023-10-16 14:21] LABS: Add Manual Diff / Slide Review NO; Basophils Absolute Auto 200 /uL (0-100); Basophils Percent Auto 1.4 % (0-2); Eosinophils Absolute Auto 0 /uL (0-450); Hematocrit 46.3 % (36-46); Lymphocytes Absolute Auto 2300 /uL (1100-4500); Lymphocytes Percent Auto 14.8 % (25-40); Mean Corpuscular HGB Conc 34.6 % (30-36); Mean Corpuscular Hemoglobin 32.1 PG (26-34); Mean Corpuscular Volume 92.8 fL (80-100); Monocytes Absolute Auto 900 /uL (0-900); Monocytes Percent Auto 5.8 % (3-14); Neutrophils Absolute Auto 11900 /uL (1500-7000); Platelet Count 386 X10^3/uL (150-400); White Blood Cell Count 15.2 X10^3/uL (4.5-11.0)
[2023-10-16 14:30] LABS: HCO3 VBG 25 mmol/L (24-28); PCO2 VBG 25.6 mmHg (45-50); PO2 VBG 25 mmHg (35-45); Total CO2 VBG 26 mmol/L (24-29)
[2023-10-16 14:30] LABS: Prothrombin Time 11.8 SECONDS (10.1-12.7)
[2023-10-16 14:31] LABS: HEMOLYSIS < 15 (0-50)
[2023-10-16 14:31] LABS: Fractionated Inspired Oxygen 28; Oxygen Saturation VBG 61 % (70-75)
[2023-10-16 14:33] LABS: PTT Partial Thromboplastin Tim 26 SECONDS (25.1-36.5)
[2023-10-16 14:35] LABS: Creatine Kinase 67 U/L (30-135)
[2023-10-16 14:36] LABS: Alanine Aminotransferase 77 IU/L (<35); Albumin Globulin Ratio 1.3 (1.0-2.8); Alkaline Phosphatase 134 U/L (38-126); Aspartate Aminotransferase 38 IU/L (14-36); BUN Creatinine Ratio 13.2 (6-22); Bilirubin Total 0.9 mg/dL (0.2-1.3); Blood Urea Nitrogen 9 mg/dL (7-17); Calcium 10.2 mg/dL (8.4-10.2); Carbon Dioxide 29 mmol/L (22-32); Chloride 88 mmol/L (98-107); Estimated Glomerular Filt Rate > 60 mL/min (>60); Globulin 3.9 g/dL (1.7-4.1); Glucose 383 mg/dL (70-100); Lipase 115 U/L (23-300); Potassium 3.8 mmol/L (3.4-5.1); Sodium 135 mmol/L (137-145); Total Protein 8.9 g/dL (6.3-8.2)
[2023-10-16 14:48] LABS: Troponin I < 0.012 ng/mL (0.01-0.034)
[2023-10-16 14:54] LABS: Procalcitonin 0.06 ng/mL (<0.5)
[2023-10-16 14:56] LABS: Lactate (Lactic Acid) 5.1 mmol/L (0.7-2.1)
--- NOTE | 2023-10-16 14:57 | ED.NAVMDI ---
HPI - Nausea/Vomiting/Diarrhea General Chief complaint: Nausea/Vomiting/Diarrhea Stated complaint: vomiting 3 day Time Seen by Provider: 10/16/23 14:03 Source: patient and EMS Mode of arrival: EMS Limitations: no limitations History of Present Illness HPI Narrative: 53-year-old female with complaint of diabetes, hypertension, dyslipidemia remote TIA and ND in the past patient states no anticoagulants. She has a history of reflux. She started having nausea on Sunday. Had run out of her GERD medication and then started having increasing vomiting and feeling worse and worse. She states she has not been able to take any of her diabetic medications. She states she is been trying to drink water but persistently throwing it up with a little bit of water an acid. No blood in her emesis. She has not had a bowel movement in several days, she states decreased flatus. No objective fevers but she is felt hot and cold intermittently. She denies any active abdominal pain currently, no chest pain, she has felt somewhat short of breath. She states that started about 24 hours after all of the rest of this. No cold cough or congestive changes. She states she is had a decrease in urine output but has been urinating regularly. No dysuria urgency or frequency. States she takes medications for diabetes, GERD, hypertension dyslipidemia. States he is had a prior hysterectomy with removal of fallopian tubes and ovaries, she is also had sleep apnea surgery with removal of her tonsils. States allergic to metformin, lisinopril and tape. 2-3 alcoholic drinks weekly. She states she does smoke regularly. Denies recreational drugs besides marijuana. Primary care is Shikha Swartz. Related Data Home Medications Medication Instructions Recorded Confirmed liraglutide 0.6 mg/0.1 mL (18 mg/3 1.8 mg SUBCUT DAILY 09/18/18 10/16/23 mL) subcutaneous pen injector (Victoza 2-Leroy) loperamide 2 mg capsule 2 mg PO BID PRN Diarrhea 09/18/18 10/16/23 atorvastatin 20 mg tablet 20 mg PO DAILY 01/10/19 10/16/23 lisinopril 2.5 mg tablet 20 mg PO DAILY 01/10/19 10/16/23 albuterol sulfate 90 mcg/actuation 1 inhalation inhalation PRN PRN 08/11/20 10/16/23 aerosol inhaler (Proventil HFA) Wheezing diphenhydramine HCl 25 mg capsule 25 mg PO BEDTIME 08/11/20 10/16/23 (Allergy (diphenhydramine)) melatonin 5 mg capsule 5 mg PO DAILY 08/11/20 10/16/23 multivitamin 1 cap PO DAILY 08/11/20 10/16/23 pantoprazole 20 mg tablet,delayed 20 mg PO DAILY 08/11/20 10/16/23 release acetaminophen 500 mg tablet 1,000 mg PO DAILY 08/24/20 10/16/23 (Tylenol Extra Strength) nitroglycerin 0.4 mg sublingual 0.4 mg sublingual Q5MP PRN Chest 10/16/23 10/16/23 tablet (Nitrostat) Pain Previous Rx's Medication Instructions Recorded promethazine 25 mg tablet 25 mg PO TID PRN nausea and 06/16/22 vomiting #10 tabs epinephrine 0.3 mg/0.3 mL 0.3 mg (0.3 mL) IM Q5-15M PRN 01/12/23 injection, auto-injector anaphylaxis #2 ea levofloxacin 250 mg tablet 250 mg PO DAILY #2 tabs 10/17/23 ondansetron 4 mg disintegrating 4 mg PO Q8H PRN nausea and 10/17/23 tablet vomiting #10 tabs Allergies Allergy/AdvReac Type Severity Reaction Status Date / Time lisinopril Allergy Severe Anaphylaxis Verified 10/16/23 20:17 adhesive [ADHESIVE] Allergy Intermediate RASH Verified 01/12/23 10:38 metformin [METFORMIN] AdvReac Intermediate VOMITING/DI Verified 01/12/23 10:38 ARRHEA codeine [CODEINE] AdvReac Mild VOMITING Verified 01/12/23 10:38 Review of Systems Review of Systems ROS Unobtainable: All systems reviewed & are unremarkable except as noted in HPI and below Patient History Medical History Chest pain Endometriosis History of TIA (transient ischemic attack) Obstructive sleep apnea on CPAP GERD (gastroesophageal reflux disease) History of adenomatous polyp of colon Pyloric channel ulcer Weight loss Epigastric pain Bowel and bladder incontinence Arthritis COPD (chronic obstructive pulmonary disease) Chronic pain Anxiety Fibromyalgia Hyperlipidemia HTN (hypertension) Diabetes Surgical History History of appendectomy History of tonsillectomy History of esophagogastroduodenoscopy (EGD) (~07/2020) History of colonoscopy (~07/2020) Hx of hysterectomy Family History Grandfather Hypertension Heart disease Diabetes mellitus Grandmother Diabetes mellitus Hypertension Heart disease Mother Ovarian cancer Social History marital status: unknown household members: none Smoking Status: Current every day smoker alcohol intake: current substance use type: marijuana Smoking Status: Current every day smoker tobacco type: cigarettes alcohol intake frequency: a few times a week Substance Use Type: marijuana Exam Narrative Exam Narrative: GEN: Female, alert and oriented x 3, patient appears to be in moderate distress. HEENT: Atraumatic, pupils are equal round reactive to light, extraocular movements are intact, nares are clear, there is no conjunctival pallor. Throat is clear without any exudates, erythema, tonsillar enlargement or uvular deviation HEART: Tachycardic but Regular rate and rhythm without murmur, clicks, rubs. Pulses are equal in upper and lower extremities. No edema bilateral lower extremities. LUNGS:Lungs clear to auscultation, no wheezes, rales, crackles, chest moves symmetrically, no tachypnea currently. Patient is eating some ice chips on evaluation but this is after fluids and Ativan. ABD:bowel sounds normal, soft, non-tender, no guarding, rebound, rigidity, no masses noted, no hepatosplenomegaly :No CVA tenderness MSCL: Non-tender, no muscle atrophy, muscles strength 5/5 upper and lower extremities, full range of motion, normal gait NEURO:CN 2-12 intact, sensation normal SKIN: No rash, erythema or other skin changes Initial Vital Signs Initial Vital Signs: Vital Signs Pulse Rate 110 H 10/16/23 13:40 Respiratory Rate 32 H 10/16/23 13:40 Blood Pressure 170/78 H 10/16/23 13:40 Pulse Oximetry 98 10/16/23 13:40 Oxygen Delivery Method Room Air 10/16/23 13:40 Course Orders Ordered: Discontinued Medications Acetaminophen (Acetaminophen 325 Mg Tablet) 650 mg PO Q6H [facility] Last Admin: 10/17/23 07:57 Dose: 650 mg Documented By: Admin: 10/17/23 01:31 Dose: 650 mg Documented By: Admin: 10/16/23 20:09 Dose: Not Given Documented By: KINGSLEY Enoxaparin Sodium (Enoxaparin 40 Mg/0.4 Ml Syringe) 40 mg SUBCUT DAILY LUCIA Last Admin: 10/17/23 08:10 Dose: 40 mg Documented By: DOMINGA Sodium Chloride (Normal Saline 0.9%) 1,000 mls @ 1,000 mls/hr IV BOLUS ONE Stop: 10/16/23 14:57 Last Infusion: 10/16/23 15:19 Dose: Infused Documented By: Admin: 10/16/23 14:15 Dose: 1,000 mls/hr Documented By: JONAS Sodium Chloride (Normal Saline 0.9%) 2,381.37 mls @ 793.79 mls/hr 30 ml/kg infuse over 3 hr (2381.37 ml) IV NOW ONE Stop: 10/16/23 18:08 Last Infusion: 10/16/23 18:10 Dose: Infused Documented By: Admin: 10/16/23 15:33 Dose: 793.79 mls/hr Documented By: SOMMER Ceftriaxone Sodium 1,000 mg/ (Sodium Chloride) 100 mls @ 200 mls/hr IV NOW ONE Stop: 10/16/23 17:05 Last Infusion: 10/16/23 18:10 Dose: Infused Documented By: Admin: 10/16/23 17:24 Dose: 200 mls/hr Documented By: JONAS Lactated Ringer's (Lactated Ringers) 1,000 mls @ 150 mls/hr IV CONT LUCIA Last Admin: 10/17/23 08:51 Dose: 150 mls/hr Documented By: Infusion: 10/17/23 08:42 Dose: Infused Documented By: Admin: 10/17/23 02:01 Dose: 150 mls/hr Documented By: Infusion: 10/17/23 02:01 Dose: Infused Documented By: Admin: 10/16/23 19:50 Dose: 150 mls/hr Documented By: KECIA Ceftriaxone Sodium 1,000 mg/ (Sodium Chloride) 100 mls @ 200 mls/hr IV Q24H LUCIA Dextrose (D10w) 100 mls @ 1,200 mls/hr IV PRN PRN PRN Reason: Hypoglycemia Insulin Human Lispro (Insulin Lispro 100 Unit/Ml 3ml Vial) 0 unit SUBCUT [facility]; Protocol Last Admin: 10/17/23 07:57 Dose: 3 unit Documented By: DOMINGA Co-signed By: SARAH Admin: 10/16/23 21:25 Dose: Not Given Documented By: KINGSLEY Ketorolac Tromethamine (Ketorolac 30 Mg/Ml Vial) 15 mg IV NOW ONE Stop: 10/16/23 15:09 Last Admin: 10/16/23 15:33 Dose: 15 mg Documented By: SOMMER Lorazepam (Lorazepam 2 Mg/Ml Inj) 0.5 mg IV NOW ONE Stop: 10/16/23 14:05 Last Admin: 10/16/23 14:15 Dose: 0.5 mg Documented By: JONAS Lorazepam (Lorazepam 2 Mg/Ml Inj) 0.5 mg IV NOW ONE Stop: 10/16/23 14:06 Last Admin: 10/16/23 14:07 Dose: Not Given Documented By: OVIDIO Ondansetron HCl (Ondansetron 4 Mg/2 Ml Inj) 4 mg IV NOW PRN PRN Reason: Nausea And Vomiting Ondansetron HCl (Ondansetron 4 Mg Odt) 4 mg SL NOW PRN PRN Reason: Nausea And Vomiting Ondansetron HCl (Ondansetron 4 Mg/2 Ml Inj) 4 mg IV Q8HR PRN PRN Reason: Nausea And Vomiting Last Admin: 10/16/23 19:50 Dose: 4 mg Documented By: KECIA Ondansetron HCl (Ondansetron 4 Mg/2 Ml Inj) 4 mg IV Q2H PRN PRN Reason: Nausea And Vomiting Ondansetron HCl (Ondansetron 4 Mg/2 Ml Inj) 4 mg IV Q4HR PRN PRN Reason: Nausea And Vomiting Last Admin: 10/17/23 07:57 Dose: 4 mg Documented By: Admin: 10/17/23 03:00 Dose: 4 mg Documented By: KINGSLEY Pantoprazole Sodium (Pantoprazole 40 Mg Vial) 40 mg IV NOW ONE Stop: 10/16/23 15:09 Last Admin: 10/16/23 15:33 Dose: 40 mg Documented By: SOMMER Pantoprazole Sodium (Pantoprazole 40 Mg Vial) 40 mg IV DAILY [facility] Last Admin: 10/17/23 08:10 Dose: 40 mg Documented By: DOMINGA Potassium Chloride (Potassium Chloride 20 Meq Tab) 40 meq PO Q6H LUCIA Stop: 10/17/23 15:31 Last Admin: 10/17/23 09:41 Dose: 40 meq Documented By: DOMINGA Vital Signs Vital signs: Vital Signs - 8 hr 10/16/23 13:40 10/16/23 15:37 10/16/23 15:45 Pulse Rate 110 H 116 H 117 H Respiratory Rate 32 H 38 H 43 H Blood Pressure 170/78 H Pulse Oximetry 98 96 96 Oxygen Delivery Method Room Air 10/16/23 16:00 10/16/23 16:00 10/16/23 16:15 Pulse Rate 111 H 112 H Respiratory Rate 54 H 46 H Blood Pressure 157/79 H Pulse Oximetry 95 95 Oxygen Delivery Method 10/16/23 16:30 10/16/23 16:45 Pulse Rate 105 H 106 H Respiratory Rate 26 H 35 H Blood Pressure Pulse Oximetry 96 95 Oxygen Delivery Method Room Air MDM - Nausea/Vomiting/Diarrhea Lab Data 10/17/23 04:59 10/17/23 04:59 Labs: Lab Results 10/16/23 10/16/23 10/16/23 Range/Units 13:48 14:02 14:04 WBC 15.2 H (4.5-11.0) X10^3/uL RBC 5.00 (4.0-5.2) X10^6/uL Hgb 16.0 (12.0-16.0) g/dL Hct 46.3 H (36-46) % MCV 92.8 (80-100) fL MCH 32.1 (26-34) PG MCHC 34.6 (30-36) % RDW 14.0 (11.6-14.8) % Plt Count 386 (150-400) X10^3/uL Neut % (Auto) 78.0 H (50-75) % Lymph % (Auto) 14.8 L (25-40) % Lincoln % (Auto) 5.8 (3-14) % Eos % (Auto) 0.0 L (2-4) % Baso % (Auto) 1.4 (0-2) % Neut # (Auto) 08303 H (8485-3974) /uL Lymph # (Auto) 2300 (9532-6358) /uL Lincoln # (Auto) 900 (0-900) /uL Eos # (Auto) 0 (0-450) /uL Baso # (Auto) 200 H (0-100) /uL PT 11.8 (10.1-12.7) SECONDS INR 1.0 (0.9-1.3) APTT 26 (25.1-36.5) SECONDS VBG pH 7.60 H (7.33-7.43) VBG pCO2 25.6 L (45-50) mmHg VBG pO2 25 L (35-45) mmHg VBG HCO3 25 (24-28) mmol/L VBG Total CO2 26 (24-29) mmol/L VBG O2 Saturation 61 L (70-75) % VBG Base Excess 4.0 (0-4) mmol/L FiO2 28 Sodium 135 L (137-145) mmol/L Potassium 3.8 (3.4-5.1) mmol/L Chloride 88 L (98-107) mmol/L Carbon Dioxide 29 (22-32) mmol/L BUN 9 (7-17) mg/dL Creatinine 0.68 (0.52-1.04) mg/dL Estimated GFR > 60 (>60) mL/min BUN/Creatinine Ratio 13.2 (6-22) Glucose 383 H (70-100) mg/dL Lactate 5.1 H* (0.7-2.1) mmol/L Calcium 10.2 (8.4-10.2) mg/dL Total Bilirubin 0.9 (0.2-1.3) mg/dL AST 38 H (14-36) IU/L ALT 77 H (<35) IU/L Alkaline Phosphatase 134 H (38-126) U/L Total Creatine Kinase 67 (30-135) U/L Troponin I < 0.012 (0.01-0.034) ng/mL Total Protein 8.9 H (6.3-8.2) g/dL Albumin 5.0 (3.5-5.0) g/dL Globulin 3.9 (1.7-4.1) g/dL Albumin/Globulin Ratio 1.3 (1.0-2.8) Lipase 115 (23-300) U/L Procalcitonin 0.06 (<0.5) ng/mL Urine RBC (0-5/HPF) Urine WBC (0-5/HPF) Ur Squamous Epith Cells (0-5/HPF) Urine Bacteria (None) Ur Culture Indicated? Ketones 2.27 H (<0.27) mmol/L Chlamy pneumoniae PCR Not detected (Not Detect) Adenovirus (PCR) Not detected (Not Detect) B.parapertussis DNA PCR Not detected (Not Detecte) Coronavirus OC43 (PCR) Not detected (Not Detect) Coronavirus HKU1 (PCR) Not detected (Not Detect) Coronavirus 229E (PCR) Not detected (Not Detect) SARS-CoV-2 (PCR) Not detected (Not Detecte) Coronavirus NL63 (PCR) Not detected (Not Detect) Human Metapneumovir PCR Not detected (Not Detect) Influenza Type A (PCR) Not detected (Not Detect) Influenza Type B (PCR) Not detected (Not Detect) M. pneumoniae (PCR) Not detected (Not Detect) Parainfluenza 1 (PCR) Not detected (Not Detect) Parainfluenza 2 (PCR) Not detected (Not Detect) Parainfluenza 3 (PCR) Not detected (Not Detect) Parainfluenza 4 (PCR) Not detected (Not Detect) RSV (PCR) Not detected (Not Detect) Entero/Rhino (PCR) Not detected (Not Detect) 10/16/23 10/16/23 Range/Units 15:34 15:46 WBC (4.5-11.0) X10^3/uL RBC (4.0-5.2) X10^6/uL Hgb (12.0-16.0) g/dL Hct (36-46) % MCV (80-100) fL MCH (26-34) PG MCHC (30-36) % RDW (11.6-14.8) % Plt Count (150-400) X10^3/uL Neut % (Auto) (50-75) % Lymph % (Auto) (25-40) % Lincoln % (Auto) (3-14) % Eos % (Auto) (2-4) % Baso % (Auto) (0-2) % Neut # (Auto) (8170-5795) /uL Lymph # (Auto) (9700-6198) /uL Lincoln # (Auto) (0-900) /uL Eos # (Auto) (0-450) /uL Baso # (Auto) (0-100) /uL PT (10.1-12.7) SECONDS INR (0.9-1.3) APTT (25.1-36.5) SECONDS VBG pH (7.33-7.43) VBG pCO2 (45-50) mmHg VBG pO2 (35-45) mmHg VBG HCO3 (24-28) mmol/L VBG Total CO2 (24-29) mmol/L VBG O2 Saturation (70-75) % VBG Base Excess (0-4) mmol/L FiO2 Sodium (137-145) mmol/L Potassium (3.4-5.1) mmol/L Chloride (98-107) mmol/L Carbon Dioxide (22-32) mmol/L BUN (7-17) mg/dL Creatinine (0.52-1.04) mg/dL Estimated GFR (>60) mL/min BUN/Creatinine Ratio (6-22) Glucose (70-100) mg/dL Lactate 4.7 H* (0.7-2.1) mmol/L Calcium (8.4-10.2) mg/dL Total Bilirubin (0.2-1.3) mg/dL AST (14-36) IU/L ALT (<35) IU/L Alkaline Phosphatase (38-126) U/L Total Creatine Kinase 64 (30-135) U/L Troponin I < 0.012 (0.01-0.034) ng/mL Total Protein (6.3-8.2) g/dL Albumin (3.5-5.0) g/dL Globulin (1.7-4.1) g/dL Albumin/Globulin Ratio (1.0-2.8) Lipase (23-300) U/L Procalcitonin (<0.5) ng/mL Urine RBC 0-1/hpf (0-5/HPF) Urine WBC 0-1/hpf (0-5/HPF) Ur Squamous Epith Cells 1-5 /hpf (0-5/HPF) Urine Bacteria Moderate (10-30) H (None) Ur Culture Indicated? Specimen cultured Ketones (<0.27) mmol/L Chlamy pneumoniae PCR (Not Detect) Adenovirus (PCR) (Not Detect) B.parapertussis DNA PCR (Not Detecte) Coronavirus OC43 (PCR) (Not Detect) Coronavirus HKU1 (PCR) (Not Detect) Coronavirus 229E (PCR) (Not Detect) SARS-CoV-2 (PCR) (Not Detecte) Coronavirus NL63 (PCR) (Not Detect) Human Metapneumovir PCR (Not Detect) Influenza Type A (PCR) (Not Detect) Influenza Type B (PCR) (Not Detect) M. pneumoniae (PCR) (Not Detect) Parainfluenza 1 (PCR) (Not Detect) Parainfluenza 2 (PCR) (Not Detect) Parainfluenza 3 (PCR) (Not Detect) Parainfluenza 4 (PCR) (Not Detect) RSV (PCR) (Not Detect) Entero/Rhino (PCR) (Not Detect) Point of Care Testing Glucose POC 241 Urine Dip Bedside Urine Glucose 500 mg/dl Bedside Urine Bilirubin - Negative Bedside Urine Ketone ++ 40 Urine Specific [employer] 1.015 Bedside Urine Occult Blood - Negative Bedside Urine pH 7 Bedside Urine Protein + 30 Bedside Urine Urobilinogen - Negative Bedside Urine Nitrite - Negative Bedside Urine Leukocytes - Negative Esterase Imaging Data Chest x-ray: Radiologist's Impression: Rachana Paz??53??F??1970 ? Allergy/Adv: adhesive, metformin, codeine (More??) Close Abdomen/Pelvis CT (Signed) Joseph Black - 10/16/23 Chest X-Ray (Signed) Jameel Graves - 10/16/23 Myocardial Perfusion Scan Nuc Med (Signed) Ele Murphy - 10/02/23 Echocardiogram Ultrasound (Signed) Ele Murphy - 10/02/23 Lumbar Spine MRI (Signed) Ghassan Morales - 09/15/22 Hip X-Ray (Signed) Keri Benites - 08/14/22 Mammogram Screening (Signed) Santo Skinner - 08/01/22 Chest X-Ray (Signed) Getachew David - 06/16/22 Abdomen/Pelvis CT (Signed) Marylin Salgado - 06/09/21 Modified Barium Swallow (Signed) Ke Cerda - 04/14/21 Gastric Emptying Nuclear Medicine (Signed) Marylin Salgado - 03/25/[address] (Signed) You Pickard - 09/13/20 Telemetry Strips 08/24/20 Chest CTA (Signed) Zo Moralesic - 07/30/20 Chest X-Ray (Signed) Amy Gomez - 07/30/20 Lumbar Spine MRI (Signed) AndrewHemantGhassan - 05/07/20 Hip MRI (Signed) You Pickard - 04/07/[address] (Signed) EdilsonMartir - 08/03/[address] (Signed) Martir Waggoner - 08/03/19 Brain MRI (Signed) Ericka Merrill - 03/11/19 KUB X-Ray (Signed) Marylin Salgado - 12/24/18 Chest X-Ray (Signed) Patricia,Amy - 09/18/18 Chest CTA (Signed) Keri Benites - 06/15/18 Chest X-Ray (Signed) Keri Benites - 06/15/18 Mammogram Screening (Signed) Krishna Jackson - 03/29/18 Telemetry Strips 09/14/16 Launch?Image [address] [address] XRay Report Signed Patient: Rachana Paz MR#: [id number] : 1970 Acct:[id number] Age/Sex: 53 / F Date of Service: 10/16/23 Loc: ED Accession Number: [id number] Procedure: XR chest 1V Ordering Provider: Annamarie Quispe D.O. PROCEDURE: XR CHEST 1V INDICATIONS: suspected sepsis TECHNIQUE: One view of the chest was acquired. COMPARISON: [facility], , XR CHEST 1V, 06/16/2022, 16:19. FINDINGS: Surgical changes and devices: None. Lungs and pleura: Lungs are clear. No pleural effusions or pneumothorax. Mediastinum: Mediastinal contours appear normal. Heart size is normal. Bones and chest wall: No suspicious bony lesions. Overlying soft tissues appear unremarkable. IMPRESSION: No acute cardiopulmonary abnormality is seen. Approved by: Jameel Graves M.D. on 10/16/2023 at 14:24 CT scan - abdomen/pelvis: Radiologist's Impression: Close Abdomen/Pelvis CT (Signed) Joseph Black - 10/16/23 Chest X-Ray (Signed) Jameel Graves - 10/16/23 Myocardial Perfusion Scan Nuc Med (Signed) Ele Murphy - 10/02/23 Echocardiogram Ultrasound (Signed) Ele Murphy - 10/02/23 Lumbar Spine MRI (Signed) Ghassan Morales - 09/15/22 Hip X-Ray (Signed) Keri Benites - 08/14/22 Mammogram Screening (Signed) Santo Skinner - 08/01/22 Chest X-Ray (Signed) JoannGetachew - 06/16/22 Abdomen/Pelvis CT (Signed) Marylin Salgado - 06/09/21 Modified Barium Swallow (Signed) Ke Cerda - 04/14/21 Gastric Emptying Nuclear Medicine (Signed) NaomiRosajame - 03/25/[address] (Signed) You Pickard - 09/13/20 Telemetry Strips 08/24/20 Chest CTA (Signed) Ghassan Morales - 07/30/20 Chest X-Ray (Signed) Amy Gomez - 07/30/20 Lumbar Spine MRI (Signed) Ghassan Morales - 05/07/20 Hip MRI (Signed) You Pickard - 04/07/[address] (Signed) Martir Waggoner - 08/03/[address] (Signed) Martir Waggoner - 08/03/19 Brain MRI (Signed) Ericka Merrill - 03/11/19 KUB X-Ray (Signed) Marylin Salgado - 12/24/18 Chest X-Ray (Signed) Amy Gomez - 09/18/18 Chest CTA (Signed) Keri Benites - 06/15/18 Chest X-Ray (Signed) Keri Benites - 06/15/18 Mammogram Screening (Signed) Krishna Jackson - 03/29/18 Telemetry Strips 09/14/[address] [address] [address] Scan Report Signed Patient: Rachana Paz MR#: [id number] : 1970 Acct:[id number] Age/Sex: 53 / F Date of Service: 10/16/23 Loc: ED Accession Number: [id number] Procedure: CT abdomen pelvis w con Ordering Provider: Annamarie Quispe D.O. PROCEDURE: CT ABDOMEN PELVIS W CON INDICATIONS: n/v, x 3 days, no BM, decreased flatus TECHNIQUE: After the administration of IV contrast, axial sections were acquired from the lung bases to the pubic symphysis. Coronal and sagittal reformats were performed. For radiation dose reduction, the following was used: automated exposure control, adjustment of mA and/or kV according to patient size. COMPARISON: [facility], CT, CT ABDOMEN PELVIS W CON, 06/09/2021, 13:38. FINDINGS: Image quality: Excellent. Lung bases: Unremarkable. Heart: No significant findings. ABDOMEN: Liver: No solid mass. Fluid attenuating cystic lesion in segment 6 of the liver, stable from prior. Low attenuation of the liver, suggestive of hepatic steatosis. Gallbladder: Gallbladder sludge versus small stones. No wall thickening or pericholecystic edema to suggest acute cholecystitis. Biliary ducts: No biliary dilation. Pancreas: No ductal dilation. Spleen: Size is within normal limits. Adrenal Glands: No adrenal nodules. Mild nodular thickening. Kidneys and Ureters: No hydronephrosis. No solid mass. No complex renal cystic lesion which requires follow up. Stomach and Bowel: Normal colonic caliber, without significant wall thickening. Appendectomy. No evidence of obstruction. Peritoneum: No abnormal intraperitoneal fluid. No free air. Ventral Wall: Small ventral hernia containing fat. Abdominal Nodes: No retroperitoneal or mesenteric adenopathy by size criteria. Vessels: Aorta and inferior vena cava are normal in size. PELVIS: Pelvic Organs: Unremarkable. Bladder: Unremarkable. Pelvic Nodes: Slight interval growth of a mesorectal lymph node measuring 6 millimeter short axis, previously 2 millimeters. Miscellaneous: No inguinal hernias are seen. Bones: Unremarkable. IMPRESSION: No findings to explain the patient's symptoms. No evidence of bowel obstruction. Slight interval growth of a mesorectal lymph node, still not enlarged by size criteria. Consider outpatient screening colonoscopy if not up-to-date, to exclude an early, underlying rectal mass. Dictated by: Joseph Black M.D. on 10/16/2023 at 15:48 Approved by: Joseph Black M.D. on 10/16/2023 at 15:52 ECG Data Attestation: I personally reviewed and interpreted this ECG as follows: Prior ECG tracings: available for review Interpretation: Sinus tachycardia rate of 108 MN 176 QRS 82 QTC 484. No acute ST elevation appreciated. Patient has sloping T-waves V4 and V6 with little depression in V5. No other significant ST changes appreciated patient's EKG from 01/11/2023 does not show similar but EKG from 06/16/2022 does. Patient on that visit was here for abdominal pain and ETOH use. MDM Narrative Medical decision making narrative: 53-year-old female comes in tachycardic, tachypneic, hypertensive but not hypoxic. She is had nausea and vomiting without bowel movement and decreased flatus for the past 3 days. Patient is a diabetic on oral medications. Glucose is elevated in the 383 range, she has a white count of 15, lactate 5.1 protocol is negative. Hemoglobin 16 with a crit of 46 BUN is not elevated with normal creatinine. Sodium is 135 potassium 3.8, AST ALT alk-phos slightly elevated at 38, 77 and 134 negative bilirubin, lipase is negative. Troponin is negative. Patient's EKG shows little change from prior EKG but similar to the EKG from that before. Patient has had some cardiac history but seems to be more abdominal related. Patient is positive ketones 2.27. Respiratory panel shows is negative. UA shows moderate bacteria, 0-1 white cells, 0-1 red cells, 1-5 squamous epithelials. Positive for protein no nitrates no leuks. Positive for ketones. Patient covered for potential UTI with Rocephin. Chest x-ray shows no significant change on chest x-ray. Plan for CT abdomen pelvis with persistent nausea or vomiting without diarrhea, no bowel movements and decreased flatus. CT abdomen pelvis showed mesenteric lymph node but no other acute change. Patient was given fluids, antiemetics, she does not appear to be in DKA with VBG showing alkalosis at 7.604 pCO2 of 25 were PO2 of 25 bicarb of 25. Patient has had some persistent tachycardia she is completed 1 L giving a 2nd, total 30 cc/kilos bolus would be 2.1 L. On recheck tachycardia is improving although still slightly elevated, lactate came down to 4 but is still elevated despite 2 L, patient is started L has been started. Patient feels improved has tolerated some ice chips. Spoke with Dr. Morrissey, I would expect patient's lactate to improve quickly, she is tolerating ice chips she does appear somewhat clinically improved but concern for her white count, elevated lactate and some persistent tachycardia despite 2 L at the 105 range. He accepts for admission. Discharge Plan Departure Patient Disposition: Admitted As Inpatient Clinical Impression: Nausea & vomiting, Acidosis, lactic, Hyperglycemia Admit Date/Time: 10/16/23 18:05 Admit Provider: Rob Samaniego
[2023-10-16 15:09] LABS: Ketones (Beta-Hydroxybutyrate) 2.27 mmol/L (<0.27)
--- NOTE | 2023-10-16 15:14 | DI.CT.S_ITS ---
PROCEDURE: CT ABDOMEN PELVIS W CON INDICATIONS: n/v, x 3 days, no BM, decreased flatus TECHNIQUE: After the administration of IV contrast, axial sections were acquired from the lung bases to the pubic symphysis. Coronal and sagittal reformats were performed. For radiation dose reduction, the following was used: automated exposure control, adjustment of mA and/or kV according to patient size. COMPARISON: [facility], CT, CT ABDOMEN PELVIS W CON, 06/09/2021, 13:38. FINDINGS: Image quality: Excellent. Lung bases: Unremarkable. Heart: No significant findings. ABDOMEN: Liver: No solid mass. Fluid attenuating cystic lesion in segment 6 of the liver, stable from prior. Low attenuation of the liver, suggestive of hepatic steatosis. Gallbladder: Gallbladder sludge versus small stones. No wall thickening or pericholecystic edema to suggest acute cholecystitis. Biliary ducts: No biliary dilation. Pancreas: No ductal dilation. Spleen: Size is within normal limits. Adrenal Glands: No adrenal nodules. Mild nodular thickening. Kidneys and Ureters: No hydronephrosis. No solid mass. No complex renal cystic lesion which requires follow up. Stomach and Bowel: Normal colonic caliber, without significant wall thickening. Appendectomy. No evidence of obstruction. Peritoneum: No abnormal intraperitoneal fluid. No free air. Ventral Wall: Small ventral hernia containing fat. Abdominal Nodes: No retroperitoneal or mesenteric adenopathy by size criteria. Vessels: Aorta and inferior vena cava are normal in size. PELVIS: Pelvic Organs: Unremarkable. Bladder: Unremarkable. Pelvic Nodes: Slight interval growth of a mesorectal lymph node measuring 6 millimeter short axis, previously 2 millimeters. Miscellaneous: No inguinal hernias are seen. Bones: Unremarkable. IMPRESSION: No findings to explain the patient's symptoms. No evidence of bowel obstruction. Slight interval growth of a mesorectal lymph node, still not enlarged by size criteria. Consider outpatient screening colonoscopy if not up-to-date, to exclude an early, underlying rectal mass. Dictated by: Joseph Black M.D. on 10/16/2023 at 15:48 Approved by: Joseph Black M.D. on 10/16/2023 at 15:52
[2023-10-16 15:26] LABS: Adenovirus Not Detected (Not Detect); B. parapertussis Not Detected (Not Detecte); Bordetella pertussis Not Detected (Not Detect); Chlamydophila pneumoniae Not Detected (Not Detect); Coronavirus 229E Not Detected (Not Detect); Coronavirus HKU1 Not Detected (Not Detect); Coronavirus NL 63 Not Detected (Not Detect); Coronavirus OC43 Not Detected (Not Detect); Human Metapneumovirus Not Detected (Not Detect); Human Rhinovirus/Enterovirus Not Detected (Not Detect); Influenza A Not Detected (Not Detect); Influenza B Not Detected (Not Detect); Mycoplasma pneumoniae Not Detected (Not Detect); Parainfluenza Virus 1 Not Detected (Not Detect); Parainfluenza Virus 2 Not Detected (Not Detect); Parainfluenza Virus 3 Not Detected (Not Detect); Parainfluenza Virus 4 Not Detected (Not Detect); Respiratory Syncytial Virus Not Detected (Not Detect); SARS- CoV-2 Not Detected (Not Detecte)
[2023-10-16] MEDS: PANTOPRAZOLE 40 MG VIAL IV (15:33)
[2023-10-16] MEDS: SODIUM CHLORIDE 0.9% 2,381.37 ML 793.79 ML IV (15:33)
[2023-10-16] MEDS: KETOROLAC 30 MG/ML VIAL 15 MG IV (15:33)
[2023-10-16 16:11] LABS: Creatine Kinase 64 U/L (30-135)
[2023-10-16 16:24] LABS: Troponin I < 0.012 ng/mL (0.01-0.034)
[2023-10-16 16:25] LABS: Reflexed Lactate in 2 Hours Y
[2023-10-16 16:39] LABS: Lactate 2HR (Lactic Acid Rflx) 4.7 mmol/L (0.7-2.1)
[2023-10-16 16:55] LABS: Bacteria Urine Moderate (10-30); RBC Urine 0-1/HPF (0-5/HPF); Squamous Epithelial Cell Urine 1-5 /HPF (0-5/HPF); WBC Urine 0-1/HPF (0-5/HPF)
[2023-10-16 16:56] LABS: Culture Indicated Urine Specimen Cultured
[2023-10-16] MEDS: cefTRIAXone 1,000 MG in SODIUM CHLORIDE 0.9% 100 ML 200 MG IV (17:24)
--- NOTE | 2023-10-16 18:58 | PC.NURSE ---
pt received from ED. Alert and oriented. Tucked in to bed. Vitals done. Oriented to call light.
[2023-10-16] MEDS: ONDANSETRON 4 MG/2 ML INJ IV (19:50)
[2023-10-16] MEDS: LACTATED RINGERS 1,000 ML 150 ML IV (19:50)
--- NOTE | 2023-10-16 20:56 | P.HP_ITS ---
History of Present Illness History of Present Illness Date Patient Seen: 10/16/23 Time Patient Seen: 17:00 Chief complaint: vomiting 3 day Narrative: Ms. Paz is a 53W with PMH GERD, COPD, HTN, DENIZ, DM who presents to the hospital with nausea and vomiting. She ran out of her medication for GERD a few days ago. She started experiencing reflux and heartburn. This progressed to nausea, vomiting, and abdominal pain. She has not had diarrhea. No blood noted. In the ED workup was done, vitals notable for afebrile, tachycardic, tachypneic. Labs reviewed and notable for WBC 15.2, plts 386. Na 135, creatinine 0.68. Lactate 5.1. Ketones 2.27. Vbg ph 7.60. Urine noted bacteria and no WBCs. She was given IV fluids and lactate improved only slightly to 4.7. Chest xray with no acute process. CT abdomen with lymph node noted perirectally. She was admitted for further treatment. FORMERLY [facility], [facility]–1983 Medical History Chest pain Endometriosis History of TIA (transient ischemic attack) Obstructive sleep apnea on CPAP GERD (gastroesophageal reflux disease) History of adenomatous polyp of colon Pyloric channel ulcer Weight loss Epigastric pain Bowel and bladder incontinence Arthritis COPD (chronic obstructive pulmonary disease) Chronic pain Anxiety Fibromyalgia Hyperlipidemia HTN (hypertension) Diabetes Surgical History History of appendectomy History of tonsillectomy History of esophagogastroduodenoscopy (EGD) (~07/2020) History of colonoscopy (~07/2020) Hx of hysterectomy Family History Grandfather Hypertension Heart disease Diabetes mellitus Grandmother Diabetes mellitus Hypertension Heart disease Mother Ovarian cancer Social History marital status: unknown household members: none Smoking Status: Current every day smoker alcohol intake: current substance use type: marijuana Meds Home Medications and Allergies Home Medications Medication Instructions Recorded Confirmed Type liraglutide 0.6 mg/0.1 mL (18 mg/3 1.8 mg SUBCUT DAILY 09/18/18 10/16/23 History mL) subcutaneous pen injector (Victoza 2-Leroy) loperamide 2 mg capsule 2 mg PO BID PRN Diarrhea 09/18/18 10/16/23 History atorvastatin 20 mg tablet 20 mg PO DAILY 01/10/19 10/16/23 History lisinopril 2.5 mg tablet 20 mg PO DAILY 01/10/19 10/16/23 History albuterol sulfate 90 mcg/actuation 1 inhalation inhalation PRN PRN 08/11/20 10/16/23 History aerosol inhaler (Proventil HFA) Wheezing diphenhydramine HCl 25 mg capsule 25 mg PO BEDTIME 08/11/20 10/16/23 History (Allergy (diphenhydramine)) melatonin 5 mg capsule 5 mg PO DAILY 08/11/20 10/16/23 History multivitamin 1 cap PO DAILY 08/11/20 10/16/23 History pantoprazole 20 mg tablet,delayed 20 mg PO DAILY 08/11/20 10/16/23 History release acetaminophen 500 mg tablet 1,000 mg PO DAILY 08/24/20 10/16/23 History (Tylenol Extra Strength) promethazine 25 mg tablet 25 mg PO TID PRN nausea and 06/16/22 10/16/23 Rx vomiting #10 tabs epinephrine 0.3 mg/0.3 mL 0.3 mg (0.3 mL) IM Q5-15M PRN 01/12/23 10/16/23 Rx injection, auto-injector anaphylaxis #2 ea nitroglycerin 0.4 mg sublingual 0.4 mg sublingual Q5MP PRN Chest 10/16/23 10/16/23 History tablet (Nitrostat) Pain Allergies Allergy/AdvReac Type Severity Reaction Status Date / Time lisinopril Allergy Severe Anaphylaxis Verified 10/16/23 20:17 adhesive [ADHESIVE] Allergy Intermediate RASH Verified 01/12/23 10:38 metformin [METFORMIN] AdvReac Intermediate VOMITING/DI Verified 01/12/23 10:38 ARRHEA codeine [CODEINE] AdvReac Mild VOMITING Verified 01/12/23 10:38 Review of Systems Review of Systems Narrative: 14 systems reviewed and negative aside from what is noted in HPI Exam Vital Signs (past 8 hours): - 10/16/23 13:40 10/16/23 15:37 10/16/23 15:45 Temperature Pulse Rate 110 H 116 H 117 H Respiratory Rate 32 H 38 H 43 H Blood Pressure 170/78 H Pulse Oximetry 98 96 96 Oxygen Delivery Method Room Air Oxygen Flow Rate 10/16/23 16:00 10/16/23 16:00 10/16/23 16:15 Temperature Pulse Rate 111 H 112 H Respiratory Rate 54 H 46 H Blood Pressure 157/79 H Pulse Oximetry 95 95 Oxygen Delivery Method Oxygen Flow Rate 10/16/23 16:30 10/16/23 16:45 10/16/23 17:00 Temperature Pulse Rate 105 H 106 H 104 H Respiratory Rate 26 H 35 H 22 Blood Pressure Pulse Oximetry 96 95 93 Oxygen Delivery Method Room Air Oxygen Flow Rate 10/16/23 17:17 10/16/23 17:19 10/16/23 17:19 Temperature Pulse Rate 118 H 114 H Respiratory Rate 16 Blood Pressure 151/90 H Pulse Oximetry 97 96 Oxygen Delivery Method Oxygen Flow Rate 10/16/23 17:30 10/16/23 17:45 10/16/23 18:00 Temperature Pulse Rate 111 H 102 H 105 H Respiratory Rate 22 28 H 25 H Blood Pressure Pulse Oximetry 97 93 93 Oxygen Delivery Method Room Air Oxygen Flow Rate 10/16/23 18:58 10/16/23 20:00 Temperature 98.2 F 97.6 F Pulse Rate 110 H 78 Respiratory Rate 17 16 Blood Pressure 148/92 H 126/82 Pulse Oximetry 97 96 Oxygen Delivery Method Oxygen Flow Rate 0 0 Oxygen Delivery Method Room Air Oxygen Flow Rate 0 Narrative Exam Narrative: GEN: no acute distress HEENT: dry mucous membranes CV: tachycardic, no murmurs PULM: clear bilaterally ABD: soft, nontender NEURO: no focal deficits Objective Labs 10/16/23 13:48 10/16/23 13:48 Labs: Laboratory Results - last 24 hr 10/16/23 10/16/23 10/16/23 13:48 14:02 14:04 WBC 15.2 H RBC 5.00 Hgb 16.0 Hct 46.3 H MCV 92.8 MCH 32.1 MCHC 34.6 RDW 14.0 Plt Count 386 Neut % (Auto) 78.0 H Lymph % (Auto) 14.8 L Faulk % (Auto) 5.8 Eos % (Auto) 0.0 L Baso % (Auto) 1.4 Neut # (Auto) 07294 H Lymph # (Auto) 2300 Faulk # (Auto) 900 Eos # (Auto) 0 Baso # (Auto) 200 H PT 11.8 INR 1.0 APTT 26 VBG pH 7.60 H VBG pCO2 25.6 L VBG pO2 25 L VBG HCO3 25 VBG Total CO2 26 VBG O2 Saturation 61 L VBG Base Excess 4.0 FiO2 28 Sodium 135 L Potassium 3.8 Chloride 88 L Carbon Dioxide 29 BUN 9 Creatinine 0.68 Estimated GFR > 60 BUN/Creatinine Ratio 13.2 Glucose 383 H Lactate 5.1 H* Calcium 10.2 Total Bilirubin 0.9 AST 38 H ALT 77 H Alkaline Phosphatase 134 H Total Creatine Kinase 67 Troponin I < 0.012 Total Protein 8.9 H Albumin 5.0 Globulin 3.9 Albumin/Globulin Ratio 1.3 Lipase 115 Procalcitonin 0.06 Urine RBC Urine WBC Ur Squamous Epith Cells Urine Bacteria Ur Culture Indicated? Ketones 2.27 H Chlamy pneumoniae PCR Not detected Adenovirus (PCR) Not detected B.parapertussis DNA PCR Not detected Coronavirus OC43 (PCR) Not detected Coronavirus HKU1 (PCR) Not detected Coronavirus 229E (PCR) Not detected SARS-CoV-2 (PCR) Not detected Coronavirus NL63 (PCR) Not detected Human Metapneumovir PCR Not detected Influenza Type A (PCR) Not detected Influenza Type B (PCR) Not detected M. pneumoniae (PCR) Not detected Parainfluenza 1 (PCR) Not detected Parainfluenza 2 (PCR) Not detected Parainfluenza 3 (PCR) Not detected Parainfluenza 4 (PCR) Not detected RSV (PCR) Not detected Entero/Rhino (PCR) Not detected 10/16/23 10/16/23 15:34 15:46 WBC RBC Hgb Hct MCV MCH MCHC RDW Plt Count Neut % (Auto) Lymph % (Auto) Faulk % (Auto) Eos % (Auto) Baso % (Auto) Neut # (Auto) Lymph # (Auto) Faulk # (Auto) Eos # (Auto) Baso # (Auto) PT INR APTT VBG pH VBG pCO2 VBG pO2 VBG HCO3 VBG Total CO2 VBG O2 Saturation VBG Base Excess FiO2 Sodium Potassium Chloride Carbon Dioxide BUN Creatinine Estimated GFR BUN/Creatinine Ratio Glucose Lactate 4.7 H* Calcium Total Bilirubin AST ALT Alkaline Phosphatase Total Creatine Kinase 64 Troponin I < 0.012 Total Protein Albumin Globulin Albumin/Globulin Ratio Lipase Procalcitonin Urine RBC 0-1/hpf Urine WBC 0-1/hpf Ur Squamous Epith Cells 1-5 /hpf Urine Bacteria Moderate (10-30) H Ur Culture Indicated? Specimen cultured Ketones Chlamy pneumoniae PCR Adenovirus (PCR) B.parapertussis DNA PCR Coronavirus OC43 (PCR) Coronavirus HKU1 (PCR) Coronavirus 229E (PCR) SARS-CoV-2 (PCR) Coronavirus NL63 (PCR) Human Metapneumovir PCR Influenza Type A (PCR) Influenza Type B (PCR) M. pneumoniae (PCR) Parainfluenza 1 (PCR) Parainfluenza 2 (PCR) Parainfluenza 3 (PCR) Parainfluenza 4 (PCR) RSV (PCR) Entero/Rhino (PCR) Assessment & Plan Assessment & Plan narrative: 1. Vomiting, nausea -suspect secondary to worsening GERD due to being off medications -continue PPI -possibly UTI is contributing, continue ceftriaxone, follow up urine culture -continue IV fluids -suspect elevated lactate secondary to hypovolemia, follow up repeat lactate -CT abdomen showed no acute process 2. Rectal lymph node -has had recent colonoscopy which removed polyps and she says she needs repeat in two years 3. DENIZ -ordered RT eval for CPAP I have discussed plan and obtained history from the patient. I have discussed plan of care with ED physician and bedside nurse. I have reviewed labs, imaging. CODE: Full Proxy: Alea Paz, daughter [facility] - Meds 'Current medications' to include all prescriptions, [id number] products, herbals, cannabis/cannabidiol products, and vitamin/mineral/dietary (nutritional) supplements. I have utilized all available resources to obtain, update, or review the patient?s current medications. [If Yes, STOP here]: Yes
[2023-10-17] VITALS: BP 118/68; PULSE 68; RESP 16; TEMP 36.5; O2SAT 96
[2023-10-17] MEDS: ACETAMINOPHEN 325 MG TABLET 650 MG PO ×2 (01:31→07:57)
[2023-10-17] MEDS: LACTATED RINGERS 1,000 ML 150 ML IV ×2 (02:01→08:51)
[2023-10-17] MEDS: ONDANSETRON 4 MG/2 ML INJ IV ×2 (03:00→07:57)
[2023-10-17 04:00] VITALS: BP 133/74; PULSE 74; RESP 16; TEMP 37.1; O2SAT 95
[2023-10-17 05:17] LABS: Add Manual Diff / Slide Review NO; Basophils Absolute Auto 200 /uL (0-100); Basophils Percent Auto 1.6 % (0-2); Eosinophils Absolute Auto 100 /uL (0-450); Eosinophils Percent Auto 0.4 % (2-4); Hematocrit 41.5 % (36-46); Hemoglobin 13.8 g/dL (12.0-16.0); Lymphocytes Absolute Auto 4400 /uL (1100-4500); Lymphocytes Percent Auto 32.1 % (25-40); Mean Corpuscular HGB Conc 33.2 % (30-36); Mean Corpuscular Hemoglobin 31.4 PG (26-34); Mean Corpuscular Volume 94.7 fL (80-100); Monocytes Absolute Auto 1100 /uL (0-900); Neutrophils Absolute Auto 7800 /uL (1500-7000); Neutrophils Percent Auto 57.9 % (50-75); Platelet Count 288 X10^3/uL (150-400); Red Blood Cell Count 4.38 X10^6/uL (4.0-5.2); White Blood Cell Count 13.5 X10^3/uL (4.5-11.0)
[2023-10-17 05:35] LABS: BUN Creatinine Ratio 10.6 (6-22); Blood Urea Nitrogen 5 mg/dL (7-17); Calcium 8.8 mg/dL (8.4-10.2); Carbon Dioxide 23 mmol/L (22-32); Chloride 101 mmol/L (98-107); Estimated Glomerular Filt Rate > 60 mL/min (>60); Glucose 194 mg/dL (70-100); HEMOLYSIS 43 (0-50); Potassium 3.2 mmol/L (3.4-5.1); Sodium 134 mmol/L (137-145)
--- NOTE | 2023-10-17 06:51 | PC.NURSE ---
Admit/NOC Shift Note- Patient arrived to room from ER [id number]. Admit questions done, [id number] reviewed, physical assessment done, and sk9n chek completed. Patient oriented to bed and bed controls, room, lights, bathroom, menu, and call sprague/tv remote. Patient agress to call for assistance as needed, callbell and phone within reach. Will ontinue to monitor.
[2023-10-17 07:36] VITALS: BP 160/90; PULSE 105; RESP 18; TEMP 36.2; O2SAT 97
[2023-10-17] MEDS: INSULIN LISPRO 100 UNIT/ML 3ML VIAL SUBCUT (07:57)
[2023-10-17] MEDS: PANTOPRAZOLE 40 MG VIAL IV (08:10)
[2023-10-17] MEDS: ENOXAPARIN 40 MG/0.4 ML SYRINGE SUBCUT (08:10)
[2023-10-17] MEDS: POTASSIUM CHLORIDE 20 MEQ TAB 40 MEQ PO (09:41)
--- NOTE | 2023-10-17 10:00 | PC.NURSE ---
Pt is dressed and ready for discharge home with Caregiver. Pt IV's have been removed. Went over d/c instructions with Pt and Caregiver-discussed d/c meds, time of last dose, reviewed stroke education, encouraged fluid intake to prevent constipation or dehydration and encouraged Pt to consider paying attention to her electrolyte balance - po potassium given. Pt denied further questions and was taken out via w/c by WOOD [employer]AT [employer]ILDER SUPERVISOR to POV with Caregiver and all belongings.
--- NOTE | 2023-10-17 12:02 | CM.DANOTE ---
DCP Assessment Note Patient is a 53yo F here with nausea/vomiting. PCP Shikha [facility] and Medicaid LAUNDRY W[employer]ER reviewed EMR. Patient d/c prior to being seen by this author. From chart, patient d/c home with no needs from CM team. Plan: home today. No need from CM team identified at this time. CM team will continue to follow as needed. JANET Anderson Discharge Planning/Care Management CM Discharge Assessment Start: 10/17/23 12:01 Freq: Status: Active Protocol: Document 10/17/23 12:01 (Rec: 10/17/23 12:02 [id number]) Discharge Planning Assessment Assigned [employer] JANET Waller DPOA/Assigned Designee Name Alea (daughter( Contact Information [phone] Advance Directives? No History Provided By Medical Record Prior Living Arrangements Apartment/Condo Household Members none Type of transporation used prior to Drives own vehicle admit Barriers to Discharge No Discharge Plan Home Whiteboard Updated in Patient Room with No name and ext. # of [employer] Grazier Review Status In Process Next Review Type Continued Stay Review
--- NOTE | 2023-10-18 19:40 | PM.DS.1 ---
History of Present Illness History of Present Illness Chief complaint: vomiting 3 day Narrative: Ms. Paz is a 53W with PMH GERD, COPD, HTN, DENIZ, DM who presents to the hospital with nausea and vomiting. She ran out of her medication for GERD a few days ago. She started experiencing reflux and heartburn. This progressed to nausea, vomiting, and abdominal pain. She has not had diarrhea. No blood noted. In the ED workup was done, vitals notable for afebrile, tachycardic, tachypneic. Labs reviewed and notable for WBC 15.2, plts 386. Na 135, creatinine 0.68. Lactate 5.1. Ketones 2.27. Vbg ph 7.60. Urine noted bacteria and no WBCs. She was given IV fluids and lactate improved only slightly to 4.7. Chest xray with no acute process. CT abdomen with lymph node noted perirectally. She was admitted for further treatment. Discharge Providers Provider Date of admission: 10/16/23 18:05 Discharge Date: 10/17/23 Primary care physician: Shikha Swartz PA-C Discharge provider: Rob Samaniego MD Summary Hospital Course Discharge Diagnosis: 1. Nausea, vomiting 2. UTI 3. GERD 4. DENIZ 5. Rectal lymph node Hospital Course: Ms. Paz was admitted after running out of her PPI. She developed reflux and then nausea and vomiting. She had a UTI which may have been contributing as well. She was discharged on antibiotics and restarted on PPI. She has a known rectal lymph node that is enlarging, she had recent colonoscopy with noted polyps and plan for follow up colonoscopy within two years. Exam Vital Signs (past 8 hours): Oxygen Delivery Method Room Air Oxygen Flow Rate 0 Narrative Exam Narrative: GEN: no acute distress HEENT: dry mucous membranes CV: tachycardic, no murmurs PULM: clear bilaterally ABD: soft, nontender NEURO: no focal deficits Objective Labs 10/17/23 04:59 10/17/23 04:59 [facility] Medical History Chest pain Endometriosis History of TIA (transient ischemic attack) Obstructive sleep apnea on CPAP GERD (gastroesophageal reflux disease) History of adenomatous polyp of colon Pyloric channel ulcer Weight loss Epigastric pain Bowel and bladder incontinence Arthritis COPD (chronic obstructive pulmonary disease) Chronic pain Anxiety Fibromyalgia Hyperlipidemia HTN (hypertension) Diabetes Surgical History History of appendectomy History of tonsillectomy History of esophagogastroduodenoscopy (EGD) (~07/2020) History of colonoscopy (~07/2020) Hx of hysterectomy Family History Grandfather Hypertension Heart disease Diabetes mellitus Grandmother Diabetes mellitus Hypertension Heart disease Mother Ovarian cancer Social History marital status: unknown household members: none Smoking Status: Current every day smoker alcohol intake: current substance use type: marijuana Discharge Plan Discharge Plan Patient Disposition: Home Provider Discharge Comment: Ms. Paz was admitted with vomiting. She had run out of her pantoprazole, but it has now been delivered to her home. She was diagnosed with a urine infection and will be discharged on antibiotics. Discharge orders & Medications Prescriptions: New levofloxacin 250 mg tablet 250 mg PO DAILY Qty: 2 0RF ondansetron 4 mg tablet,disintegrating 4 mg PO Q8H PRN (Reason: nausea and vomiting) Qty: 10 0RF Continued multivitamin Capsule 1 cap PO DAILY melatonin 5 mg capsule 5 mg PO DAILY albuterol sulfate [Proventil HFA] 90 mcg/actuation HFA aerosol inhaler 1 inhalation INHALATION PRN PRN (Reason: Wheezing) diphenhydramine HCl [Allergy (diphenhydramine)] 25 mg capsule 25 mg PO BEDTIME pantoprazole 20 mg tablet,delayed release (DR/EC) 20 mg PO DAILY loperamide 2 mg capsule 2 mg PO BID PRN (Reason: Diarrhea) Victoza 2-Leroy 0.6 mg/0.1 mL (18 mg/3 mL) Pen Injector 1.8 mg subcut DAILY atorvastatin 20 mg tablet 20 mg PO DAILY lisinopril 2.5 mg tablet 20 mg PO DAILY Rx Instructions: Allergy to medication- not taking acetaminophen [Tylenol Extra Strength] 500 mg Tablet 1,000 mg PO DAILY nitroglycerin [Nitrostat] 0.4 MG tablet, sublingual 0.4 mg Sublingual Q5MP PRN (Reason: Chest Pain) promethazine 25 mg tablet 25 mg PO TID PRN (Reason: nausea and vomiting) Qty: 10 0RF Rx Instructions: No longer taking epinephrine 0.3 mg/0.3 mL auto-injector 0.3 mg IM Q5-15M PRN (Reason: anaphylaxis) Qty: 2 0RF Rx Instructions: do not exceed 3 doses per episode Follow up/Referrals: Shikha Swartz PA-C [Primary Care Provider] - Visit Report/Discharge Packet Instructions: DI for Hyperglycemia -- Adult, DI for Sepsis -- Adult Stand Alone Forms: Patient Portal/API, Stroke Signs & Symptoms Discharge Data Primary Care Provider: Shikha Swartz Attending Provider: Rob Samaniego Admit Date/Time: 10/16/23 18:05
== END 2023-10-17 10:03 | disposition home or self-care (01) ==
LOC: ED 14:05 → AC 18:05
PROVIDERS: Admitting Provider Internal Medicine; Emergency Provider Emergency Medicine; PCP Physician Assistant; Referring Provider Emergency Medicine; Visit Provider Internal Medicine
DX: R11.2 Nausea with vomiting, unspecified (principal); J44.9 Chronic obstructive pulmonary disease, unspecified; I10 Essential (primary) hypertension; G47.33 Obstructive sleep apnea (adult) (pediatric); E11.9 Type 2 diabetes mellitus without complications; K21.9 Gastro-esophageal reflux disease without esophagitis; F17.210 Nicotine dependence, cigarettes, uncomplicated; N39.0 Urinary tract infection, site not specified; Z79.84 Long term (current) use of oral hypoglycemic drugs
CPT/HCPCS: 36415; 71045; 74177; 80048; 80053; 81003; 81015; 82009; 82550; 82805; 82962; 83605; 83690; 84145; 84484; 85025; 85610; 85730; 87040; 87086; 87633; 93005; 93010; 96365; 96372; 96375; 96376; 99284; G0378; C9113; J0696; J1650; J1815; J1885; J2060; J2405; Q9967

== ENCOUNTER → 2023-12-21 11:22 | Outpatient (CLI) | payer MEDICARE, MEDICAID, SELFPAY ==
[2023-12-21 12:31] LABS: Add Manual Diff / Slide Review NO; Basophils Absolute Auto 100 /uL (0-100); Basophils Percent Auto 0.7 % (0-2); Eosinophils Absolute Auto 200 /uL (0-450); Eosinophils Percent Auto 1.4 % (2-4); Hemoglobin 15.1 g/dL (12.0-16.0); Lymphocytes Absolute Auto 2600 /uL (1100-4500); Lymphocytes Percent Auto 23.4 % (25-40); Mean Corpuscular HGB Conc 34.2 % (30-36); Mean Corpuscular Hemoglobin 31.5 PG (26-34); Mean Corpuscular Volume 91.9 fL (80-100); Monocytes Absolute Auto 700 /uL (0-900); Monocytes Percent Auto 6.5 % (3-14); Neutrophils Absolute Auto 7700 /uL (1500-7000); Platelet Count 366 X10^3/uL (150-400); Red Blood Cell Count 4.79 X10^6/uL (4.0-5.2); Red Cell Distribution Width 13.4 % (11.6-14.8); White Blood Cell Count 11.2 X10^3/uL (4.5-11.0)
[2023-12-21 12:46] LABS: INR 0.9 (0.9-1.3); Prothrombin Time 10.5 SECONDS (9.4-12.5)
[2023-12-21 12:49] LABS: PTT Partial Thromboplastin Tim 30 SECONDS (25.1-36.5)
[2023-12-21 12:51] LABS: BUN Creatinine Ratio 16.7 (6-22); Blood Urea Nitrogen 9 mg/dL (7-17); Calcium 10.2 mg/dL (8.4-10.2); Carbon Dioxide 23 mmol/L (22-32); Chloride 102 mmol/L (98-107); Estimated Glomerular Filt Rate > 60 mL/min (>60); Glucose 168 mg/dL (70-100); HEMOLYSIS < 15 (0-50); Potassium 4.2 mmol/L (3.4-5.1); Sodium 136 mmol/L (137-145)
== END ==
PROVIDERS: PCP Physician Assistant; Referring Provider Physical Medicine & Rehabilitation; Visit Provider Physical Medicine & Rehabilitation
DX: Z01.818 Encounter for other preprocedural examination (principal); Z51.81 Encounter for therapeutic drug level monitoring; Z01.812 Encounter for preprocedural laboratory examination
CPT/HCPCS: 36415; 80048; 85025; 85610; 85730; 93005

== ENCOUNTER 2023-12-27 06:29 | Day surgery (SDC) | payer MEDICARE, MEDICAID, SELFPAY ==
[2023-12-24 15:13] VITALS: BMI 32.8
[2023-12-27] VITALS (7 sets, daily range): BP systolic 119–149; BP diastolic 78–96; PULSE 88–95; RESP 12–20; TEMP 36.2–36.6; O2SAT 92–97; BMI 32.8
[2023-12-27] MEDS: ACETAMINOPHEN 325 MG TABLET 975 MG PO (07:05)
[2023-12-27] MEDS: LACTATED RINGERS 1,000 ML 42 ML IV (07:05)
--- NOTE | 2023-12-27 07:52 | P.HP_ITS ---
History of Present Illness History of Present Illness Chief complaint: Spinal Cord Stimulator Insertion Narrative: chronic low back pain presenting for spinal cord stimulator implant [facility] Medical History Malignant hyperthermia Chest pain Endometriosis History of TIA (transient ischemic attack) Obstructive sleep apnea on CPAP GERD (gastroesophageal reflux disease) History of adenomatous polyp of colon Pyloric channel ulcer Weight loss Epigastric pain Bowel and bladder incontinence Arthritis COPD (chronic obstructive pulmonary disease) Chronic pain Anxiety Fibromyalgia Hyperlipidemia HTN (hypertension) Diabetes Surgical History History of appendectomy History of tonsillectomy History of esophagogastroduodenoscopy (EGD) (~07/2020) History of colonoscopy (~07/2020) Hx of hysterectomy Family History Grandfather Hypertension Heart disease Diabetes mellitus Grandmother Diabetes mellitus Hypertension Heart disease Mother Ovarian cancer Social History marital status: unknown household members: none Smoking Status: Current every day smoker alcohol intake: current substance use type: marijuana Meds Home Medications and Allergies Home Medications Medication Instructions Recorded Confirmed Type liraglutide 0.6 mg/0.1 mL (18 mg/3 1.8 mg SUBCUT DAILY 09/18/18 12/27/23 History mL) subcutaneous pen injector (Victoza 2-Leroy) loperamide 2 mg capsule 2 mg PO BID PRN Diarrhea 09/18/18 12/27/23 History atorvastatin 20 mg tablet 20 mg PO DAILY 01/10/19 12/27/23 History albuterol sulfate 90 mcg/actuation 1 inhalation inhalation PRN PRN 08/11/20 12/27/23 History aerosol inhaler (Proventil HFA) Wheezing diphenhydramine HCl 25 mg capsule 25 mg PO BEDTIME 08/11/20 12/27/23 History (Allergy (diphenhydramine)) melatonin 5 mg capsule 5 mg PO DAILY 08/11/20 12/27/23 History multivitamin 1 cap PO DAILY 08/11/20 12/27/23 History pantoprazole 20 mg tablet,delayed 20 mg PO DAILY 08/11/20 12/27/23 History release acetaminophen 500 mg tablet 1,000 mg PO DAILY 08/24/20 12/27/23 History (Tylenol Extra Strength) promethazine 25 mg tablet 25 mg PO TID PRN nausea and 06/16/22 10/16/23 Rx vomiting #10 tabs epinephrine 0.3 mg/0.3 mL 0.3 mg (0.3 mL) IM Q5-15M PRN 01/12/23 12/27/23 Rx injection, auto-injector anaphylaxis #2 ea nitroglycerin 0.4 mg sublingual 0.4 mg sublingual Q5MP PRN Chest 10/16/23 12/27/23 History tablet (Nitrostat) Pain levofloxacin 250 mg tablet 250 mg PO DAILY #2 tabs 10/17/23 12/27/23 Rx ondansetron 4 mg disintegrating 4 mg PO Q8H PRN nausea and 10/17/23 Rx tablet vomiting #10 tabs Allergies Allergy/AdvReac Type Severity Reaction Status Date / Time lisinopril Allergy Severe Anaphylaxis Verified 12/27/23 07:28 adhesive [ADHESIVE] Allergy Intermediate RASH Verified 12/27/23 07:28 metformin [METFORMIN] AdvReac Intermediate VOMITING/DI Verified 12/27/23 07:28 ARRHEA codeine [CODEINE] AdvReac Mild VOMITING Verified 12/27/23 07:28 Exam Vital Signs (past 8 hours): - 12/27/23 07:06 Temperature 97.4 F L Pulse Rate 89 Respiratory Rate 18 Blood Pressure 125/89 Pulse Oximetry 97 Oxygen Delivery Method Room Air Oxygen Delivery Method Room Air HENMT Other: normal Chest Other: normal Resp Other: normal Cardio Other: normal Neuro Other: normal Assessment & Plan Assessment and plan (1) Lumbar radiculopathy: Status: Acute (2) Lumbar spondylosis: Status: Acute Plan will proceed with spinal cord stimulator implant. follow up in 2 weeks for post op care
[2023-12-27] MEDS: CEFAZOLIN 2 GM/100 ML PREMIX 100 ML IV (08:14)
--- NOTE | 2023-12-27 08:34 | SUR.OPER ---
Supine on padded OR bed, head on pillow, arms secured on padded arm boards at <90 degrees abduction, legs uncrossed, safety belt at thigh, tape over blanket over lower legs.
[2023-12-27] MEDS: BUPIVACAINE 0.25% (PF) 30 ML, EPINEPHrine 0.15 MG INJ (08:45)
[2023-12-27] MEDS: LIDOCAINE 1% 20 ML INJ (09:14)
[2023-12-27] MEDS: BUPIVACAINE 0.5% (PF) 30 ML, EPINEPHrine 0.15 MG INJ (09:16)
[2023-12-27] MEDS: INSULIN REGULAR 100 UNIT/ML 3 ML VIAL IV (10:21)
[2023-12-27] MEDS: HYDROMORPHONE 1 MG INJ IV (10:27)
[2023-12-27] MEDS: hydrOXYzine 50 MG/ML INJ 25 MG IM (10:28)
[2023-12-27] MEDS: OXYCODONE IR 5 MG TABLET PO (10:37)
[2023-12-27] MEDS: ONDANSETRON 4 MG/2 ML INJ IV (10:40)
--- NOTE | 2023-12-27 10:48 | DI.RAD.S_ITS ---
PROCEDURE: XR THORACIC SPINE 2V INDICATIONS: CORD STIMULATOR TECHNIQUE: 2 views of the thoracic spine were acquired. COMPARISON: [facility], CR, XR LUMBAR SPINE WITH FLEXION EXTENSION 5 VIEWS, 09/01/2022, 11:21. MR, MR LUMBAR SPINE WO CON, 09/15/2022, 15:21. [facility], RF, SPINAL CORD STIMULATORS, 11/29/2023, 9:20. FINDINGS: 2 fluoroscopy images demonstrate placement of a nerve stimulator with electrodes at level of T8-T9. IMPRESSION: Fluoroscopy for nerve stimulator placement. Dictated by: Leah Salgado M.D. on 12/27/2023 at 13:24 Approved by: Leah Salgado M.D. on 12/27/2023 at 13:25
--- NOTE | 2023-12-27 12:47 | P.OP_ITS ---
Operative Date/Time/Diagnoses Date of procedure: 12/27/23 Time of procedure: 07:45 Pre-op diagnosis: Lumbar spondylosis, lumbar radiculopathy Post-op diagnosis: same Procedure & Clinicians Procedure: Spinal cord stimulator implantation of pulse generator and leads. Same procedure as scheduled: Yes Indications: Intractable back and leg pain Surgeon: Sixto Christensen Click Yes if Unassisted: Yes Anesthesia Type: General and Local Operative Notes Findings: None Closure Type: primary Specimen(s): none sent Prosthetic devices, grafts, tissues, transplants, or devices: Implants: Medtronic 60 cm 8 contact leads x 2. Medtronic Intellis pulse generator, Estimated Blood Loss (mL): 10 Blood products transfused: none Tourniquet time (min): 0 Procedure in detail: Patient Placed prone on the fluoroscopy table. Thoracolumbar spine was cleansed with ChloraPrep. Draped with border drapes, Ioban and lap drape. Fluoroscopy was used to identify the T12-L1 interspace. An incision was made at the L1-2 spinous process After anesthetization with 1% lidocaine and 0.25% Marcaine with epinephrine. Careful dissection made down into the fascial level.Curved Touhy needle was used to advance into the right paracentral T12-L1 interspaceUsing loss of resistance technique. A contact percutaneous lead was advanced under live fluoroscopy up to right T8 paramedian. Next a second curved needle was inserted left paramedian into the T12-L1 epidural interspace. A second 8 contact lead was advanced up to left T8 paramedian Under live fluoroscopy. Final resting positions were covering T8 to midT10 levels. Lateral view was obtained to demonstrate dorsal placement.Next attention was turned to the left lower lumbar spine flank region where a pulse generator pocket was made. This was anesthetized with 1% lidocaine/0.25% Marcaine with epinephrine.Blunt dissection was used to create a small pocket at the fascial layer, to accommodate the pulse generator.The leads were then tunneled from the midline incision to the pocket to the pulse generator, checked for connectivity with no impedances in the contacts.Screws were tightened with a torque wrench.The pocket and midline incision were irrigated with normal saline.Closure of the deep layers using Interrupted 2-0 Vicryl.Next the dermal layers were closed with interrupted 3-0 Monocryl. superficial layer was closed with running 4-0 Mo nocryl. Steri-Strips and Mastisol were placedOn the skin, With gauze and Tegaderm overlying.Patient was in taken to the PACU. Instructions were given to limit bending lifting twisting. She can remove the Tegaderm and day 3 and shower. The device will be off until she returns 2 weeks later for postoperative visit.She was discharged with postoperative antibiotics and pain medication. Complications: none Post-operative Condition: stable Disposition: PACU Plan for aftercare: Follow-up in 2 weeks for suture removal and device programming.
== END 2023-12-27 10:58 | disposition home or self-care (01) ==
PROVIDERS: PCP Physician Assistant; Referring Provider Physical Medicine & Rehabilitation; Visit Provider Physical Medicine & Rehabilitation
PROC: (CPT 63685; principal; 2023-12-27 07:45)
DX: M79.7 Fibromyalgia; E11.9 Type 2 diabetes mellitus without complications; M47.26 Other spondylosis with radiculopathy, lumbar region; G47.33 Obstructive sleep apnea (adult) (pediatric); J44.9 Chronic obstructive pulmonary disease, unspecified; K21.9 Gastro-esophageal reflux disease without esophagitis; I10 Essential (primary) hypertension; I25.10 Atherosclerotic heart disease of native coronary artery without angina pectoris; E66.9 Obesity, unspecified; F17.210 Nicotine dependence, cigarettes, uncomplicated; F12.980 Cannabis use, unspecified with anxiety disorder; Z68.32 Body mass index [BMI] 32.0-32.9, adult; Z86.73 Personal history of transient ischemic attack (TIA), and cerebral infarction without residual deficits
CPT/HCPCS: 63650; 63685; 72070; 76000; 82962; C1776; J0171; J0330; J0690; J1100; J1170; J2250; J2405; J2704; J3010; J3410

== ENCOUNTER → 2024-11-07 11:28 | Outpatient (CLI) | payer MEDICARE, MEDICAID, SELFPAY ==
--- NOTE | 2024-11-07 11:31 | DI.MG.S_ITS ---
BILATERAL DIGITAL SCREENING MAMMOGRAM 3D/2D WITH CAD: 11/07/2024 CLINICAL: Routine screening. Family history of breast cancer. Comparison is made to exams dated: 08/01/2022 mammogram, 03/29/2018 mammogram, and 03/07/2017 mammogram - [facility]. There are scattered areas of fibroglandular density (category b / 25%-50% glandular tissue). Current study was also evaluated with a Computer Aided Detection (CAD) system. No significant masses, calcifications, or other findings are seen in either breast. There has been no significant interval change. IMPRESSION: NEGATIVE There is no mammographic evidence of malignancy. A 1 year screening mammogram is recommended. Based on the Tyrer Cuzick model (a risk assessment model) the patient's lifetime risk is 8.2% and her 10 year risk is 2.5%. According to the ACR, ACS, and NCCN guidelines, an annual breast MRI exam along with mammogram is recommended if the patient's lifetime risk is 20% or greater. This exam was interpreted at Station ID: [id number]. NOTE: For mammograms, a report in lay terms will be sent to the patient. Approximately 15% of breast malignancies will not be visualized mammographically. In the management of a palpable breast mass, a negative mammogram must not discourage biopsy of a clinically suspicious lesion. Electronically Signed By: Getachew martinez/esequiel:11/11/2024 07:25:21 copy to: KISHAN ALVARADO letter sent: Normal Exam ACR BI-RADS Category 1: Negative
== END ==
PROVIDERS: PCP Physician Assistant; Referring Provider Physician Assistant; Visit Provider Physician Assistant
DX: Z12.31 Encounter for screening mammogram for malignant neoplasm of breast (principal); Z80.3 Family history of malignant neoplasm of breast
CPT/HCPCS: 77063; 77067

== ENCOUNTER → 2024-12-10 12:49 | Outpatient (CLI) | payer MEDICARE, MEDICAID, SELFPAY ==
--- NOTE | 2024-12-10 12:52 | DI.CT.S_ITS ---
PROCEDURE: CT LUNG LOW DOSE SCREENING INDICATIONS: CURRENT SMOKER TECHNIQUE: Noncontrast 2.0-2.5 mm thick sections acquired from the pulmonary apices to the posterior costophrenic angles. 7 mm thick axial MIP, and 5 mm coronal and sagittal reformats were then acquired. For radiation dose reduction, the following was used: automated exposure control, adjustment of mA and/or kV according to patient size. COMPARISON: [facility], CT, CT CHEST W CON, 09/13/2020, 12:34. [facility], CT, CT ANGIO CHEST PE PROTOCOL, 07/30/2020, 1:30. FINDINGS: Image quality: Diagnostic. Lower Neck: No enlarged lymph nodes. Thyroid: No thyroid nodules which require sonographic follow up, per consensus guidelines. Axillae: No enlarged lymph nodes. Chest Wall: Unremarkable. Bones: There is a thoracic spine stimulator present. Age-appropriate bony degenerative changes are seen. Accentuated thoracic kyphosis is seen. Lungs and Pleura: At the right lung apex, there is a soft tissue nodule seen, as on series 3, image 50, measuring 9 x 7 mm. This is not seen on the 2020 examination, even in retrospect. No focal infiltrates are seen. No pneumothorax or pleural effusions are seen. Heart: Heart size is normal. No pericardial effusion. There is mild coronary artery calcification. Thoracic Vessels: The aorta and pulmonary arteries demonstrate normal size. Mediastinum and Bita: A group of enlarged lymph nodes can be seen within the right paratracheal region, measuring 5.3 x 3.4 cm in greatest axial dimension. This is new compared to 2020. Esophagus: No wall thickening. No hiatal hernia. Upper Abdomen: Visualized upper abdomen solid organs and bowel loops appear normal. IMPRESSION: There is a 9 mm nodule seen at the right lung apex. There is a group of abnormal lymph nodes seen within the right perihilar region, which are highly suspicious for metastatic disease. LUNG-RADS 4X; additional workup is recommended, beginning with a dedicated PET-CT. Clinically Significant Non-pulmonary Findings: Mild coronary artery calcification Thoracic spine stimulator Dictated by: Wiliam Do M.D. on 12/10/2024 at 16:39 Approved by: Wiliam Do M.D. on 12/10/2024 at 16:48
== END ==
LOC: CT 12:51
PROVIDERS: PCP Physician Assistant; Referring Provider Nurse Practitioner Family; Visit Provider Nurse Practitioner Family
DX: F17.210 Nicotine dependence, cigarettes, uncomplicated (principal); R91.1 Solitary pulmonary nodule; R59.0 Localized enlarged lymph nodes
CPT/HCPCS: 71271

== ENCOUNTER 2025-05-07 11:45 | Emergency (ER) | payer MEDICARE, MEDICAID, SELFPAY ==
[2025-05-07 11:50] VITALS: BP 110/61; PULSE 135; RESP 18; TEMP 36.9; O2SAT 99; BMI 29.8
--- NOTE | 2025-05-07 12:06 | DI.RAD.S_ITS ---
PROCEDURE: XR CHEST 1V INDICATIONS: suspected sepsis TECHNIQUE: One view of the chest was acquired. COMPARISON: [facility], CR, XR CHEST 1V, 10/16/2023, 14:08. FINDINGS: Surgical changes and devices: Left chest wall Port-A-Cath tip is in SVC. Stimulator leads are seen projecting in mid thoracic spine. Lungs and pleura: Lungs are clear. No pleural effusions or pneumothorax. Mediastinum: Mediastinal contours appear normal. Heart size is normal. Bones and chest wall: No suspicious bony lesions. Overlying soft tissues appear unremarkable. IMPRESSION: No acute cardiopulmonary pathology. Dictated by: Iglesia Watson M.D. on 05/07/2025 at 13:15 Approved by: Iglesia Watson M.D. on 05/07/2025 at 13:16
--- NOTE | 2025-05-07 12:06 | EKG_ITS ---
[address] [address] Test Date: 2025-05-07 Pat Name: Rachana Brandi Department: [facility] Room: Gender: Female [employer] Yard: ISAAC : 1970 Requested By: Order Number: [id number] Reading MD: Nestor Guardado Measurements Intervals [place] Rate: 119 P: 15 OK: 170 QRS: 33 QRSD: 84 T: 7 QT: 324 QTc: 455 Interpretive Statements Sinus tachycardia Electronically Signed On 05-08-2025 0:12:18 PDT by Nestor Guardado
[2025-05-07] MEDS: SODIUM CHLORIDE 0.9% 1,000 ML 1000 ML IV ×2 (12:39→14:29)
[2025-05-07 12:46] LABS: Add Manual Diff / Slide Review NO; Basophils Absolute Auto 0 /uL (0-100); Basophils Percent Auto 0.9 % (0-2); Eosinophils Absolute Auto 0 /uL (0-450); Eosinophils Percent Auto 0.1 % (2-4); Hematocrit 29.4 % (36-46); Hemoglobin 10.5 g/dL (12.0-16.0); Lymphocytes Absolute Auto 800 /uL (1100-4500); Mean Corpuscular HGB Conc 35.9 % (30-36); Mean Corpuscular Hemoglobin 33.5 PG (26-34); Mean Corpuscular Volume 93.3 fL (80-100); Monocytes Absolute Auto 200 /uL (0-900); Monocytes Percent Auto 8.4 % (3-14); Neutrophils Absolute Auto 1900 /uL (1500-7000); Neutrophils Percent Auto 64.6 % (50-75); Platelet Count 125 X10^3/uL (150-400); Red Blood Cell Count 3.15 X10^6/uL (4.0-5.2); Red Cell Distribution Width 21.3 % (11.6-14.8)
[2025-05-07 12:54] LABS: Anisocytosis 2+
[2025-05-07 12:56] LABS: Prothrombin Time 11.2 SECONDS (9.4-12.5)
[2025-05-07 12:58] LABS: PTT Partial Thromboplastin Tim 30 SECONDS (25.1-36.5)
[2025-05-07 13:00] LABS: Alanine Aminotransferase 16 IU/L (<35); Albumin 4.2 g/dL (3.5-5.0); Albumin Globulin Ratio 1.3 (1.0-2.8); Alkaline Phosphatase 84 U/L (38-126); Aspartate Aminotransferase 25 IU/L (14-36); Bilirubin Total 0.6 mg/dL (0.2-1.3); Blood Urea Nitrogen 20 mg/dL (7-17); Calcium 9.2 mg/dL (8.4-10.2); Carbon Dioxide 26 mmol/L (22-32); Chloride 95 mmol/L (98-107); Estimated Glomerular Filt Rate > 60 mL/min (>60); Globulin 3.2 g/dL (1.7-4.1); Glucose 187 mg/dL (70-99); HEMOLYSIS < 15 (0-50); Lipase 100 U/L (23-300); Potassium 3.7 mmol/L (3.4-5.1); Sodium 131 mmol/L (137-145); Total Protein 7.4 g/dL (6.3-8.2)
[2025-05-07 13:01] LABS: Lactate (Lactic Acid) 1.3 mmol/L (0.7-2.1)
[2025-05-07 13:17] LABS: Procalcitonin 0.173 ng/mL (<0.5)
[2025-05-07] MEDS: HYDROMORPHONE 0.5 MG INJ IV (14:28)
[2025-05-07 14:34] VITALS: BP 109/64; PULSE 115; RESP 20; O2SAT 98
[2025-05-07 15:09] VITALS: BP 122/53; PULSE 113; RESP 18; TEMP 36.8; O2SAT 97
[2025-05-07 15:38] LABS: Appearance Urine UA CLEAR; Bilirubin Urine UA NEGATIVE (NEGATIVE); Color Urine UA YELLOW; Glucose Urine UA NEGATIVE (Negative); Ketones Urine UA TRACE (NEGATIVE); Leukocyte Esterase Urine UA NEGATIVE (NEGATIVE); Nitrite Urine UA NEGATIVE (Negative); Occult Blood Urine UA NEGATIVE (Negative); Protein Urine UA TRACE (Negative); Urobilinogen Urine UA 0.2 E.U./dL (0.2)
[2025-05-07 15:45] VITALS: BP 120/60; PULSE 107; RESP 18; TEMP 37.1; O2SAT 99
[2025-05-07 15:46] LABS: Bacteria Urine Few (2-10); Culture Indicated Urine Cult Not Indicated; RBC Urine 0-1/HPF (0-5/HPF); Squamous Epithelial Cell Urine 5-10 /HPF (0-5/HPF); Urine Volume 10mL (spun); WBC Urine 1-5/HPF (0-5/HPF)
== END 2025-05-07 15:45 | disposition left against medical advice (07) ==
PROVIDERS: Emergency Provider Emergency Medicine; PCP Physician Assistant
DX: R11.2 Nausea with vomiting, unspecified (principal); R00.0 Tachycardia, unspecified; C34.90 Malignant neoplasm of unspecified part of unspecified bronchus or lung
CPT/HCPCS: 36415; 71045; 80053; 81001; 81003; 83605; 83690; 84145; 85025; 85610; 85730; 87040; 93005; 96361; 96374; 99284; J1171